=== PATIENT | male | born 1930 | race Caucasian/White ===

== ENCOUNTER 2016-07-21 10:26 | Inpatient (IN) | payer MEDICARE ==
[2016-07-21] VITALS (7 sets, daily range): BP systolic 109–149; BP diastolic 72–82; PULSE 84–88; RESP 16–28; O2SAT 94–98
[~2016-07-21] VITALS: Ht 177.8 cm; Wt 101.4 kg
[2016-07-21] MEDS ORDERED: METO-272 PO (13:00)
[2016-07-21] MEDS ORDERED: VENL75TA87 PO (13:00)
[2016-07-21] MEDS ORDERED: AMLO5TAB2 PO (13:00)
[2016-07-21] MEDS ORDERED: SOLI5TAB2 PO (13:01)
[2016-07-21] MEDS ORDERED: ALLO300T2 PO (13:02)
[2016-07-21] MEDS ORDERED: ENAL20TA PO (13:03)
[2016-07-21] MEDS ORDERED: Senna-Docusate 8.6-50 mg Tablet PO PRN (13:05)
[2016-07-21] MEDS ORDERED: Ondansetron 2 mg/mL 2 mL Inj IVPUSH PRN (13:05)
[2016-07-21] MEDS ORDERED: Alum-Mag Hydrox-Simeth 30 mL Suspension PO PRN (13:05)
[2016-07-21] MEDS ORDERED: Polyethylene Glycol (PEG) 17 Gm Powder PO PRN (13:05)
[2016-07-21] MEDS ORDERED: CALC0.257 PO (13:06)
[2016-07-21] MEDS ORDERED: PRAV40TA PO (13:06)
[2016-07-21] MEDS ORDERED: WARF5TAB7 PO (13:06)
[2016-07-21] MEDS ORDERED: WARF2.5T82 PO (13:06)
[2016-07-21] MEDS ORDERED: LATA2.5D6 BOTH_EYES (13:09)
[2016-07-21] MEDS ORDERED: TIMO5DRO26 BOTH_EYES (13:09)
[2016-07-21] MEDS ORDERED: OXYC-466 PO (13:09)
[2016-07-21] MEDS ORDERED: FURO80TA83 PO (13:10)
[2016-07-21] MEDS ORDERED: GABA-500 PO (13:10)
[2016-07-21] MEDS ORDERED: MULT-1083 PO (13:14)
[2016-07-21] MEDS ORDERED: CLOT15CR5 TOPICAL (13:14)
[2016-07-21] MEDS ORDERED: FERR325T39 PO (13:14)
[2016-07-21] MEDS ORDERED: UBID100C PO (13:14)
[2016-07-21] MEDS ORDERED: CHOL10008 PO (13:15)
--- NOTE | 2016-07-21 13:42 | NUR ---
Admit nurse: Direct admit from [facility], blood infusing on arrival. Med rec done with pt/spouse list and interview. Admit completed with info from spouse, pt on Bipap. Off Bipap, O2 sats dropped to 70s.
--- NOTE | 2016-07-21 15:16 | PCM.HPMED ---
Subjective Date of Service Jul 21, 2016 Primary Provider: Admitting Physician: Dayday Leyva MD Primary Care Physician: David Nascimento MD Attending Physician: Dayday Leyva MD Admit Status: Direct Admit, Critical Care Chief Complaint: Shortness of breath/difficulty breathing History of Present Illness: Mr. Sanchez is an 86-year-old gentleman with past medical history of hypertension, congestive heart failure, nephrolithiasis and atrial fibrillation (on anticoagulation) who presented to [facility] via EMS secondary to worsening of dyspnea 2-3 days. At time of interview patient on BiPAP and unable to answer in short 1-2 word answers history of present illness obtained though patient as well as his , daughter and son-in-law all present in the room. Approximately 3 weeks prior to today's admission patient had a ground-level fall (trip and fall) in his home landing on the right side of his body did not strike his head did not lose consciousness, reports no significant injuries resulting from this fall at the time. The following morning patient was unable to get out of bed secondary to extreme neck, back and right sided abdominal/flank pain presumably from this fall. This gradually improved over the next few weeks though never completely dissipated. During this time patient became noncompliant with some of his medications most notably his Lasix (160 mg daily) as it would "make him P2 much " so he stopped taking these. He became progressively short of breath to the point where he was unable to walk more than 10 feet. Upon discovering this his restarted him on this medication approximately one week ago. Over the last 2-3 days he has become progressively short of breath on exertion as well as while at rest to the point where called EMS. He does not endorse a cough with the exception of a chronic cough after drinking liquids which has been present for some time now. He denies any fevers or sick contacts. Denies any headache, altered mental status denies, visual changes though endorses a left eye blurriness which has been present for some time. He does endorse shortness of breath upon exertion, right lower quadrant abdominal/flank pain right lower extremity pain and a right lower and upper extremity weakness. Family history: Mother passed secondary to call patient's from diabetes requiring multiple amputations as well as eventual intubation and ventilatory support prior to her . Father passed from myocardial infarction age 74. Sister passed from stroke 2 years ago. Social history: Prior smoker quit 50 years ago prior to that in approximately one pack per day. Drinks 1-2 drinks of alcohol whiskey/beer per day. Denies drug use. Exposures/travel/work history: Patient joined the [employer] at a young age working on a [employer] in [place] and the [employer], [place]. He has worked in [employer] trees in the [facility]. He endorses a tuberculosis exposure from his mother at age 11, requiring quarantine unsure if medications were administered. 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 Only pets have been cats and dogs though has lived around cows and horses. Last travel was 3 years ago to [place] with . Prior to that he does endorse traveling to the [facility] region of the country. Never has traveled outside of the country. He has gotten his flu shot this year and reports she thinks she is up-to-date with his pneumonia shots. In the [facility] emergency department patient received an ECG which showed no acute ischemia chest x-ray showed an enlarged heart. INR was found to be 8.5, d-dimer 0.51, glucose 183, creatinine 4.1, troponin 0.45, WBC 12, hemoglobin 6.3 hematocrit 21.8 and pro calcitonin 0.8. Prior to transfer to [facility] patient received DuoNeb's, vancomycin and gentamicin, and 1 unit of PRBCs with additional unit transfusing at time of admission. A comprehensive review of systems was conducted with the patient and found to be negative except as above in the history of present illness. Allergies Coded Allergies: No Known Allergies (Unverified , 07/21/16) Home Medications Per medication list provided by patient's spouse: Amlodipine 5 mg, 1 tablet 2 times per day Metoprolol ER 50 mg, 4 tablets - 2 tablets AM and 2 tablets PM daily Venlafaxine ER 75 mg, 1 tablet daily Vesicare 5 mg, 1 tablet daily Allopurinol 300 mg, 1 tablet daily Enalapril 20 mg, 2 tablets -1 tablet a.m., 1 tablet p.m. Warfarin 5 mg Sunday Warfarin 2.5 mg Sunday Calcitriol 0.25 one capsule daily Pravastatin 40 mg 1 tablet daily Oxycodone 10/325, 1 tablet 2 times daily as needed [place] minnie 0.005, 1 drop daily Atenolol 0.5, 1 drop daily Furosemide 40 mg 4 tablets daily- 2 tablets a.m. and 2 tablets p.m. Gabapentin 100 mg, 3 capsules per day Omeprazole and betamethasone 45 g, use 2 times per day as needed Iron tablets 65 mg, 2 tablets a.m. and 2 tablets p.m. Coenzyme Q 10-300 milligrams 1 capsule daily Vitamin D3 one capsule daily Multivitamin 1 tablet daily PMH Atrial fibrillation Congestive heart failure Hypertension Nephrolithiasis Pneumonia Possible COPD Surgical History Back surgery Shoulder surgery Family History See history of present illness Social History Occupation: see history of present illness Hx Alcohol Use: Yes Alcoholic Drinks Per Day: 1-2 drinks Hx Substance Use: No Hx Tobacco Use: Yes (see history of present illness) Living Arrangement: with Family Exam Vital Signs Vital Sign - Last Date Time Temp Pulse Resp B/P Pulse Ox O2 Delivery O2 Flow Rate FiO2 07/21/16 12:05 71 19 116/74 94 75 Exam General: Obese male sitting up in hospital bed awake and alert and appropriately interactive in no acute distress BiPAP in place. HEENT: Normocephalic, atraumatic. External ears without defect. Pupils equal, round, and reactive to light and accommodation. Pale sclerae, moist conjunctivae, and no lid lag. Oropharynx free of erythema and cobble stoning with dry mucosa. Neck: Supple with full range of motion. No jugular venous distension. No bruits. No lymphadenopathy or thyromegaly. Cardiovascular: Irregularly irregular rhythm with a regular rate, no murmurs rubs or gallops appreciated. Pulmonary: Clear to auscultation bilaterally upper anterior lobes though difficult to appreciate secondary to BiPAP. No wheezes crackles or rhonchi appreciated. Normal respiratory effort with no use of accessory muscles Abdomen: Hyperactive Bowel tones present. Distended abdomen (patient reports this is his baseline). Right lower quadrant shows some rigidity and tenderness on deep palpation. Extremities: No significant edema appreciated in lower extremities, SCDs in place. No cyanosis appreciated extremities warm to palpation. Skin: Normal temperature, turgor, and texture; no rash, ulcers, or subcutaneous nodules appreciated. Neurological: Cranial nerves grossly intact. Patient has known gait impairment , requiring the use of cane while walking. Psychiatric: Normal mood and affect. Alert and oriented to person, place, and time. Lab and Diagnostics X-Rays, CTs and MRIs . X-RAY CHEST ONE VIEW, PORTABLE IMPRESSION: 1. Continued extensive bilateral airspace disease (right significantly greater than left), suspicious for multifocal pneumonia. The need for better characterization of this airspace disease utilizing CT of the chest may be determined clinically. 2. Cardiomegaly with mild vascular congestion. Dictated by: Leoncio Langston M.D. on 07/21/2016 at 14:52 Assessment & Plan 86-year-old gentleman with past medical history of A. fib (on warfarin), CHF, hypertension, chronic kidney disease, pneumonia and probable COPD direct admit to CCU from [facility] emergency Department secondary to shortness of breath and acute blood loss anemia. Hospital day 1. 1. CHF exacerbation. Present on admission. Ongoing. Unknown if CHF is systolic or diastolic in nature - Most likely secondary to noncompliance with home medications - Hold home metoprolol, enalapril, amlodipine secondary to hemodynamic state ( patient currently undergoing blood transfusion) - Will start Lasix 40 mg daily after echo results (home dose 2 times greater, we will consider increasing based on response) - CXR showed cardiomegaly - Echocardiogram pending - Request prior records 2. Acute hypoxic respiratory failure. Present on admission. Ongoing - Etiologies include pneumonia, obesity hypoventilation syndrome, undiagnosed COPD exacerbation - O2 saturations reportedly in the 70s at [facility] ED. - Patient currently requiring BiPAP with FiO2 of 75 to maintain saturation levels in the high 80s to low 90s. - CXR showed possible bilateral multifocal pneumonia - ABGs pending - DuoNeb's every 4 - Prednisone 40 mg daily 3. Suspicion for pneumonia. Present on admission. Ongoing - Etiologies include community acquired pneumonia as well as aspiration pneumonia - Appropriate cultures and serologies pending - WBC 11 - Pro calcitonin [facility] 0.8, repeat lab pending - Patient received vancomycin and gentamicin in [facility] ED - MRSA screen pending continue vancomycin until negative result - Start meropenem, 2/2 good coverage for both CPAP and aspiration pneumonia 4. Acute blood loss anemia. Present on admission. Improving - Source most likely GI, possible right flank intra-abdominal secondary to GI left 3 weeks prior - INR at [facility] 8.5, repeat labs pending - Hemoglobin 6.3 at [facility], 2 units PRBC received - repeat hemoglobin 7.9 - Type and cross - We will give Additional unit - 2 units on standby - Hold warfarin, pharmacy to dose - 10 mg Vitamin K - Ultrasound right flank for possible intra-abdominal bleed - CT held secondary to #5 5. Chronic kidney disease. Present on admission. Ongoing - Per interview patient "on the road to dialysis" - Creatinine at [facility] 2.4, GFR 17 - Repeat labs pending - Nephrology consult, we appreciate their recommendations 6. Morbid obesity. Present on admission. Ongoing - BMI 42.9 - Encourage weight loss 7. Drug dependence. Present on admission. Ongoing - Patient on oxycodone 10/325 twice a day secondary to chronic back pain - Continue to monitor 8. Hyperlipidemia. Present on admission. Ongoing - Lipid panel pending - Continue home pravastatin 9. Depression. Present on admission. Ongoing - Continue home venlafaxine 10. Hyperglycemia. Present on admission. Ongoing - A1c pending - Low-dose correctional scale DVT prophylaxis: SCDs, anticoagulation held secondary to supratherapeutic INR and anemia. Patient Status: Patient was admitted under inpatient status with expected length of stay greater than two midnights due to severity of presenting symptoms , risk of adverse event, and complexity of treatment plan. CODE STATUS as of now. Patient would like everything except intubation. Pain Evaluation: Adequate Pain Control GI Prophylaxis: H2 kacey VTE Prophylaxis: Theraputic Anticoag with Warfarin, SCDs Resuscitation Status: Limited Interventions Limited Interventions: Compressions, Cardioversion/Defibrillation, BiPAP, Medications and IV Fluid Attending Statement The patient was seen and examined together with Dr. Hahn on 07/21/2016 and I agree with the history, exam and plan as outlined in the note above. . MATTHEW HAHN DO Jul 21, 2016 13:01 Dayday Leyva MD Jul 21, 2016 17:56
--- NOTE | 2016-07-21 15:56 | DRSVH ---
PROCEDURE: X-RAY CHEST ONE VIEW, PORTABLE ([id number]) INDICATIONS: SHORTNESS OF BREATH TECHNIQUE: One view of the chest was acquired. COMPARISON: Outside Film, CR, XR CHEST 1VW (PORTABLE), 07/21/2016, 7:41. FINDINGS: Surgical changes and devices: None. Lungs and pleura: The aeration of the lungs are similar to the previous exam with patchy diffuse airs pace disease throughout the right lung and airspace disease within the left perihilar and infrahilar region. No large effusion or pneumothorax is evident. Mediastinum: The heart is enlarged. The pulmonary vasculature slightly prominent. There is aortic a therosclerosis. Bones and chest wall: No suspicious bony lesions. Degenerative changes of the shoulders and spine a re present. Overlying soft tissues appear unremarkable. IMPRESSION: 1. Continued extensive bilateral airspace disease (right significantly greater than left), suspiciou s for multifocal pneumonia. The need for better characterization of this airspace disease utilizing CT of the chest may be determined clinically. 2. Cardiomegaly with mild vascular congestion. Dictated by: Leoncio Langston M.D. on 07/21/2016 at 14:52 Approved by: Leoncio Langston M.D. on 07/21/2016 at 14:55
[2016-07-21 16:01] LABS: BASOPHILS % (AUTO) 0.1 % (0-3); EOSINOPHILS % (AUTO) 0 % (0-5); MONOCYTES % (AUTO) 7.5 % (4-12); Mean Corpuscular Hemoglobin 28.3 pg (27.0-35.0); Mean Corpuscular Volume 89.6 fL (81-100); NEUTROPHILS % (AUTO) 86.9 % (40-74); Platelet Count 262 bil/L (150-400)
[2016-07-21 16:33] LABS: Magnesium 2.6 mg/dL (1.6-2.6)
[2016-07-21 16:34] LABS: INR 8.1 ratio
[2016-07-21] MEDS ORDERED: Phytonadione (Adult) 10 MG in Dextrose 5%-Pha MIX 50 ML IV ONE (16:35)
[2016-07-21] MEDS ORDERED: oxyCODONE-Acetamin 10-325 mg Tablet PO PRN (16:40)
[2016-07-21] MEDS ORDERED: Glucose 40% Oral Gel 15 Gm Tube PO PRN (16:40)
--- NOTE | 2016-07-21 16:47 | NUR ---
Resp/Labs.. Pt received as direct admit from ER at [facility] via ambulance. Arrived with blood transfusing (2nd of 2 ordered). Was on Cpap machine for transport.. Placed on bipap on arrival. Noted to desat to the 80's if off bipap for any time. Unable to cough up any sputum at this time. Has had no uop since arrival. Dr Parikh updated and bladder scan ordered. Labs relayed to Dr Hahn. Family present in room and are updated on status and plan of care.
[2016-07-21] MEDS ORDERED: 0.9% Sodium Chloride 250 ML IV ONE (16:55)
[2016-07-21] MEDS: Insulin LISPRO 300 Unit/3 mL Inj SUBQ SCH ×2 (17:30→22:00)
[2016-07-21] MEDS ORDERED: Furosemide 10 mg/mL 10 mL Inj IVPUSH SCH (17:30)
[2016-07-21] MEDS ORDERED: Vancomycin Inj 1,500 MG in 0.9% Sodium Chloride 500 ML IV ONE (17:30)
[2016-07-21] MEDS ORDERED: Meropenem Inj 1,000 MG in IV Premix 1 EACH IV ONE (17:30)
[2016-07-21] MEDS ORDERED: Meropenem Inj 1,000 MG in 0.9% Sodium Chloride 100 ML IV ONE (17:34)
--- NOTE | 2016-07-21 17:42 | PCM.CONPHA ---
Subjective Date of Service: Jul 21, 2016 Requesting Provider: MATTHEW VALENTIN DO Shortness of breath/difficulty breathing Reason for Pharmacy Consult: Vancomycin Dosing Objective Vital Signs Date Time Temp Pulse Resp B/P Pulse Ox O2 Delivery O2 Flow Rate FiO2 07/21/16 16:00 CPAP/BIPAP 07/21/16 15:56 73 18 117/73 96 75 07/21/16 12:05 71 19 116/74 94 75 Weight (Kilograms): 135.500 Height (Feet): 5 Height (Inches): 10.00 Test 07/21/16 15:50 07/21/16 16:15 White Blood Count 11.0th/mm3 (3.8-10.1) Red Blood Count 2.79mil/mm3 (4.40-5.80) Hemoglobin 7.9g/dL (13.8-17.2) Hematocrit 25.0% (41.0-50.0) Mean Corpuscular Volume 89.6fL (81-100) Mean Corpuscular Hemoglobin 28.3pg (27.0-35.0) Mean Corpuscular Hemoglobin Concent 31.6% (32.0-37.0) Red Cell Distribution Width 18.7% (12.3-15.4) Platelet Count 262bil/L (150-400) Neutrophils (%) (Auto) 86.9% (40-74) Lymphocytes (%) (Auto) 5.3% (14-46) Monocytes (%) (Auto) 7.5% (4-12) Eosinophils (%) (Auto) 0% (0-5) Basophils (%) (Auto) 0.1% (0-3) Prothrombin Time 90.4sec (8.1-12.5) Prothromb Time International Ratio 8.10ratio Sodium Level 141mEq/L (134-144) Potassium Level 4.5mEq/L (3.5-5.2) Chloride Level 102mEq/L (97-108) Carbon Dioxide Level 20mmol/L (18-29) Blood Urea Nitrogen 60mg/dL (8-27) Creatinine 4.05mg/dL (0.76-1.27) Estimat Glomerular Filtration Rate 15mL/min (>59) Glucose Level 158mg/dL (60-99) Lactic Acid Level 1.9mmol/L (0.4-2.0) Calcium Level 9.0mg/dL (8.5-10.1) Magnesium Level 2.6mg/dL (1.6-2.6) Total Bilirubin 1.2mg/dL (0.0-1.2) Aspartate Amino Transf (AST/SGOT) 141U/L (0-50) Alanine Aminotransferase (ALT/SGPT) 102U/L (0-44) Alkaline Phosphatase 67U/L (25-160) Total Protein 6.2g/dL (6.4-8.4) Albumin 3.0g/dL (3.4-5.0) Triglycerides Level 77mg/dL (0-149) Cholesterol Level 94mg/dL (100-199) LDL Cholesterol, Calculated 41.600mg/dL (0-99) VLDL Cholesterol 15.400mg/dL HDL Cholesterol 37mg/dL (>39) Cholesterol/HDL Ratio 2.54 (0.0-4.4) Lipase 121U/L (13-60) Procalcitonin 1.16ng/mL (0.00-0.08) Thyroid Stimulating Hormone (TSH) 1.370uIU/mL (0.450-4.500) Assessment/Plan Assessment/Plan Vanco per Rx Indications: Empiric for MRSA? /PNA? CKD Stage 5; WBC 11.0; BMI 43 One time dose of 1500mg; trough in 24 hrs to assess further dosing Abebe Lee PharmD Jul 21, 2016 17:42
--- NOTE | 2016-07-21 17:50 | PCM.CONPHA ---
Subjective Date of Service: Jul 21, 2016 Requesting Provider: MATTHEW VALENTIN DO Shortness of breath/difficulty breathing Reason for Pharmacy Consult: Anticoagulation Management Objective Vital Signs Date Time Temp Pulse Resp B/P Pulse Ox O2 Delivery O2 Flow Rate FiO2 07/21/16 16:00 CPAP/BIPAP 07/21/16 15:56 73 18 117/73 96 75 07/21/16 12:05 71 19 116/74 94 75 Weight (Kilograms): 135.500 Height (Feet): 5 Height (Inches): 10.00 Test 07/21/16 15:50 07/21/16 16:15 07/21/16 17:41 White Blood Count 11.0th/mm3 (3.8-10.1) Red Blood Count 2.79mil/mm3 (4.40-5.80) Hemoglobin 7.9g/dL (13.8-17.2) Hematocrit 25.0% (41.0-50.0) Mean Corpuscular Volume 89.6fL (81-100) Mean Corpuscular Hemoglobin 28.3pg (27.0-35.0) Mean Corpuscular Hemoglobin Concent 31.6% (32.0-37.0) Red Cell Distribution Width 18.7% (12.3-15.4) Platelet Count 262bil/L (150-400) Neutrophils (%) (Auto) 86.9% (40-74) Lymphocytes (%) (Auto) 5.3% (14-46) Monocytes (%) (Auto) 7.5% (4-12) Eosinophils (%) (Auto) 0% (0-5) Basophils (%) (Auto) 0.1% (0-3) Prothrombin Time 90.4sec (8.1-12.5) Prothromb Time International Ratio 8.10ratio Sodium Level 141mEq/L (134-144) Potassium Level 4.5mEq/L (3.5-5.2) Chloride Level 102mEq/L (97-108) Carbon Dioxide Level 20mmol/L (18-29) Blood Urea Nitrogen 60mg/dL (8-27) Creatinine 4.05mg/dL (0.76-1.27) Estimat Glomerular Filtration Rate 15mL/min (>59) Glucose Level 158mg/dL (60-99) Lactic Acid Level 1.9mmol/L (0.4-2.0) Calcium Level 9.0mg/dL (8.5-10.1) Magnesium Level 2.6mg/dL (1.6-2.6) Total Bilirubin 1.2mg/dL (0.0-1.2) Aspartate Amino Transf (AST/SGOT) 141U/L (0-50) Alanine Aminotransferase (ALT/SGPT) 102U/L (0-44) Alkaline Phosphatase 67U/L (25-160) Total Protein 6.2g/dL (6.4-8.4) Albumin 3.0g/dL (3.4-5.0) Triglycerides Level 77mg/dL (0-149) Cholesterol Level 94mg/dL (100-199) LDL Cholesterol, Calculated 41.600mg/dL (0-99) VLDL Cholesterol 15.400mg/dL HDL Cholesterol 37mg/dL (>39) Cholesterol/HDL Ratio 2.54 (0.0-4.4) Lipase 121U/L (13-60) Procalcitonin 1.16ng/mL (0.00-0.08) Thyroid Stimulating Hormone (TSH) 1.370uIU/mL (0.450-4.500) Assessment/Plan Assessment/Plan Warfarin per Rx Indication: A-Fib Home Dose 5mg ///, 2.5mg Arce//Sa INR 8.1, symptomatic -> Vit K 10mg IV ordered Hold warfarin tonight; Daily INR ordered Abbee Lee PharmD Jul 21, 2016 17:50
[2016-07-21] MEDS: Vancomycin Dose per Pharmacist XX SCH (18:00)
[2016-07-21 18:23] LABS: APPEARANCE,URINE CLEAR (CLEAR,HAZY); COLOR,URINE DARK YELLOW (YELLOW); PH,URINE 5.5 (5.0-8.0)
[2016-07-21 18:24] LABS: OCCULT BLOOD,URINE TRACE (NEGATIVE); UROBILINOGEN,URINE NORMAL (NORMAL)
--- NOTE | 2016-07-21 19:48 | DRSVH ---
PROCEDURE: US RENAL SONOGRAM INDICATIONS: Righ flank pain, poss bleed TECHNIQUE: Real-time scanning was performed of the kidneys and bladder, with image documentation. COMPARISON: None. FINDINGS: Kidneys: Kidneys are normal in size. Right kidney measures 9.4 cm long; left kidney measures 9.8 cm long. Right renal cortical thickness is 0.9 cm; left renal cortical thickness is 0.9 cm. . No hyd ronephrosis or nephrolithiasis. No suspicious solid mass lesions. There are multiple cysts includin g one 0.3 cm cyst inferior pole right kidney. 1.9 cm cyst seen in the upper pole of the left kidney. 1.2 cm simple appearing cyst in the upper pole of the left kidney. Nonspecific heterogeneous appearan ce of the renal pelves bilaterally Bladder: Pre-void bladder volume is 96 mL. Post-void residual is 38 mL. Pre-void images demonstrat e no intraluminal masses or stones. On pre-void images, neither of the ureteral jets are noted with color Doppler interrogation. (Of note, ureteral jets may not be detectable in up to 25% of cases due to insufficient differences in specific gravity between ureteral and bladder urine). Miscellaneous: No free pelvic fluid. There is thickening of the gallbladder wall measuring 4-5 mm. There is pericholecystic fluid. Common hepatic duct appears within normal limits, nondilated. IMPRESSION: Findings suggesting acute cholecystitis as above. Please correlate clinically and with LFTs. Findings were provided to the patient's clinical team (Nathalie Linares RN), by the global regulatory lead, at the time of the examination 1855 hours on 07/21/16. 38 cc postvoid residual. Bilateral renal cortical thinning/atrophy and multiple bilateral renal cysts. No hydronephrosis. Dictated by: Horace Pantoja M.D. on 07/21/2016 at 19:38 Approved by: Horace Pantoja M.D. on 07/21/2016 at 19:46
--- NOTE | 2016-07-21 20:07 | CONS ---
[address] [address] CONSULTATION REPORT PATIENT: ROLA GILLESPIE : 1930 MR#: [id number] ADMIT: 07/21/2016 JOB ID: [id number] CORRECTED REPORT: DATE OF SERVICE: 07/21/2016 HISTORY: Mr. Gillespie is a very pleasant, 86-year-old, white male who was transferred to [facility] from an outside emergency department for decompensated congestive heart failure and acute anemia. He has a history of chronic stage 5 kidney disease and is followed by a rn pediatric icu at [facility]. Renal consultation is being sought for further evaluation and management of his chronic kidney disease and anemia. Most of the history has been obtained from the patient's as the patient is on CPAP and quite lethargic. He apparently has a longstanding history of chronic kidney disease. However, the is unable to state an exact cause for this. He does have a history of renal lithiasis and a longstanding history of hypertension with hypertensive heart disease and hypertensive nephrosclerosis, which may be the etiology of his renal failure. He also has a history of congestive heart failure and atrial fibrillation for which he is taking warfarin. He had a near syncopal episode. However, he did not strike his head. He has been quite lethargic with progressive lower extremity edema and increasing abdominal girth over the last week or so prior to admission. He has had progressive orthopnea, dyspnea with minimal exertion, and now dyspnea at rest. He has not had a cough per se, but does have some questionable aspiration. There is no chest pain during this episode. At [facility], his INR was found to be 8.5. His creatinine was 4.1, and his hemoglobin was 6.3. He was given several doses of antibiotics and 1 unit of packed red cells prior to transfer. Since arrival at the hospital,, his breathing status has improved somewhat. However, he remains quite lethargic and minimally responsive. PAST MEDICAL HISTORY: Significant for hypertension with hypertensive heart disease and hypertensive nephrosclerosis, congestive heart failure, but I am unsure as to what his ejection fraction is as he is not seen by one of our cardiologists, atrial fibrillation, renal lithiasis, history of pneumonia and COPD. There is also a history of peripheral neuropathy, and hyperlipidemia, and what appears to be possible prostatic hypertrophy. PAST SURGICAL HISTORY: Significant for back surgery and shoulder surgery. He is not allergic to any food or any medication. SOCIAL HISTORY: There is an extensive history of cigarette use and I am unsure as to whether he is continuing to smoke or not. He continues to drink 1-2 drinks per day. REVIEW OF SYSTEMS: Is detailed above. Otherwise is unobtainable. FAMILY HISTORY: Unobtainable. PHYSICAL EXAMINATION: Reveals an obese, 86-year-old, white male who was quite somnolent and on CPAP at time of my evaluation. His blood pressure is 117/73, with a heart rate of 73 and irregular. HEENT examination is remarkable for pale sclerae. Neck is supple without adenopathy, thyromegaly, or jugular venous distention. Heart was irregularly irregular. Abdomen is soft but quite distended with evidence of a free fluid wave. He had evidence of hepatomegaly and a pulsatile liver with hepatojugular reflux. Otherwise, there was no tenderness, rebound, guarding or masses noted. Extremities had SCDs in place and there was very mild pitting edema limited to the bilateral distal lower extremities and a small part of the proximal lower extremity. Skin turgor was good and there was no evidence of any rashes. He did have evidence of [id number] nails. LABORATORY EXAMINATION: His most recent lab obtained at admission showed a hemoglobin 7.9, hematocrit 25.0. Red cell indices, platelet count and differential were normal. His sodium is 141, potassium 4.5, chloride 102, bicarbonate 20. BUN and creatinine were 60 and 4.05. Glucose is 156. Liver function studies showed an elevated AST at 141 and an ALT at 102. His albumin is 3. IMPRESSION: 1. Stage 5 kidney disease. 2. Anemia which is multifactorial, including blood loss and chronic kidney disease. 3. Hypertension with hypertensive heart disease and hypertensive nephrosclerosis with congestive heart failure, including biventricular congestive heart failure. RECOMMENDATION: I would like to get a limited abdominal ultrasound to evaluate for ascites. I would also like to check an iron, TIBC level, along with uric acid and a serum protein electrophoresis, and a urinalysis. I would also like to augment his diuresis with furosemide 80 mg every 8 hours x3 doses to see if we can try to mobilize the excess fluid. Once again, I would like to thank you for allowing me to participate in the care of this most pleasant but unfortunate patient. I will be following him closely with you. Corrected by JESUS 09/07/16 at 11:47am DOS.
[2016-07-21] MEDS ORDERED: Non-Formulary Medication (Pravastatin 40 MG) PO SCH (21:00)
[2016-07-21] MEDS: Albuterol-Ipratropium 3 mL Inhalation Solution NEB SCH (21:08)
[2016-07-21] MEDS: Furosemide 10 mg/mL 10 mL Inj IVPUSH SCH (21:44)
[2016-07-22] VITALS (14 sets, daily range): BP systolic 112–153; BP diastolic 62–75; PULSE 80–92; RESP 15–29; O2SAT 94–98
[2016-07-22] MEDS: Furosemide 10 mg/mL 10 mL Inj IVPUSH SCH ×3 (02:20→21:18)
[2016-07-22 03:02] LABS: BASOPHILS % (AUTO) 0.1 % (0-3); EOSINOPHILS % (AUTO) 0.5 % (0-5); MONOCYTES % (AUTO) 7.2 % (4-12); Mean Corpuscular Hemoglobin 27.7 pg (27.0-35.0); Mean Corpuscular Volume 85.8 fL (81-100); NEUTROPHILS % (AUTO) 85.4 % (40-74); Platelet Count 244 bil/L (150-400)
[2016-07-22 03:07] LABS: Vitamin D, 25-Hydroxy 69.8 ng/mL (30.0-100.0)
[2016-07-22 03:16] LABS: INR 2.61 ratio
[2016-07-22 03:38] LABS: Magnesium 2.5 mg/dL (1.6-2.6); Unsaturated Iron Binding 129.5 ug/dL
--- NOTE | 2016-07-22 04:49 | ABG ---
DateTimeAnalyzed 04:47:00 -_ pH ____7.404 - 7.350 7.450 pCO2 ___35.4__ -mmHg 35.0 45.0 pO2 101 -mmHg 69.0 116 HCO3- ___21.7__ -mmol/L 22.0 26.0 ABE ___-2.2__ -mmol/L -2.0 2.0 tHb ____8.3__ -g/dL O2Hb ___95.8__ -% COHb ____1.7__ -% MetHb ____1.0__ -% sO2 ___98.5__ -% 25.0 FIO2 ___55.0__ -% CPAP ___14.0__ -cmH2O PEEP ____6.0__ -cmH2O Set_RR ___14.0__ -b/min Drawn By AF - Date/Time Notified____ 04:49:00 -_ Spontaneous_RR ___16.0__ -b/min Oxygen Device 1 ____BIPAP - Notified By AF - Notified Whom __Amye RN - B 750 -mmHg tO2 ___11.3__ -Vol% Scooter test _Positive -
[2016-07-22] MEDS: Albuterol-Ipratropium 3 mL Inhalation Solution NEB SCH ×5 (05:10→21:48)
--- NOTE | 2016-07-22 05:38 | NUR ---
Pt remains on bipap at 65% with sats in the mid 90's. HR remains a-fib with rate in the 80's. 1 unit PRBC given with improvement in H/H to 8.4/26.0. Vital signs stable. INR much improved and is now 2.61. Pt is oriented and able to make needs known. Lasix given. Hickey cath inserted for accurate I/O. Will continue to monitor closely.
[2016-07-22] MEDS: Insulin LISPRO 300 Unit/3 mL Inj SUBQ SCH ×4 (08:00→21:21)
[2016-07-22] MEDS: Venlafaxine XR 75 mg ER24 Capsule PO SCH (08:30)
[2016-07-22] MEDS: Vancomycin Dose per Pharmacist XX SCH (08:30)
[2016-07-22] MEDS: Meropenem Inj 1,000 MG in 0.9% Sodium Chloride 100 ML IV SCH ×2 (09:11→21:18)
[2016-07-22] MEDS: predniSONE 20 mg Tablet PO SCH (09:11)
--- NOTE | 2016-07-22 10:42 | DRSVH ---
[facility] [address] [place] [place] [address] Echocardiogram Report Name: ROLA GILLESPIE te: 07/21/2016 Height: 70 in Hospital Exam Location: [facility] Weight: 299 lb Gender: Male BSA: 2.5 m2 : 1930 Age: 86 yrs BP: 116/74 mmHg Reason For Study: CHF Ordering Physician: Performed By: Cesar Salcido Interpretation Summary 1) Mild concentric left ventricular hypertrophy with normal left ventricular size and mildly to moderately reduced systolic function (EF 45-50%). 2) Severe septal hypokinesis and apical inferior hypokinesis present. 3) Normal right ventricular size with mildly to moderately reduced systolic function. 4) Marked biatrial enlargement. 5) Moderate to severe mitral regurgitation that is directed posteriorly. Mitral leaflet do not coapt well. 6) Moderate to severe tricuspid regurgitation. 7) Pulmonary hypertension present, estimated systolic pulmonary pressure of 50mmHg. 8) Dilated IVC suggested of elevated right sided filling pressures. 9) Mildly to moderately enlarged ascending aorta (diameter 4.2cm) and mildly enlarged aortic arch (diameter 3.3cm). 10) No prior Echo available for comparison. Procedure: A two-dimensional transthoracic echocardiogram with color flow and Doppler was performed. The study quality was technically good. There is no prior echocardiogram noted for this patient. The patient was in normal sinus rhythm during the exam. Left Ventricle: There is mild concentric left ventricular hypertrophy. The left ventricle is normal in size. The ejection fraction is estimated to be 40 -45%. There is septal wall hypokinesis. There is apical inferior wall hypokinesis. Right Ventricle: The right ventricle is normal size. Right ventricular systolic function is mild to moderately reduced. Atria: There is marked biatrial enlargement. The interatrial septum is intact with no evidence for an atrial septal defect. Mitral Valve: The mitral valve leaflets do not coapt well. There is moderate to severe mitral regurgitation. The mitral regurgitant jet is eccentrically directed. Aortic Valve: The aortic valve is trileaflet. The aortic valve opens well. There is mild aortic regurgitation. Tricuspid Valve: The tricuspid valve leaflets are thin and pliable. There is moderate to severe tricuspid regurgitation. The right ventricular systolic pressure is estimated at 50 mmHg assuming a right atrial pressure of 15 mm Hg. Pulmonic Valve: The pulmonic valve is normal in structure and function. There is mild pulmonic regurgitation. Great Vessels: The aortic root is normal size. The ascending aorta is mild- moderately enlarged. The aortic arch is mildly enlarged. The pulmonary artery is normal size. The IVC is dilated (diameter is greater than 2.1 cm) and it collapses less than 50% with a sniff. This suggests a high right atrial pressure of 15 mm Hg. Pericardium/ Pleura There is no pericardial effusion. There is no pleural effusion. MMode/2D Measurements & Calculations LVIDd: 5.7 cm LA dimension: 6.3 cm RA long axis: 7.9 cm Ao root diam LVIDs: 4.2 cm FS: 26.3 % LA A2 area: 58.6 cm RA area: 42.4 cm Aortic Jxn: 3.4 cm EPSS: 0.56 cm LA A4 area: 54.2 cm RA vol: 193.3 ml asc Aorta Diam IVSd: 1.3 cm LA length (vol) RA : 78.0 ml/m2 LVPWd: 1.2 cm Ao Arch Diam (Prox LA vol: 302.1 ml Trans): 3.3 cm LA vol index : 122.0 ml/m2 IVC diam: 2.4 cm EDV(MOD-sp2) LV armstrong. diameter/BSA LV sys. diameter/BSA RVD1 (basal) : 127.4 ml (cm/m^2): 2.3 (cm/m^2): 1.7 : 4.7 cm RVD2 (mid) : 3.9 cm Doppler Measurements & Calculations Ao V2 max MV E max ananth MV E/A: 65.7 TR max ananth : 128.8 cm/sec : 147.5 cm/sec Med Peak E' Ananth : 297.1 cm/sec Ao max PG MV A max ananth TR max PG : 6.7 mmHg : 2.2 cm/sec E/E' med: 25.7 : 35.4 mmHg Ao mean PG PA V2 max : 4.1 mmHg : 48.4 cm/sec PA mean PG : 0.55 mmHg PA Accel Time : 0.09 sec MV V2 mean Ao V2 mean PA V2 mean : 103.7 cm/sec : 97.3 cm/sec : 35.3 cm/sec MV mean PG Ao V2 VTI: 26.2 cm PA pr(Accel) : 36.6 mmHg MV V2 VTI: 19.3 cm MV dec time : 0.12 sec Reading Physician:10:41 AM
--- NOTE | 2016-07-22 11:44 | DRSVH ---
PROCEDURE: X-RAY CHEST ONE VIEW, PORTABLE ([id number]) INDICATIONS: Pneumonia TECHNIQUE: One view of the chest was acquired. COMPARISON: [facility], CR, XR CHEST 1VW (PORTABLE), 07/21/2016, 15:28. FINDINGS: Surgical changes and devices: practice physician leads are seen over the chest. Lungs and pleura: Small pleural effusions cannot be excluded and in fact are suspected. There is incr easing patchy airspace disease centrally in the right lung and inferiorly to midlung field on the lef t. Mediastinum: Mediastinal contours appear normal. Heart size is normal. Bones and chest wall: No suspicious bony lesions. Overlying soft tissues appear unremarkable. IMPRESSION: Worsening areas of pneumonia by laterally in the lungs. Probable small pleural effusions as well. Dictated by: Aaron Rendon M.D. on 07/22/2016 at 11:42 Approved by: Aaron Rendon M.D. on 07/22/2016 at 11:43
--- NOTE | 2016-07-22 11:53 | PCM.PNNEPH ---
Subjective Date of Service Jul 22, 2016 Subjective The patient is considerably better today compared to yesterday. He is still on CPAP he is much more alert and interactive today compared to yesterday. He has had marked increase in his urine output with IV furosemide. His breathing is considerably more comfortable and he denies any cough, wheezing, chest pain nausea or vomiting. He has already had a rollover 2 L of urine out in the l first 8 hours of today. His abdominal ultrasound showed increased echogenicity of his kidneys consistent with chronic kidney disease however no ascites was noted. He did have evidence of thickening of gallbladder and possible acute cholecystitis. This morning his sodium is 142, potassium 3.9, chloride 104, bicarbonate of 20, BUN and creatinine are 60 and 4.06, uric acid is 7.6, and PTH is 167. His transferrin saturation is 35%. Exam Vital Signs Vital Sign - Last Date Time Temp Pulse Resp B/P Pulse Ox O2 Delivery O2 Flow Rate FiO2 07/22/16 09:00 81 19 153/70 96 40 07/22/16 04:30 37.0 BiPAP Intake and Output 07/21/16 07/21/16 07/22/16 Cumulative From/Thru 15:00 23:00 07:00 07/21/16 14:31 - 07/22/16 05:56 Intake Total 267 ml 1563 ml 1830 ml Output Total 96 ml 1050 ml 1146 ml Balance 267 ml -96 ml 513 ml 684 ml Intake IV Total 1263 ml 1263 ml Packed Cells 267 ml 300 ml 567 ml Output Urine Total 96 ml 1050 ml 1146 ml # Bowel Movements 0 0 Exam HEENT examination is remarkable for pale sclera. Neck is supple without adenopathy thyromegaly or jugular venous distention. Lungs are clear to auscultation. Heart is regular and rhythmical with a soft systolic murmur. Abdomen is soft without any tenderness or rebound guarding masses or hepatosplenomegaly. Extremities showed CONSIDERABLY less edema in both lower extremities. Skin turgor is good nutritional evidence of any rashes. Lab and Diagnostics Result Diagram: 07/22/16 0250 07/22/16 0250 X-Rays, CTs and MRIs . X-RAY CHEST ONE VIEW, PORTABLE IMPRESSION: 1. Continued extensive bilateral airspace disease (right significantly greater than left), suspicious for multifocal pneumonia. The need for better characterization of this airspace disease utilizing CT of the chest may be determined clinically. 2. Cardiomegaly with mild vascular congestion. Dictated by: Leoncio Langston M.D. on 07/21/2016 at 14:52 Plan Impression Impression #1 stage V chronic kidney disease #2 hypertension with hypertensive heart disease and hypertensive nephrosclerosis with biventricular congestive heart failure #3 metabolic acidosis secondary to chronic kidney disease number for hyperuricemia #5 anemia which appears to be multifactorial. Recommendations #1 I would like to continue his IV diuretics however I would like to give him 1 additional dose and then change him to every 12 hours. I would also like to give him a dose of Aranesp 60 mg. I would also like to start him on allopurinol 100 mg once a day and sodium bicarbonate tablets 650 mg twice a day. David Parikh DO Jul 22, 2016 11:53
[2016-07-22] MEDS ORDERED: Darbepoetin Alfa 60 mCg/0.3 mL Inj SUBQ ONE (11:55)
--- NOTE | 2016-07-22 13:25 | NUR ---
Evaluation completed. Please go to "Notes" then click on "Assessments and Notes" (bottom left corner of screen). Then select appropriate discipline tab on top of screen.
--- NOTE | 2016-07-22 14:17 | NUR ---
NUTRITION ASSESSMENT: ASSESS:86 YO male admitted to CCU with worsening of dyspnea 2-3 days and acute blood loss anemia. He remains hospitalized with CHF exacerbation due to medication noncompliance, suspicion for pneumonia. GI most likely source of anemia; ultrasound pending. He is requiring BiPAP; Speech Therapy unable to advance diet until pt. off BiPAP. Code status: DNI. PMHx:A-fib, CHF, HTN, nephrolithiasis, pneumonia, possible COPD. DIET:NPO per ST. LABS: BUN 60, Cr 4.03, glu 136, A1c 6.0, UA 7.6, Ca 8.1, AST 89, ALT 93, Alb 2.6. MEDICATIONS: Lasix, prednisone, lopressor, insulin. NUTRITION FOCUSED PHYSICAL ASSESSMENT: GI symptoms / stool: No stool reported.Rojelio: 15 Skin Integrity: No issues reported. ANTHROPOMETRICS: Current Wt: 137.6 kgBMI: 43.5 kg/m2. IBW: 75.45 kg (182% IBW) ESTIMATED NEEDS (CLASS III OBESITY, STAGE 5 RENAL DISEASE): Calories: 1886 - 2264 kcal (25 - 30 kcal / kg IBW) Protein: 75 - 91 g protein 1.0 - 1.2 g / kg IBW) Fluid: Approx. 3440 mL (25 mL / kg BW) NUTRITION DIAGNOSIS: 1)Chewing / swallowing difficulties related to requirement for BiPAP, as evidenced by NPO status per ST order, inadequate oral intake. INTERVENTION: 1) No intervention at this time. 2) In the event diet unable to be advanced over weekend, recommend consideration of nutrition support Monday 07/24. MONITOR/EVALUATE: Diet advance / tolerance, PO intake, labs, GI/nutrition status. Follow up per high nutrition risk guidelines.
--- NOTE | 2016-07-22 15:34 | CONS ---
[address] [address] CONSULTATION REPORT PATIENT: ROLA GILLESPIE : 1930 MR#: [id number] ADMIT: 07/21/2016 JOB ID: [id number] DATE OF SERVICE: 07/22/2016 CHIEF COMPLAINT: Shortness of breath. HISTORY OF PRESENT ILLNESS: The patient is an 86-year-old man who has been on the hospitalist service for acute exacerbation of CHF. His main complaint on admission was dyspnea with exertion and shortness of breath at rest. He was also complaining of some right lower quadrant and right flank pain. He also has had chronic kidney disease, and discussions about dialysis have been had but no direct plans for proceeding with dialysis yet. His initial evaluation included an INR of 8.5, so an ultrasound of the retroperitoneum was obtained to look for evidence of retroperitoneal hemorrhage. The ultrasound was performed yesterday afternoon. This showed thickening of the gallbladder wall to 4-5 mm with pericholecystic fluid. Common bile duct was normal. There was no evidence of gallstones. There is no description of the appearance of the liver. There was no hydronephrosis. Note that today he is not complaining of any abdominal pain whatsoever. He has no nausea. PAST MEDICAL HISTORY: Atrial fibrillation, congestive heart failure, hypertension, nephrolithiasis, pneumonia, COPD. PAST SURGICAL HISTORY: Back surgery, shoulder surgery, no abdominal operations. MEDICATIONS: At home include amlodipine, metoprolol, venlafaxine, VESIcare, allopurinol, enalapril, warfarin, calcitriol, pravastatin, oxycodone, latanoprost, atenolol, furosemide, gabapentin, omeprazole, iron tablets, Coenzyme Q10, vitamin D3, and multivitamin. ALLERGIES: No known drug allergies. SOCIAL HISTORY: He drinks 1-2 alcoholic beverages per day. Quit smoking 50 years ago. No illicit drug use. FAMILY HISTORY: Mother had diabetes and respiratory failure. Father had myocardial infarction. Sister had a stroke. REVIEW OF SYSTEMS: A 10-point review of systems is negative except as described in History of Present Illness. PHYSICAL EXAMINATION: Body mass index of 43.5, temperature 37.0, pulse 86, respirations 29, blood pressure 124/71, saturation 96% on CPAP. General: He is sitting up in bed, short of breath, but otherwise in no distress. HEENT: CPAP is in place. Neck: No lymphadenopathy. Chest: Coarse breath sounds. Heart: Irregularly irregular. No murmurs. Abdomen is obese, but soft. He has no tenderness to deep palpation in the right upper quadrant, no guarding, no rebound tenderness, no palpable masses. Extremities: Peripheral edema. Neuro: No deficits. Psychiatric: Affect is appropriate. LABORATORY DATA: White blood cell count 10.0, hematocrit 26.0, platelets 244. Creatinine 4.03. BUN 68. Glucose 136. Bilirubin 1.0, AST 89, ALT 93, alkaline phosphatase 62. IMAGING: As described in History of Present Illness. ASSESSMENT AND PLAN: An 86-year-old man with acute congestive heart failure and edema of the gallbladder wall, but no evidence of cholecystitis. In a patient with acute congestive heart failure, gallbladder wall edema and pericholecystic fluid is an incidental finding in a patient without abdominal pain and no nausea. I do not think this needs additional evaluation. If he is decompensating considerably, then recommend a HIDA scan to look for obstruction of the cystic duct or nonfilling of the gallbladder. Otherwise General Surgery will sign off.
--- NOTE | 2016-07-22 16:57 | PCM.PNMED ---
Subjective Date of Service Jul 22, 2016 Subjective Mr. Sanchez is an 86-year-old gentleman with past medical history of hypertension, congestive heart failure, nephrolithiasis and atrial fibrillation (on anticoagulation) admitted for CHF exacerbation/shortness of breath Overnight: Sinus rhythm in the 80s throughout the night. No acute events reported. FiO2 decreased to 0.4. Today: Patient awake and alert responding appropriately sitting in bedside reclining chair. No acute distress with no complaints to report. Ultrasound showed gallbladder wall thickening. Surgery consult no surgical intervention warranted at this time. Exam Vital Signs Vital Sign - Last Date Time Temp Pulse Resp B/P Pulse Ox O2 Delivery O2 Flow Rate FiO2 07/22/16 15:40 86 18 119/62 98 40 07/22/16 04:30 37.0 BiPAP Intake and Output 07/21/16 07/21/16 07/22/16 Cumulative From/Thru 15:00 23:00 07:00 07/21/16 14:31 - 07/22/16 05:56 Intake Total 267 ml 1563 ml 1830 ml Output Total 96 ml 1050 ml 1146 ml Balance 267 ml -96 ml 513 ml 684 ml Intake IV Total 1263 ml 1263 ml Packed Cells 267 ml 300 ml 567 ml Output Urine Total 96 ml 1050 ml 1146 ml # Bowel Movements 0 0 Exam General: Obese male sitting up in bedside reclining chair, awake and alert and appropriately interactive, in no acute distress with BiPAP in place HEENT: Normocephalic, atraumatic. External ears without defect. Pupils equal, round, and reactive to light and accommodation. Pale sclerae, moist conjunctivae, and no lid lag. Oropharynx free of erythema and cobble stoning with dry mucosa. Neck: Supple with full range of motion. No jugular venous distension. No bruits. Cardiovascular: Irregularly irregular rhythm with a regular rate, no murmurs rubs or gallops appreciated. Pulmonary: Clear to auscultation bilaterally upper anterior lobes though difficult to appreciate secondary to BiPAP. No wheezes crackles or rhonchi appreciated. Normal respiratory effort with no use of accessory muscles Abdomen: Soft palpation 4 quadrants, patient still reports some tenderness in his right upper quadrant Extremities: No significant edema appreciated in lower extremities, SCDs in place. No cyanosis appreciated extremities warm to palpation. Skin: Normal temperature, turgor, and texture; no rash, ulcers, or subcutaneous nodules appreciated. Neurological: Cranial nerves grossly intact. Patient has known gait impairment , requiring the use of cane while walking. Psychiatric: Normal mood and affect. Alert and oriented to person, place, and time. IVs and Medications Medications Reviewed: Medications were reviewed in detail Lab and Diagnostics Result Diagram: 07/22/1624907/22/16 025 X-Rays, CTs and MRIs . X-RAY CHEST ONE VIEW, PORTABLE IMPRESSION: 1. Continued extensive bilateral airspace disease (right significantly greater than left), suspicious for multifocal pneumonia. The need for better characterization of this airspace disease utilizing CT of the chest may be determined clinically. 2. Cardiomegaly with mild vascular congestion. Dictated by: Leoncio Langston M.D. on 07/21/2016 at 14:52 US RENAL SONOGRAM IMPRESSION: Findings suggesting acute cholecystitis as above. Please correlate clinically and with LFTs. Findings were provided to the patient's clinical team (Nathalie Linares RN), by the purler, at the time of the examination 1855 hours on . 38 cc postvoid residual. Bilateral renal cortical thinning/atrophy and multiple bilateral renal cysts. No hydronephrosis. Dictated by: Horace Pantoja M.D. on 07/21/2016 at 19:38 X-RAY CHEST ONE VIEW, PORTABLE IMPRESSION: Worsening areas of pneumonia by laterally in the lungs. Probable small pleural effusions as well. Dictated by: Aaron Rendon M.D. on 07/22/2016 at 11:42 Cardiac Echo Impressions Echocardiogram Report Interpretation Summary 1) Mild concentric left ventricular hypertrophy with normal left ventricular size and mildly to moderately reduced systolic function (EF 45-50%). 2) Severe septal hypokinesis and apical inferior hypokinesis present. 3) Normal right ventricular size with mildly to moderately reduced systolic function. 4) Marked biatrial enlargement. 5) Moderate to severe mitral regurgitation that is directed posteriorly. Mitral leaflet do not coapt well. 6) Moderate to severe tricuspid regurgitation. 7) Pulmonary hypertension present, estimated systolic pulmonary pressure of 50mmHg. 8) Dilated IVC suggested of elevated right sided filling pressures. 9) Mildly to moderately enlarged ascending aorta (diameter 4.2cm) and mildly enlarged aortic arch (diameter 3.3cm). 10) No prior Echo available for comparison. Additional Diagnostics 07/22/2016 04:45 pH ____7.404 - 7.350 7.450 pCO2 ___35.4__ -mmHg 35.0 45.0 pO2 101 -mmHg 69.0 116 HCO3- ___21.7__ -mmol/L 22.0 26.0 Assessment & Plan 86-year-old gentleman with past medical history of A. fib (on warfarin), CHF, hypertension, chronic kidney disease, pneumonia and probable COPD direct admit to CCU from [facility] emergency Department secondary to shortness of breath and acute blood loss anemia. Hospital day 2. 1. CHF exacerbation with systolic dysfunction. Present on admission. Ongoing. - Most likely secondary to noncompliance with home medications - Hold home metoprolol, enalapril, amlodipine secondary to hemodynamic state - Nephrology following, appreciate their recommendations - Lasix 80 mg IV every 12 - CXR showed cardiomegaly - ECHO showed EF 45-50% with severe septal hypokinesis. Market biatrial enlargement. Moderate to severe MR. Moderate to severe tricuspid regurgitation. Pulmonary hypertension. - Continue to monitor 2. Acute hypoxic respiratory failure. Present on admission. Ongoing - Etiologies include pneumonia, obesity hypoventilation syndrome, undiagnosed COPD exacerbation - O2 saturations reportedly in the 70s at [place] [facility]. - BiPAP with FiO2 decreased to 0.4 from 0.75 with good saturation - CXR showed possible bilateral multifocal pneumonia - ABGs show pH 7.4, PCO2 35, PO2 of 101, HCO3 21.7 - DuoNeb's every 4 - Prednisone 40 mg daily 3. Suspicion for pneumonia. Present on admission. Ongoing - Etiologies include community acquired pneumonia as well as aspiration pneumonia - Appropriate cultures and serologies negative to date - WBC ended down to 10 from 11 - Pro calcitonin trending up 1.47 from 1.16 - Patient received vancomycin and gentamicin in ED - Stop vancomycin secondary to negative MRSA screen - Start meropenem, 2/2 good coverage for both CAP and aspiration pneumonia 4. Acute blood loss anemia. Present on admission. Improving - Source most likely GI, possible right flank intra-abdominal secondary to GI left 3 weeks prior - INR trended down 2.61 from 8.1 - 3 units PRBCs received in total - Hemoglobin 8.4 - Hold warfarin, pharmacy to dose - 10 mg Vitamin K given with the fact - Ultrasound right flank no free fluid - CT held secondary to #5 - Stool guaiacs pending 5. Chronic kidney disease. Present on admission. Ongoing - Per interview patient "on the road to dialysis" - Creatinine 4.03 GFR 15 - Nephrology consult, we appreciate their recommendations - Lasix as in #1 - Bicarbonate tablets per nephrology 6. Morbid obesity. Present on admission. Ongoing - BMI 42.9 - Encourage weight loss 7. Drug dependence. Present on admission. Ongoing - Patient on oxycodone 10/325 twice a day secondary to chronic back pain - Continue to monitor 8. Hyperlipidemia. Present on admission. Ongoing - Lipid panel within normal limits - Continue home pravastatin 9. Depression. Present on admission. Ongoing - Continue home venlafaxine - 1 dose Aricept given her nephrology 10. Hyperglycemia. Present on admission. Ongoing - A1c 6.0 - Low-dose correctional scale 11. A. fib. Present on admission. Ongoing - Pharmacy to dose warfarin DVT prophylaxis: SCDs, anticoagulation held secondary to supratherapeutic INR and anemia. Disposition: Patient will remain inpatient until at least early next week as we achieve a euvolemic state with diuresis. Patient Status: Patient was admitted under inpatient status with expected length of stay greater than two midnights due to severity of presenting symptoms , risk of adverse event, and complexity of treatment plan. CODE STATUS as of now. Patient would like everything except intubation. Pain Evaluation: Adequate Pain Control GI Prophylaxis: H2 kacey VTE Prophylaxis: Theraputic Anticoag with Warfarin, SCDs VTE Mechanical Devices: Intermittant Pneumatic CD Resuscitation Status: Limited Interventions Limited Interventions: Compressions, Cardioversion/Defibrillation, BiPAP, Medications and IV Fluid Attending Statement The patient was seen and examined together with Dr. Hahn on 07/22/2016 and I agree with the history, exam and plan as outlined in the note above. . MATTHEW HAHN DO Jul 22, 2016 16:57 Dayday Leyva MD Jul 22, 2016 18:43
[2016-07-22 18:54] LABS: Magnesium 2.4 mg/dL (1.6-2.6)
[2016-07-22] MEDS ORDERED: Vancomycin Serum Trough XX ONE (20:30)
[2016-07-23] VITALS (16 sets, daily range): BP systolic 104–135; BP diastolic 56–76; PULSE 80–99; RESP 14–26; O2SAT 93–100
[2016-07-23 04:08] LABS: BASOPHILS % (AUTO) 0 % (0-3); EOSINOPHILS % (AUTO) 0.5 % (0-5); MONOCYTES % (AUTO) 5.4 % (4-12); Mean Corpuscular Hemoglobin 27.5 pg (27.0-35.0); Mean Corpuscular Volume 87.4 fL (81-100); NEUTROPHILS % (AUTO) 90.1 % (40-74); Platelet Count 258 bil/L (150-400)
[2016-07-23 04:20] LABS: INR 1.36 ratio
[2016-07-23 04:41] LABS: Magnesium 2.5 mg/dL (1.6-2.6); Phosphorus 5.5 mg/dL (2.5-4.9)
--- NOTE | 2016-07-23 05:51 | NUR ---
Respiratory Pt sleepy but easily arousable. Oriented x3 but forgetful at times. He is able to answer questions appropriately. Telemetry AFib with hr in 80s with occasional pvcs. No c/o pain. 02sat in high 90s with Bipap at 40% Fio2. Pt tolerated meds with applesauce. Hickey patent with noted 450 cc this evening.
--- NOTE | 2016-07-23 07:19 | DRSVH ---
PROCEDURE: X-RAY CHEST ONE VIEW, PORTABLE ([id number]) INDICATIONS: Pneumonia TECHNIQUE: One view of the chest was acquired. COMPARISON: [facility], CR, XR CHEST 1VW (PORTABLE), 07/22/2016, 3:46. FINDINGS: Surgical changes and devices: None. Lungs and pleura: No pleural effusions or pneumothorax. Markedly improved aeration of the right lung diffusely since yesterday. No definite new focal consolidation. Mediastinum: Mediastinal contours appear normal. Heart size is stable. Bones and chest wall: No suspicious bony lesions. Overlying soft tissues appear unremarkable. IMPRESSION: Improved aeration of the right lung since yesterday suggesting resolving multifocal aspiration, altho ugh superimposed pneumonia cannot be excluded. Recommend clinical correlation Dictated by: Horace Pantoja M.D. on 07/23/2016 at 7:16 Approved by: Horace Pantoja M.D. on 07/23/2016 at 7:17
[2016-07-23] MEDS ORDERED: 0.9% Sodium Chloride 250 ML ONE ×2 (07:29→20:54)
[2016-07-23] MEDS: Insulin LISPRO 300 Unit/3 mL Inj SUBQ SCH ×4 (08:00→20:36)
[2016-07-23] MEDS: Albuterol-Ipratropium 3 mL Inhalation Solution NEB SCH ×3 (08:18→16:43)
--- NOTE | 2016-07-23 10:40 | NUR ---
Evaluation completed. Please go to "Notes" then click on "Assessments and Notes" (bottom left corner of screen). Then select appropriate discipline tab on top of screen.
--- NOTE | 2016-07-23 11:49 | PCM.PNNEPH ---
Subjective Date of Service Jul 23, 2016 Subjective The patient continues to have some improvement in his respiratory and mental status. He remains on BiPAP and offers no new complaints. Her pressure is good and his intake and output last 24 hours was 1808 in and 2200 in urine output. This morning his sodium is 140, potassium 3.7, chloride of 103, bicarbonate 19, BUN and creatinine were 67 and 3.99 respectively. His phosphorus as morning is 5.5. Exam Vital Signs Vital Sign - Last Date Time Temp Pulse Resp B/P Pulse Ox O2 Delivery O2 Flow Rate FiO2 07/23/16 04:26 82 22 123/65 100 40 07/23/16 04:00 CPAP/BIPAP 07/23/16 04:00 36.7 Intake and Output 07/22/16 07/22/16 07/23/16 Cumulative From/Thru 15:00 23:00 07:00 07/21/16 14:31 - 07/23/16 06:00 Intake Total 245 ml 70 ml 2145 ml Output Total 800 ml 350 ml 450 ml 2746 ml Balance -800 ml -105 ml -380 ml -601 ml Intake Oral 60 ml 60 ml IV Total 185 ml 70 ml 1518 ml Packed Cells 567 ml Output Urine Total 800 ml 350 ml 450 ml 2746 ml # Bowel Movements 0 0 0 Exam HEENT examination is remarkable for pale sclera. Neck is supple without adenopathy thyromegaly or venous distention. Lungs showed a few bibasilar rales. Otherwise clear. Heart sounds were present and regular though distant. Abdomen was distended and there was no tenderness rebound guarding masses or hepatosplenomegaly. Extremities showed much less edema. Lab and Diagnostics Result Diagram: 07/23/16 0330 07/23/16 0330 X-Rays, CTs and MRIs . X-RAY CHEST ONE VIEW, PORTABLE IMPRESSION: 1. Continued extensive bilateral airspace disease (right significantly greater than left), suspicious for multifocal pneumonia. The need for better characterization of this airspace disease utilizing CT of the chest may be determined clinically. 2. Cardiomegaly with mild vascular congestion. Dictated by: Leoncio Langston M.D. on 07/21/2016 at 14:52 US RENAL SONOGRAM IMPRESSION: Findings suggesting acute cholecystitis as above. Please correlate clinically and with LFTs. Findings were provided to the patient's clinical team (Nathalie Linares RN), by the lap polisher, at the time of the examination 1855 hours on . 38 cc postvoid residual. Bilateral renal cortical thinning/atrophy and multiple bilateral renal cysts. No hydronephrosis. Dictated by: Horace Pantoja M.D. on 07/21/2016 at 19:38 X-RAY CHEST ONE VIEW, PORTABLE IMPRESSION: Worsening areas of pneumonia by laterally in the lungs. Probable small pleural effusions as well. Dictated by: Aaron Rendon M.D. on 07/22/2016 at 11:42 Cardiac Echo Impressions Echocardiogram Report Interpretation Summary 1) Mild concentric left ventricular hypertrophy with normal left ventricular size and mildly to moderately reduced systolic function (EF 45-50%). 2) Severe septal hypokinesis and apical inferior hypokinesis present. 3) Normal right ventricular size with mildly to moderately reduced systolic function. 4) Marked biatrial enlargement. 5) Moderate to severe mitral regurgitation that is directed posteriorly. Mitral leaflet do not coapt well. 6) Moderate to severe tricuspid regurgitation. 7) Pulmonary hypertension present, estimated systolic pulmonary pressure of 50mmHg. 8) Dilated IVC suggested of elevated right sided filling pressures. 9) Mildly to moderately enlarged ascending aorta (diameter 4.2cm) and mildly enlarged aortic arch (diameter 3.3cm). 10) No prior Echo available for comparison. 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 Davdi Parikh DO Jul 23, 2016 11:49
[2016-07-23] MEDS: predniSONE 20 mg Tablet PO SCH (12:03)
[2016-07-23] MEDS: Furosemide 10 mg/mL 10 mL Inj IVPUSH SCH ×2 (12:04→21:02)
[2016-07-23] MEDS: Venlafaxine XR 75 mg ER24 Capsule PO SCH (12:04)
[2016-07-23] MEDS: Meropenem Inj 1,000 MG in 0.9% Sodium Chloride 100 ML IV SCH ×2 (12:04→23:36)
--- NOTE | 2016-07-23 14:25 | CONS ---
[address] [address] CONSULTATION REPORT PATIENT: ROLA GILLESPIE : 1930 MR#: [id number] ADMIT: 07/21/2016 JOB ID: [id number] DATE OF SERVICE: 07/23/2016 VENTILATOR MANAGEMENT NOTE: REQUESTING PHYSICIAN: Dayday Leyva MD. REASON FOR CONSULTATION: Noninvasive positive pressure ventilator management. HISTORY OF PRESENT ILLNESS: The patient is an 86-year-old, male with history of hypertension, CHF, nephrolithiasis, atrial fibrillation, who presented to emergency department at [facility] due to three or four days of worsening dyspnea. He had had some difficulty with his medications and they were discontinued unilaterally. The medications were restarted when he had increasing shortness of breath and his discovered he had stopped taking his medications one week previously. There was no cough other than his usual chronic cough associated with drinking liquids. EXPOSURE HISTORY: The patient was in the [place]. 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 Pets: Cats and dogs. Travel: [place] three years ago. Has been in the [facility] region of the country. ALLERGIES: None known. MEDICATIONS: On admission, include amlodipine, metoprolol, venlafaxine, VESIcare, enalapril, allopurinol, warfarin, calcitriol, pravastatin, oxycodone, atenolol eyedrops, furosemide, gabapentin, omeprazole, iron, Coenzyme Q, vitamin D3, and multivitamins. PAST MEDICAL HISTORY: 1. Atrial fibrillation. 2. Congestive heart failure. 3. Hypertension. 4. Nephrolithiasis. 5. Pneumonia. 6. Possible COPD. SMOKING HISTORY: One pack a day, quitting 50 years ago. OBJECTIVE: Temperature 36.7. Pulse mid 80s. Respiratory rate 16-22, blood pressure 131/76, O2 sat on FiO2 40%, noninvasive positive pressure ventilator set at 12/8 with a rate of 16 shows an O2 saturation in the high to mid 90s. General appearance: A well-developed, well-nourished, male, sitting in a bedside chair with the chair in a reclining position though head of the chair was elevated to about 45 degrees. BiPAP mask present. States it is somewhat uncomfortable. Eyes: Conjunctivae are pink and moist. Nose and throat could not be examined. Chest shows fair breath sounds bilaterally. There are crackles throughout the right lung. Maybe a few on the left. No use of accessory muscles. With BiPAP at 12/8, FiO2 40%, O2 sat running mid to high 90s. Tidal volume is about 600. Peak pressures are in 20s. is mid 30s to about 60. Heart irregular rhythm. Heart tones seem normal. Abdomen soft. Bowel tones present. Extremities: Warm. SCD on the lower extremities. Possibly some pretibial swelling bilaterally. Chest x-ray shows a mild infiltrate scattered throughout the left lung. There is moderate opacification, right lung, though markedly improved over the past 24 hours. LABORATORY DATA: Shows a white count of 11,700 with 90 polymorphonuclears, 3 lymphs, 5 monos. Hemoglobin 8.3, relatively stable. Platelet count 258,000. Sodium 140, potassium 3.7, chloride 103, CO2 is 19. BUN 67, slowly increasing. Creatinine 3.99 and stable. Calcium 8.2 with an albumin of 2.5. Phosphorus mildly elevated at 5.5, magnesium normal at 2.5. Total bilirubin normal at 0.5. AST normal at 43. ALT mildly elevated at 74. Alkaline phos normal at 65. INR has dropped from a peak of 8.1 on admission two days ago to 1.36. Legionella pneumophila antigen is negative. ASSESSMENT: Bi-level positive airway pressure noninvasive positive pressure ventilation. Doing reasonably well. Tidal volume is fine and probably can be decreased slightly. Can drop the IPAP from 12 to 10 and therefore we can drop the EPAP from 8 to 6 as his oxygenation seems to be acceptable. Will see how we does. Given the rate of his improvement we may even be able to get him off the BiPAP. Currently, he is oxygenating well. Ventilation is good. Blood gases do not show hypercapnia with his major problem being hypoxemia. Whether this had to do with the high INR and alveolar bleeding ,fluid overload with his renal medications and his unilateral discontinuation of the medications or an element of pulmonary infection is unclear. The rapid improvement in x-ray argues for at least a moderate degree of fluid overload. PLAN: 1. Decrease current settings to 10/6. 2. Later this afternoon might try OxyMask with goal being O2 sats in the mid 90s. Thank you so much, Dr. Leyva, for asking me to see this most pleasant individual. Will follow his respiratory status closely along with you.
--- NOTE | 2016-07-23 14:39 | NUR ---
Social Work Note: Initial Assessment Data& Assessment: EMR reviewed. SW met with pt and pt at bedside to discuss discharge planning, SW role explained. Phan Sanchez is 86 year old male admitted on 07/21/2016 for respiratory failure, CRD, severe anemia. Pt has [employer] insurance coverage and sees David Nascimento MD for primary care. Pt lives in [place] with his spouse and is independent with all ADL's. Pt does not drive due to dementia dx. Pt uses a cane at baseline for ambulation. Pt does have a 4WW that he has available if he feels like he needs to use it. Pt has had CPAP machine in the past, but was noncompliant and threw the machine away years ago. Pt currently requiring BIBPAP. Pt has had [facility] RN and PT hx. Pt does not have SNF hx. PT is recommending SNF at this time. Pt family provided with SNF list for preferences. Pt family is hoping pt will be able to go home with [facility] again, but we will see how pt progresses medically and physically with PT in the next few days. Pt does not have LTC insurance or VA benefits. Pt has DPOA paperwork completed, pt family will bring in a copy for pt chart. SW phone number provided on pt whiteboard. SW to continue to follow for PT, respiratory and discharge planning needs. Pt and pt family denies any other needs at this time. Plan: Anticipated discharge to SNF vs. Home with [facility] when medically ready. SNF list provided for preferences. SW to continue to follow for PT, respiratory and discharge planning needs. Pt and pt family denies any other needs at this time. RANDI Monaco Addendum: 07/23/16 at 1449 by ALEXEY BRADSHAW Amended: Links added.
--- NOTE | 2016-07-23 14:49 | NUR ---
PRETTY Signed RANDI Monaco
[2016-07-23 18:19] LABS: Magnesium 2.6 mg/dL (1.6-2.6)
[2016-07-23] MEDS: LATANOPROST 0.005% BOTH_EYES SCH (20:35)
[2016-07-23] MEDS ORDERED: [UNRECOGNIZED DRUG - OTHER] BOTH_EYES SCH (21:00)
--- NOTE | 2016-07-23 21:06 | PCM.PNMED ---
Subjective Date of Service Jul 23, 2016 Subjective Patient is an 86-year-old gentleman with hypertension, congestive heart failure , nephrolithiasis and atrial fibrillation (on anticoagulation) admitted for CHF exacerbation and shortness of breath No overnight events. The patient was on BiPAP overnight and tolerating. Patient reports his breathing is improving. He denies chest pain, nausea, emesis, lightheadedness, dizziness. No bowel movement yet. Exam Vital Signs Vital Sign - Last Date Time Temp Pulse Resp B/P Pulse Ox O2 Delivery O2 Flow Rate FiO2 07/23/16 20:26 88 18 118/62 98 BiPAP 35 07/23/16 18:00 36.8 07/23/16 12:30 3.00 Intake and Output 07/22/16 07/22/16 07/23/16 Cumulative From/Thru 15:00 23:00 07:00 07/21/16 14:31 - 07/23/16 06:00 Intake Total 245 ml 70 ml 2145 ml Output Total 800 ml 350 ml 450 ml 2746 ml Balance -800 ml -105 ml -380 ml -601 ml Intake Oral 60 ml 60 ml IV Total 185 ml 70 ml 1518 ml Packed Cells 567 ml Output Urine Total 800 ml 350 ml 450 ml 2746 ml # Bowel Movements 0 0 0 Exam General: Obese male supine in bed, awake and alert and appropriately interactive , in no acute distress with BiPAP in place HEENT: Normocephalic, atraumatic. Pale sclerae, moist conjunctivae, and no lid lag. Cardiovascular: Irregularly irregular rhythm, no murmurs rubs or gallops appreciated. Pulmonary: Clear to auscultation bilaterally upper anterior lobes though difficult to appreciate secondary to BiPAP. No wheezes crackles or rhonchi appreciated. Normal respiratory effort with no use of accessory muscles Abdomen: Soft. No tenderness on palpation Extremities: No significant edema appreciated in lower extremities, SCDs in place. No cyanosis appreciated extremities warm to palpation. Skin: Normal temperature, turgor, and texture; no rash, ulcers, or subcutaneous nodules appreciated. Neurological: Cranial nerves grossly intact. Patient has known gait impairment, requiring the use of cane while walking. Psychiatric: Normal mood and affect. Alert and oriented to person, place, and time. IVs and Medications Medications Reviewed: Medications were reviewed in detail Lab and Diagnostics Result Diagram: 4/9/17 1728 4/9/17 1728 X-Rays, CTs and MRIs . X-RAY CHEST ONE VIEW, PORTABLE IMPRESSION: 1. Continued extensive bilateral airspace disease (right significantly greater than left), suspicious for multifocal pneumonia. The need for better characterization of this airspace disease utilizing CT of the chest may be determined clinically. 2. Cardiomegaly with mild vascular congestion. Dictated by: Leoncio Langston M.D. on 07/21/2016 at 14:52 US RENAL SONOGRAM IMPRESSION: Findings suggesting acute cholecystitis as above. Please correlate clinically and with LFTs. Findings were provided to the patient's clinical team (Nathalie Linares RN), by the electrical contractor, at the time of the examination 1855 hours on . 38 cc postvoid residual. Bilateral renal cortical thinning/atrophy and multiple bilateral renal cysts. No hydronephrosis. Dictated by: Horace Pantoja M.D. on 07/21/2016 at 19:38 X-RAY CHEST ONE VIEW, PORTABLE IMPRESSION: Worsening areas of pneumonia by laterally in the lungs. Probable small pleural effusions as well. Dictated by: Aaron Rendon M.D. on 07/22/2016 at 11:42 Cardiac Echo Impressions Echocardiogram Report Interpretation Summary 1) Mild concentric left ventricular hypertrophy with normal left ventricular size and mildly to moderately reduced systolic function (EF 45-50%). 2) Severe septal hypokinesis and apical inferior hypokinesis present. 3) Normal right ventricular size with mildly to moderately reduced systolic function. 4) Marked biatrial enlargement. 5) Moderate to severe mitral regurgitation that is directed posteriorly. Mitral leaflet do not coapt well. 6) Moderate to severe tricuspid regurgitation. 7) Pulmonary hypertension present, estimated systolic pulmonary pressure of 50mmHg. 8) Dilated IVC suggested of elevated right sided filling pressures. 9) Mildly to moderately enlarged ascending aorta (diameter 4.2cm) and mildly enlarged aortic arch (diameter 3.3cm). 10) No prior Echo available for comparison. Additional Diagnostics 07/22/2016 04:45 pH ____7.404 - 7.350 7.450 pCO2 ___35.4__ -mmHg 35.0 45.0 pO2 101 -mmHg 69.0 116 HCO3- ___21.7__ -mmol/L 22.0 26.0 Assessment & Plan 86-year-old gentleman with past medical history of A. fib (on warfarin), CHF, hypertension, chronic kidney disease, pneumonia and probable COPD direct admit to CCU from [facility] emergency Department secondary to shortness of breath and acute blood loss anemia. Hospital day 3. 1. CHF exacerbation with systolic dysfunction. Present on admission. Ongoing. - Most likely secondary to noncompliance with home medications - Hold home metoprolol, enalapril, amlodipine secondary to hemodynamic state - Nephrology following, appreciate their recommendations - Lasix 80 mg IV every 12 - CXR showed cardiomegaly - ECHO showed EF 45-50% with severe septal hypokinesis. Marked biatrial enlargement. Moderate to severe MR. Moderate to severe tricuspid regurgitation. Pulmonary hypertension. - Continue to monitor 2. Acute hypoxic respiratory failure. Present on admission. Ongoing - Etiologies include pneumonia, obesity hypoventilation syndrome, undiagnosed COPD exacerbation - O2 saturations reportedly in the 70s at [facility]. - Continue BiPAP - CXR showed possible bilateral multifocal pneumonia - ABGs show pH 7.4, PCO2 35, PO2 of 101, HCO3 21.7 - DuoNeb's every 4H - Prednisone 40 mg daily 3. Suspicion for pneumonia. Present on admission. Ongoing - Etiologies include community acquired pneumonia as well as aspiration pneumonia - Appropriate cultures and serologies negative to date - Procalcitonin continuing to trend up - Stop vancomycin secondary to negative MRSA screen - Continue meropenem, 2/2 good coverage for both CAP and aspiration pneumonia 4. Acute blood loss anemia. Present on admission. Improving - Source most likely GI, possible right flank intra-abdominal secondary to GLF 3 weeks prior - s/p 10mg Vitamin K on admit - INR normalized - 3 units PRBCs received in total - Warfarin pharmacy to dose - Ultrasound right flank no free fluid - CT held secondary to #5 - Stool guaiacs pending 5. Chronic kidney disease. Present on admission. Ongoing - Per interview patient "on the road to dialysis" - Nephrology following, we appreciate their recommendations - Lasix as in #1 - Renvela per nephrology - Bicarbonate tablets per nephrology 6. Morbid obesity. Present on admission. Ongoing - BMI 42.9 - Encourage weight loss 7. Drug dependence. Present on admission. Ongoing - Patient on oxycodone 10/325 twice a day secondary to chronic back pain - Continue to monitor 8. Hyperlipidemia, chronic. Present on admission. Ongoing - Lipid panel within normal limits - Continue home pravastatin 9. Depression, chronic. Present on admission. Ongoing - Continue home venlafaxine - 1 dose Aricept given her nephrology 10. Hyperglycemia. Present on admission. Ongoing - A1c 6.0 - Low-dose correctional scale 11. Atrial fibrillation, chronic. Present on admission. Ongoing - Pharmacy to dose warfarin DVT prophylaxis: SCDs, anticoagulation held secondary to supratherapeutic INR and anemia. Disposition: Patient will remain inpatient until at least early next week as we achieve a euvolemic state with diuresis. Pain Evaluation: Adequate Pain Control GI Prophylaxis: H2 kacey VTE Prophylaxis: Theraputic Anticoag with Warfarin, SCDs VTE Mechanical Devices: Intermittant Pneumatic CD Resuscitation Status: Limited Interventions Limited Interventions: Compressions, Cardioversion/Defibrillation, BiPAP, Medications and IV Fluid Attending Statement The patient was seen and examined together with Dr. Hidalgo on 07/23/2016 and I agree with the history, exam and plan as outlined in the note above. . Nolberto Hidalgo DO Jul 23, 2016 21:06 Dayday Leyva MD Jul 24, 2016 10:48
[2016-07-24] VITALS (13 sets, daily range): BP systolic 107–143; BP diastolic 56–81; PULSE 80–90; RESP 14–23; O2SAT 93–100
[2016-07-24 04:24] LABS: BASOPHILS % (AUTO) 0.1 % (0-3); EOSINOPHILS % (AUTO) 0.8 % (0-5); MONOCYTES % (AUTO) 5.6 % (4-12); Mean Corpuscular Hemoglobin 27.7 pg (27.0-35.0); Mean Corpuscular Volume 87.2 fL (81-100); NEUTROPHILS % (AUTO) 88.7 % (40-74); Platelet Count 270 bil/L (150-400)
[2016-07-24 04:32] LABS: INR 1.56 ratio
--- NOTE | 2016-07-24 06:50 | NUR ---
oxygenation Pt tolerated 5-8 mins off bipap on RA to brush teeth, wash face and take meds. Pt tolerated this well. Sats remained in low 90's. While asleep on bipap pt sating 99-100%. FiO2 decreased to 25%, sats remain in high 90's.
--- NOTE | 2016-07-24 08:21 | NUR ---
NUTRITION FOLLOW UP: ASSESS: 86 YO male admitted for CHF exacerbation, acute respiratory failure requiring BiPAP and possible pneumonia. Diet advanced to dysphagia mechanical. PMHx: A-fib, CHF, HTN, nephrolithiasis, pneumonia, possible COPD. DIET: Dysphagia mechanical. PO intake 100% X 1 meal. LABS: BUN 69, Cr 4.15, Ca 8.1, ALT 58, Alb 2.5 MEDICATIONS: Lasix, Prednisone, Coumadin, Insulin. Perla: 1 BM 07/23. SKIN: No issues reported. ANTHROPOMETRICS: Current Wt: 137.5 kg, BMI: 43.5 kg/m2, IBW: 75.45 kg (182% IBW) ESTIMATED NEEDS (CLASS III OBESITY, STAGE 5 RENAL DISEASE): Calories: 3762-0948 kcal (25-30 kcal/kg IBW) Protein: 75-91 g protein (1.0-1.2 g/kg IBW) Fluid: Approx. 3440 mL (25 mL/kg BW) NUTRITION DIAGNOSIS: 1) Chewing/swallowing difficulties related to requirement for BiPAP, as evidenced by NPO status per ST order, inadequate oral intake.-IMPROVING. INTERVENTION: 1) Diet advance per speech therapy. MONITOR/EVALUATE: Diet advance/tolerance, PO intake, labs, GI/nutrition status. Follow per moderate nutrition risk guidelines.
[2016-07-24] MEDS: Albuterol-Ipratropium 3 mL Inhalation Solution NEB SCH ×4 (08:52→20:02)
[2016-07-24] MEDS: Furosemide 10 mg/mL 10 mL Inj IVPUSH SCH (09:26)
[2016-07-24] MEDS: Venlafaxine XR 75 mg ER24 Capsule PO SCH (09:26)
[2016-07-24] MEDS: predniSONE 20 mg Tablet PO SCH (09:26)
[2016-07-24] MEDS: Insulin LISPRO 300 Unit/3 mL Inj SUBQ SCH ×4 (09:36→22:18)
--- NOTE | 2016-07-24 12:02 | PCM.PHAPRO ---
Progress Date of Service: Jul 24, 2016 Warfarin per Rx Indication: A-Fib Home Dose 5mg ///Fr, 2.5mg Arce/We/Sa Date -Jul 22-Jul 23-Jul 24-Jul INR 8.1 2.6 1.36 1.56 INR change ~ -5.5 -1.24 0.2 Warf Dose Hold HELD 2.5 2.5 Inr continuing to appropriately trend up after being held and home dose restarting yesterday. Will give another OT dose tonight of 2.5 mg instead of 5 mg which is what patient usually takes but may have contributed to his supratherapeutic INR he came in with Pharmacy to continue to monitor and dose warfarin daily. Thank you, Lily Ley PharmD Jul 24, 2016 12:02
--- NOTE | 2016-07-24 12:30 | PCM.CONPHA ---
Assessment/Plan Assessment/Plan ANTICOAGULATION MANAGEMENT BY PHARMACY -INDICATION: AFIB -HOME DOSE: ? -CONCURRENT ANTICOAGULATION: ENOXAPARIN 40 MG DAILY -CRCL: 134.7 ML/MIN -COAG TRENDS: Date -Jul INR 1.0 INR change ~ Warf Dose 5 MG -[id number] SCORE: 2 PLAN: Patient was never restarted on home dose of Warfarin since admission on 07/19/16. Possibly now taking po meds so will restart tonight. Unknown what home dose is due to fact patient is severely demented, no med list was received by the longterm, and external med history has him picking up 3 mg, 2.5 mg and 4 mg prescriptions all in the same week. Will give a OT dose tonight of 5MG to at least get back to therapeutic and continue to dose based on daily INRs. INR s ordered X5 Pharmacy appreciates consult and will continue to monitor. THANKS! Lily Ley PharmD Jul 24, 2016 12:30
[2016-07-24] MEDS: Meropenem Inj 1,000 MG in 0.9% Sodium Chloride 100 ML IV SCH (12:34)
[2016-07-24] MEDS: [UNRECOGNIZED DRUG - OTHER] BOTH_EYES SCH (12:35)
--- NOTE | 2016-07-24 13:19 | PCM.PNMED ---
Subjective Date of Service Jul 24, 2016 Subjective Patient is an 86-year-old gentleman with hypertension, congestive heart failure , nephrolithiasis and atrial fibrillation (on anticoagulation) admitted for CHF exacerbation and shortness of breath Overnight: Pt was taken off of BiPAP for 5-10 min and maintained adequate O2 saturations. His FiO2 was titrated down and he maintained saturations in the high 90's. He did have a BM overnight. Today: Pt saturating in mid/high 90's on nasal cannula. States that he feels very well overall. Denies SOB, CP headache, fever/chills. States that he no longer has any right flank pain. Exam Vital Signs Vital Sign - Last Date Time Temp Pulse Resp B/P Pulse Ox O2 Delivery O2 Flow Rate FiO2 07/24/16 10:09 83 07/24/16 09:08 36.4 21 134/64 93 Nasal Cannula 5.00 07/24/16 08:53 25 Intake and Output 07/23/16 07/23/16 07/24/16 Cumulative From/Thru 14:59 22:59 06:59 07/21/16 14:31 - 07/24/16 06:08 Intake Total 547 ml 143 ml 2835 ml Output Total 650 ml 700 ml 4096 ml Balance -103 ml -557 ml -1261 ml Intake Oral 380 ml 440 ml IV Total 167 ml 143 ml 1828 ml Packed Cells 567 ml Output Urine Total 650 ml 700 ml 4096 ml # Bowel Movements 1 1 Exam General: Obese male supine in bed, awake and alert and appropriately interactive with nasal cannula in place. HEENT: Normocephalic, atraumatic. Anicteric sclerae, moist conjunctivae, and no lid lag. Cardiovascular: Irregularly irregular rhythm, no murmurs rubs or gallops appreciated. Pulmonary: Clear to auscultation bilaterally upper anterior lobes. No wheezes crackles or rhonchi appreciated. Normal respiratory effort with no use of accessory muscles Abdomen: Soft. No tenderness on palpation x 4 quadrants. Extremities: Bilateral lower extremity edema. SCD's in place. No cyanosis appreciated extremities warm to palpation, left ankle tender to palpation Skin: Normal temperature, turgor, and texture; no rash, ulcers, or subcutaneous nodules appreciated. Neurological: Cranial nerves grossly intact. Patient has known gait impairment, requiring the use of cane while walking. Psychiatric: Normal mood and affect. Alert and oriented to person, place, and time. IVs and Medications Medications Reviewed: Medications were reviewed in detail Lab and Diagnostics Result Diagram: 07/24/1633907/24/16 034 X-Rays, CTs and MRIs . X-RAY CHEST ONE VIEW, PORTABLE IMPRESSION: 1. Continued extensive bilateral airspace disease (right significantly greater than left), suspicious for multifocal pneumonia. The need for better characterization of this airspace disease utilizing CT of the chest may be determined clinically. 2. Cardiomegaly with mild vascular congestion. Dictated by: Leoncio Langston M.D. on 07/21/2016 at 14:52 US RENAL SONOGRAM IMPRESSION: Findings suggesting acute cholecystitis as above. Please correlate clinically and with LFTs. Findings were provided to the patient's clinical team (Nathalie Linares RN), by the continuous yarn dyeing machine operator, at the time of the examination 1855 hours on . 38 cc postvoid residual. Bilateral renal cortical thinning/atrophy and multiple bilateral renal cysts. No hydronephrosis. Dictated by: Horace Pantoja M.D. on 07/21/2016 at 19:38 X-RAY CHEST ONE VIEW, PORTABLE IMPRESSION: Worsening areas of pneumonia by laterally in the lungs. Probable small pleural effusions as well. Dictated by: Aaron Rendon M.D. on 07/22/2016 at 11:42 X-RAY CHEST ONE VIEW, PORTABLE IMPRESSION: Improved aeration of the right lung since yesterday suggesting resolving multifocal aspiration, although superimposed pneumonia cannot be excluded. Recommend clinical correlation Dictated by: Horace Pantoja M.D. on 07/23/2016 at 7:16 Cardiac Echo Impressions Echocardiogram Report Interpretation Summary 1) Mild concentric left ventricular hypertrophy with normal left ventricular size and mildly to moderately reduced systolic function (EF 45-50%). 2) Severe septal hypokinesis and apical inferior hypokinesis present. 3) Normal right ventricular size with mildly to moderately reduced systolic function. 4) Marked biatrial enlargement. 5) Moderate to severe mitral regurgitation that is directed posteriorly. Mitral leaflet do not coapt well. 6) Moderate to severe tricuspid regurgitation. 7) Pulmonary hypertension present, estimated systolic pulmonary pressure of 50mmHg. 8) Dilated IVC suggested of elevated right sided filling pressures. 9) Mildly to moderately enlarged ascending aorta (diameter 4.2cm) and mildly enlarged aortic arch (diameter 3.3cm). 10) No prior Echo available for comparison. Additional Diagnostics 07/22/2016 04:45 pH ____7.404 - 7.350 7.450 pCO2 ___35.4__ -mmHg 35.0 45.0 pO2 101 -mmHg 69.0 116 HCO3- ___21.7__ -mmol/L 22.0 26.0 Assessment & Plan 86-year-old gentleman with past medical history of A. fib (on warfarin), CHF, hypertension, chronic kidney disease, pneumonia and probable COPD direct admit to CCU from [facility] emergency Department secondary to shortness of breath and acute blood loss anemia. Hospital day 4. 1. CHF exacerbation with systolic dysfunction. Present on admission. Ongoing. - Most likely secondary to noncompliance with home medications - Continue home metoprolol - Hold home Enalapril, amlodipine secondary to hemodynamic state - Nephrology following, appreciate their recommendations - Per nephrology start Torsemide 40mg am, 20mg pm - CXR showed cardiomegaly - ECHO showed EF 45-50% with severe septal hypokinesis. Marked biatrial enlargement. Moderate to severe MR. Moderate to severe tricuspid regurgitation. Pulmonary hypertension. - Continue to monitor 2. Acute hypoxic respiratory failure. Present on admission. Ongoing - Etiologies include pneumonia, obesity hypoventilation syndrome, undiagnosed COPD exacerbation ,CHF - weaned off BiPAP, tolerating NC with good O2 saturation - CXR showed possible bilateral multifocal pneumonia - DuoNeb's every 4H - Prednisone 40 mg daily 3. Suspicion for pneumonia. Present on admission. Ongoing - Etiologies include community acquired pneumonia as well as aspiration pneumonia - Appropriate cultures and serologies negative to date - Procalcitonin continuing to trend up - Stop vancomycin secondary to negative MRSA screen - Continue meropenem, 2/2 good coverage for both CAP and aspiration pneumonia 4. Acute blood loss anemia. Present on admission. Improving - Source most likely GI - INR supratherapudic on admit - s/p 10mg Vitamin K - INR normalized - 3 units PRBCs received in total - Warfarin, pharmacy to dose - Ultrasound - no free fluid - CT held secondary to #5 - Stool guaiacs positive 5. Chronic kidney disease. Present on admission. Ongoing - Per interview patient "on the road to dialysis" - Nephrology following, we appreciate their recommendations - Diuretics as in # 1 - Renvela per nephrology - Bicarbonate 1,300 BID per nephrology 6. Morbid obesity. Present on admission. Ongoing - BMI 42.9 - Encourage weight loss 7. Drug dependence. Present on admission. Ongoing - Patient on oxycodone 10/325 twice a day secondary to chronic back pain - Continue to monitor 8. Hyperlipidemia, chronic. Present on admission. Ongoing - Lipid panel within normal limits - Continue home pravastatin 9. Depression, chronic. Present on admission. Ongoing - Continue home venlafaxine 10. Hyperglycemia. Present on admission. Ongoing - A1c 6.0 - Low-dose correctional scale 11. Atrial fibrillation, chronic. Present on admission. Ongoing - Pharmacy to dose warfarin DVT prophylaxis: SCDs, anticoagulation held secondary to supratherapeutic INR and anemia. Disposition: Pt has improved clinically within the last 2 days. Anticipate discharge in the next few days, possibly tomorrow depending on volume status and oxygenation requirements. GI Prophylaxis: H2 kacey VTE Prophylaxis: Theraputic Anticoag with Warfarin, SCDs VTE Mechanical Devices: Intermittant Pneumatic CD Resuscitation Status: Limited Interventions Limited Interventions: Compressions, Cardioversion/Defibrillation, BiPAP, Medications and IV Fluid Attending Statement The patient was seen and examined together with Dr. Hahn on 07/24/2016 and I agree with the history, exam and plan as outlined in the note above. MATTHEW HAHN DO Jul 24, 2016 11:30 Santiago Hoyos MD Jul 24, 2016 20:55
--- NOTE | 2016-07-24 14:19 | PROG NOTE ---
[address] [address] PROGRESS NOTE PATIENT: ROLA GILLESPIE : 1930 MR#: [id number] ADMIT: 07/21/2016 JOB ID: [id number] DATE: 07/24/2016 PROBLEMS: 1. Acute hypoxic ventilatory failure. 2. Atrial fibrillation. 3. Probable pneumonia. 4. Hypertension. 5. Congestive heart failure. 6. Possible COPD. SUBJECTIVE: Breathing much more comfortably today. Wore the BiPAP mask last night. Although he states he tolerated it fairly well, he is very anxious to get the mask removed this morning as he finds it somewhat claustrophobic and too tight. OBJECTIVE: Temperature 36.4, pulse mid 80s, respiratory rate 16-23, blood pressure 115/71, O2 sat on BiPAP is 93% to 96%. General appearance: Lying in bed in no acute distress. Wearing BiPAP. Awake, alert, appropriate. Speaking easily. Chest is relatively clear. Fairly good breath sounds. BiPAP settings are 10/6 with a respiratory rate of 16, with the patient breathing about 22. Tidal volume running 5-600. Leak less than 30. FiO2 is 0.25. Heart: Irregular rhythm. Heart tones seem normal. Abdomen soft. Bowel tones present. Extremities: Maybe 1+ pretibial edema. LABORATORY: Shows a white count of 11,300, with 88 polymorphonuclears, no bands, 4 lymphocytes. Hemoglobin stable at 9.1. Platelet count stable at 270,000. Lytes are normal. BUN stable at 69. Creatinine relatively stable at 4.15. Calcium 8.1, albumin 2.5. Total bilirubin 0.4. AST 36, ALT mildly elevated at 58. Alkaline phos normal at 63. Procalcitonin 1.15 and falling. ASSESSMENT: Hypoxemic respiratory failure. Doing well. Oxygenating reasonably well. I think we can try discontinuing the BiPAP mask and substituting an OxyMask for that, titrating his O2 sats to about 94%. He may need to wear the BiPAP at night but we can see how he does during the day and give oxygen via mask or via BiPAP accordingly. PLAN: 1. Discontinue BiPAP. 2. Start O2 by OxyMask, titrating FiO2 to achieve an O2 sat of about 94%.
--- NOTE | 2016-07-24 14:47 | PCM.PNNEPH ---
Subjective Date of Service Jul 24, 2016 Subjective The patient continues to improve. He is off the CPAP today and states that he is feeling considerably better. He has no conversational dyspnea and states that he is eating well. He denies any chest pain, shortness of breath, cough or wheezing. His blood pressures have averaged 100 and 130s systolic. The last 24 hours his intake was 617 with 1100 out and an additional 700 out in the first 8 hours. Slowly his hemoglobin is 9.1, sodium 1: 142, potassium 3.8, chloride of 104, bicarbonate 22, BUN and creatinine were 69 of 4.15 respectively. Exam Vital Signs Vital Sign - Last Date Time Temp Pulse Resp B/P Pulse Ox O2 Delivery O2 Flow Rate FiO2 07/24/16 12:30 85 16 115/71 99 07/24/16 09:08 36.4 Nasal Cannula 5.00 07/24/16 08:53 25 Intake and Output 07/23/16 07/23/16 07/24/16 Cumulative From/Thru 15:00 23:00 07:00 07/21/16 14:31 - 07/24/16 06:08 Intake Total 547 ml 143 ml 2835 ml Output Total 650 ml 700 ml 4096 ml Balance -103 ml -557 ml -1261 ml Intake Oral 380 ml 440 ml IV Total 167 ml 143 ml 1828 ml Packed Cells 567 ml Output Urine Total 650 ml 700 ml 4096 ml # Bowel Movements 1 1 Exam Neck is supple without adenopathy. Lungs showed some scattered rhonchi but otherwise are considerably clear. Heart sounds are distant but regular. Abdomen soft without any tenderness rebound guarding masses or hepatosplenomegaly. Extremities do not show any evidence of any clubbing, cyanosis, or edema. Skin turgor is good and is no evidence of any rashes. Lab and Diagnostics Result Diagram: 07/24/16 0340 07/24/16 0340 X-Rays, CTs and MRIs . X-RAY CHEST ONE VIEW, PORTABLE IMPRESSION: 1. Continued extensive bilateral airspace disease (right significantly greater than left), suspicious for multifocal pneumonia. The need for better characterization of this airspace disease utilizing CT of the chest may be determined clinically. 2. Cardiomegaly with mild vascular congestion. Dictated by: Leoncio Langston M.D. on 07/21/2016 at 14:52 US RENAL SONOGRAM IMPRESSION: Findings suggesting acute cholecystitis as above. Please correlate clinically and with LFTs. Findings were provided to the patient's clinical team (Nathalie Linares RN), by the project control manager, at the time of the examination 1855 hours on . 38 cc postvoid residual. Bilateral renal cortical thinning/atrophy and multiple bilateral renal cysts. No hydronephrosis. Dictated by: Horace Pantoja M.D. on 07/21/2016 at 19:38 X-RAY CHEST ONE VIEW, PORTABLE IMPRESSION: Worsening areas of pneumonia by laterally in the lungs. Probable small pleural effusions as well. Dictated by: Aaron Rendon M.D. on 07/22/2016 at 11:42 X-RAY CHEST ONE VIEW, PORTABLE IMPRESSION: Improved aeration of the right lung since yesterday suggesting resolving multifocal aspiration, although superimposed pneumonia cannot be excluded. Recommend clinical correlation Dictated by: Horace Pantoja M.D. on 07/23/2016 at 7:16 Cardiac Echo Impressions Echocardiogram Report Interpretation Summary 1) Mild concentric left ventricular hypertrophy with normal left ventricular size and mildly to moderately reduced systolic function (EF 45-50%). 2) Severe septal hypokinesis and apical inferior hypokinesis present. 3) Normal right ventricular size with mildly to moderately reduced systolic function. 4) Marked biatrial enlargement. 5) Moderate to severe mitral regurgitation that is directed posteriorly. Mitral leaflet do not coapt well. 6) Moderate to severe tricuspid regurgitation. 7) Pulmonary hypertension present, estimated systolic pulmonary pressure of 50mmHg. 8) Dilated IVC suggested of elevated right sided filling pressures. 9) Mildly to moderately enlarged ascending aorta (diameter 4.2cm) and mildly enlarged aortic arch (diameter 3.3cm). 10) No prior Echo available for comparison. 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 David Parikh DO Jul 24, 2016 14:47
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
[2016-07-24] MEDS: LATANOPROST 0.005% BOTH_EYES SCH (21:15)
[2016-07-25] VITALS (14 sets, daily range): BP systolic 123–157; BP diastolic 62–88; PULSE 82–91; RESP 13–18; O2SAT 93–100
[2016-07-25] MEDS: Meropenem Inj 1,000 MG in 0.9% Sodium Chloride 100 ML IV SCH ×3 (00:29→23:08)
--- NOTE | 2016-07-25 03:30 | NUR ---
IV/O2/One-touch IV saline locked, x 2 left lower and AC,4 L O2 per NC, decline Bipap to sleep. A&O x3 . call light appropriately, Bedside blood sugar [id number], one unit sliding scale. Tele- -Fib PVC's
[2016-07-25 04:18] LABS: BASOPHILS % (AUTO) 0 % (0-3); EOSINOPHILS % (AUTO) 0.7 % (0-5); MONOCYTES % (AUTO) 9.1 % (4-12); Mean Corpuscular Hemoglobin 27.5 pg (27.0-35.0); Mean Corpuscular Volume 88.5 fL (81-100); NEUTROPHILS % (AUTO) 83.7 % (40-74); Platelet Count 262 bil/L (150-400)
[2016-07-25 04:37] LABS: INR 2.18 ratio
[2016-07-25 04:53] LABS: Magnesium 2.6 mg/dL (1.6-2.6)
[2016-07-25] MEDS: Venlafaxine XR 75 mg ER24 Capsule PO SCH (07:49)
[2016-07-25] MEDS: predniSONE 20 mg Tablet PO SCH (07:49)
[2016-07-25] MEDS: Insulin LISPRO 300 Unit/3 mL Inj SUBQ SCH ×4 (07:49→21:22)
[2016-07-25] MEDS: [UNRECOGNIZED DRUG - OTHER] BOTH_EYES SCH (07:51)
[2016-07-25] MEDS: Albuterol-Ipratropium 3 mL Inhalation Solution NEB SCH ×4 (07:56→20:10)
[2016-07-25] MEDS ORDERED: Lactulose 20 Gm/30 mL 30 mL Syrup PO ONE (10:50)
--- NOTE | 2016-07-25 12:03 | PCM.PNNEPH ---
Subjective Date of Service Jul 25, 2016 Subjective Patient continues to do well and has had a good transition over to oral diuretics. He remains off CPAP support and is tolerating his diet rather well. His only complaint is that he does have some constipation. His intake and output for last 24 hour showed 1023 in 1225 out. His sodium is 144 potassium of 4.1 chloride 105 bicarbonate 23 BUN and creatinine were 76 and 4.1 respectively. His hemoglobin continues to improve at 9.6. Exam Vital Signs Vital Sign - Last Date Time Temp Pulse Resp B/P Pulse Ox O2 Delivery O2 Flow Rate FiO2 07/25/16 11:52 36.9 89 14 132/62 95 Room Air 07/25/16 07:56 3.00 07/24/16 08:53 25 Intake and Output 07/24/16 07/24/16 07/25/16 Cumulative From/Thru 15:00 23:00 07:00 07/21/16 14:31 - 07/25/16 04:51 Intake Total 880 ml 150 ml 3865 ml Output Total 525 ml 350 ml 4971 ml Balance 355 ml -200 ml -1106 ml Intake Oral 700 ml 0 ml 1140 ml IV Total 180 ml 150 ml 2158 ml Packed Cells 567 ml Output Urine Total 525 ml 350 ml 4971 ml # Bowel Movements 0 1 Exam Neck is supple without adenopathy thyromegaly or jugular venous distention. Lungs are clear to auscultation. Heart is regular and rhythmical with a soft systolic murmur. Abdomen soft without any tenderness rebound guarding masses or hepatosplenomegaly. Extremities do not show any evidence of any clubbing cyanosis or edema. Lab and Diagnostics Result Diagram: 07/25/1640607/25/16406 X-Rays, CTs and MRIs . X-RAY CHEST ONE VIEW, PORTABLE IMPRESSION: 1. Continued extensive bilateral airspace disease (right significantly greater than left), suspicious for multifocal pneumonia. The need for better characterization of this airspace disease utilizing CT of the chest may be determined clinically. 2. Cardiomegaly with mild vascular congestion. Dictated by: Leoncio Langston M.D. on 07/21/2016 at 14:52 US RENAL SONOGRAM IMPRESSION: Findings suggesting acute cholecystitis as above. Please correlate clinically and with LFTs. Findings were provided to the patient's clinical team (Nathalie Linares RN), by the chainstitch sewing machine operator, at the time of the examination 1855 hours on . 38 cc postvoid residual. Bilateral renal cortical thinning/atrophy and multiple bilateral renal cysts. No hydronephrosis. Dictated by: Horace Pantoja M.D. on 07/21/2016 at 19:38 X-RAY CHEST ONE VIEW, PORTABLE IMPRESSION: Worsening areas of pneumonia by laterally in the lungs. Probable small pleural effusions as well. Dictated by: Aaron Rendon M.D. on 07/22/2016 at 11:42 X-RAY CHEST ONE VIEW, PORTABLE IMPRESSION: Improved aeration of the right lung since yesterday suggesting resolving multifocal aspiration, although superimposed pneumonia cannot be excluded. Recommend clinical correlation Dictated by: Horace Pantoja M.D. on 07/23/2016 at 7:16 Cardiac Echo Impressions Echocardiogram Report Interpretation Summary 1) Mild concentric left ventricular hypertrophy with normal left ventricular size and mildly to moderately reduced systolic function (EF 45-50%). 2) Severe septal hypokinesis and apical inferior hypokinesis present. 3) Normal right ventricular size with mildly to moderately reduced systolic function. 4) Marked biatrial enlargement. 5) Moderate to severe mitral regurgitation that is directed posteriorly. Mitral leaflet do not coapt well. 6) Moderate to severe tricuspid regurgitation. 7) Pulmonary hypertension present, estimated systolic pulmonary pressure of 50mmHg. 8) Dilated IVC suggested of elevated right sided filling pressures. 9) Mildly to moderately enlarged ascending aorta (diameter 4.2cm) and mildly enlarged aortic arch (diameter 3.3cm). 10) No prior Echo available for comparison. Additional Diagnostics 07/22/2016 04:45 pH ____7.404 - 7.350 7.450 pCO2 ___35.4__ -mmHg 35.0 45.0 pO2 101 -mmHg 69.0 116 HCO3- ___21.7__ -mmol/L 22.0 26.0 Plan Impression Impression #1 stage V kidney disease #2 hypertension with hypertensive heart disease and hypertensive nephrosclerosis #3 diabetic nephropathy Recommendations #1 back down a bit on his sodium bicarbonate however I am quite pleased with his condition. David Parikh DO Jul 25, 2016 12:03
--- NOTE | 2016-07-25 13:01 | PROG NOTE ---
[address] [address] PROGRESS NOTE PATIENT: ROLA GILLESPIE : 1930 MR#: [id number] ADMIT: 07/21/2016 JOB ID: [id number] DATE: 07/25/2016 PROBLEMS: 1. Hypoxemic ventilatory failure, resolving. 2. Atrial fibrillation. 3. Pulmonary infiltrate. 4. Hypertension. 5. Congestive heart failure. 6. Possible COPD. SUBJECTIVE: Breathing comfortably. Minimal cough. No phlegm. No particular problem with shortness of breath. No chest pain. Appetite improving and eating much better. OBJECTIVE: Temperature 36.8. Pulse mid 80s. Respiratory rate mid teens. Blood pressure 123/71 to 157/87. O2 sat on 3 L is 98%. Currently O2 sat on room air is 94%. General appearance: No acute distress. Sitting upright in bed. Speaking easily. Chest: Absent breath sounds at the right base. Remainder of lung wallis are clear with good breath sounds. No use of accessory muscles. No pulmonary adventitial sounds. There was a brief inspiratory squeak in the room right anterior lung field that resolved after one breath. Heart: Irregular rhythm. Heart tones normal. Abdomen is soft. Bowel tones present. LABORATORY DATA: Shows a white count of 13,600 with 83 polymorphonuclears, 6 lymphs, 9 monocytes. Hemoglobin stable at 9.6. Platelet count stable at 262,000. Lytes are normal. BUN 76 and slowly increasing. Creatinine 4.1 and stable. Calcium 8.2 with an albumin of 2.8. ALT 53, mildly increased and decreasing. INR 2.18. ASSESSMENT: Hypoxemic respiratory failure. Doing quite well at this point. Off supplemental oxygen. Would monitor his oxygen at night to make sure he does not have nocturnal hypoxemia either because of the decreased respiratory drive with sleep or with any element of sleep apnea. In any case, he is currently on room air and doing rather well. PLAN: Nocturnal oxygen monitoring to make sure he does not have nocturnal hypoxemia. Will cease following on a routine basis. If any questions or problems arise, then please feel free to contact me.
--- NOTE | 2016-07-25 17:10 | NUR ---
O2/BM/Urinal The pt was able to remain on RA throughout the whole shift, with sats staying above 91%. Bipap still in the room incase needed for PM. The pt was given lactulose this afternoon - BM occurred at the [facility]. The pt's sparks has been DC'ed, and is using the urinal independently.
--- NOTE | 2016-07-25 17:18 | PCM.PNMED ---
Subjective Date of Service Jul 25, 2016 Subjective Patient is an 86-year-old gentleman with hypertension, congestive heart failure , nephrolithiasis and atrial fibrillation (on anticoagulation) admitted for CHF exacerbation and shortness of breath Overnight: Patient remains off BiPAP, was on nasal cannula for some of the night but was able to be transitioned off of supplemental O2. Oxygenating well on room air. Today: Patient saturating well in the mid to high 90s on room air. In no apparent distress. Overall states he feels absolutely fine, is ready to go home. He denies chest pain, shortness breath, headache, nausea vomiting, dizziness, abdominal pain. States complete resolution of his right flank/right lower & upper quadrant abdominal pain. Exam Vital Signs Vital Sign - Last Date Time Temp Pulse Resp B/P Pulse Ox O2 Delivery O2 Flow Rate FiO2 07/25/16 16:18 91 14 132/77 93 Room Air 07/25/16 11:52 36.9 07/25/16 07:56 3.00 07/24/16 08:53 25 Intake and Output 07/24/16 07/24/16 07/25/16 Cumulative From/Thru 15:00 23:00 07:00 07/21/16 14:31 - 07/25/16 04:51 Intake Total 880 ml 150 ml 3865 ml Output Total 525 ml 350 ml 4971 ml Balance 355 ml -200 ml -1106 ml Intake Oral 700 ml 0 ml 1140 ml IV Total 180 ml 150 ml 2158 ml Packed Cells 567 ml Output Urine Total 525 ml 350 ml 4971 ml # Bowel Movements 0 1 Exam General: Obese male sitting up in bed, awake and alert and appropriately interactive without supplemental oxygen in place. HEENT: Normocephalic, atraumatic. Anicteric sclerae, moist conjunctivae, and no lid lag. Oropharynx free of erythema with moist mucosa. Cardiovascular: Irregularly irregular rhythm, no murmurs rubs or gallops appreciated. Regular rate Pulmonary: Clear to auscultation bilaterally upper anterior lobes. No wheezes crackles or rhonchi appreciated. Normal respiratory effort with no use of accessory muscles Abdomen: Soft. No tenderness on palpation x 4 quadrants. Extremities: Bilateral lower extremity edema, improved from yesterday. SCD's in place. No cyanosis appreciated extremities warm to palpation, left ankle tender to palpation Skin: Normal temperature, turgor, and texture; no rash, ulcers, or subcutaneous nodules appreciated. Neurological: Cranial nerves grossly intact. Patient has known gait impairment, requiring the use of cane while walking. Psychiatric: Normal mood and affect. Alert and oriented to person, place, and time. IVs and Medications Medications Reviewed: Medications were reviewed in detail Lab and Diagnostics Result Diagram: 07/25/1640607/25/16406 Microbiology All appropriate cultures and serologies negative to date X-Rays, CTs and MRIs . X-RAY CHEST ONE VIEW, PORTABLE IMPRESSION: 1. Continued extensive bilateral airspace disease (right significantly greater than left), suspicious for multifocal pneumonia. The need for better characterization of this airspace disease utilizing CT of the chest may be determined clinically. 2. Cardiomegaly with mild vascular congestion. Dictated by: Leoncio Langston M.D. on 07/21/2016 at 14:52 US RENAL SONOGRAM IMPRESSION: Findings suggesting acute cholecystitis as above. Please correlate clinically and with LFTs. Findings were provided to the patient's clinical team (Nathalie Linares RN), by the mobile tester, at the time of the examination 1855 hours on . 38 cc postvoid residual. Bilateral renal cortical thinning/atrophy and multiple bilateral renal cysts. No hydronephrosis. Dictated by: Horace Pantoja M.D. on 07/21/2016 at 19:38 X-RAY CHEST ONE VIEW, PORTABLE IMPRESSION: Worsening areas of pneumonia by laterally in the lungs. Probable small pleural effusions as well. Dictated by: Aaron Rendon M.D. on 07/22/2016 at 11:42 X-RAY CHEST ONE VIEW, PORTABLE IMPRESSION: Improved aeration of the right lung since yesterday suggesting resolving multifocal aspiration, although superimposed pneumonia cannot be excluded. Recommend clinical correlation Dictated by: Horace Pantoja M.D. on 07/23/2016 at 7:16 Cardiac Echo Impressions Echocardiogram Report Interpretation Summary 1) Mild concentric left ventricular hypertrophy with normal left ventricular size and mildly to moderately reduced systolic function (EF 45-50%). 2) Severe septal hypokinesis and apical inferior hypokinesis present. 3) Normal right ventricular size with mildly to moderately reduced systolic function. 4) Marked biatrial enlargement. 5) Moderate to severe mitral regurgitation that is directed posteriorly. Mitral leaflet do not coapt well. 6) Moderate to severe tricuspid regurgitation. 7) Pulmonary hypertension present, estimated systolic pulmonary pressure of 50mmHg. 8) Dilated IVC suggested of elevated right sided filling pressures. 9) Mildly to moderately enlarged ascending aorta (diameter 4.2cm) and mildly enlarged aortic arch (diameter 3.3cm). 10) No prior Echo available for comparison. Additional Diagnostics 07/22/2016 04:45 pH ____7.404 - 7.350 7.450 pCO2 ___35.4__ -mmHg 35.0 45.0 pO2 101 -mmHg 69.0 116 HCO3- ___21.7__ -mmol/L 22.0 26.0 Assessment & Plan 86-year-old gentleman with past medical history of A. fib (on warfarin), CHF, hypertension, chronic kidney disease, pneumonia and probable COPD direct admit to CCU from [facility] emergency Department secondary to shortness of breath and acute blood loss anemia. Hospital day 5. 1. CHF exacerbation with systolic dysfunction. Present on admission. Improved. - Most likely secondary to noncompliance with home medications - Continue home metoprolol 12.5 twice a day - Hold home Enalapril due to TIFF and advanced CKD , amlodipine initially held secondary to hydrodynamic state ,now BP controlled without it - Nephrology following, appreciate their recommendations - Per nephrology start Torsemide 40mg am, 20mg pm and chlorthalidone 25 mg daily - CXR showed cardiomegaly - ECHO showed EF 45-50% with severe septal hypokinesis. Marked biatrial enlargement. Moderate to severe MR. Moderate to severe tricuspid regurgitation. Pulmonary hypertension. - Continue to monitor 2. Acute hypoxic respiratory failure. Present on admission. resolved - Etiologies include pneumonia, obesity hypoventilation syndrome, undiagnosed COPD exacerbation ,CHF - weaned off BiPAP, maintaining saturations on room air - CXR showed possible bilateral multifocal pneumonia - DuoNeb's every 4H when necessary - Prednisone 40 mg daily, consider taper tomorrow for 04/04/2017 3. Suspicion for pneumonia. Present on admission. Ongoing - Etiologies include community acquired pneumonia as well as aspiration pneumonia - Appropriate cultures and serologies negative to date - Procalcitonin now trending down 0.89 from a peak of 1.54 - Stop vancomycin secondary to negative MRSA screen - Continue meropenem 1 g twice a day, 2/2 good coverage for both CAP and aspiration pneumonia,will discontinue up on discharge 4. Acute blood loss anemia. Present on admission. Improving - Source most likely GI - INR supratherapudic on admit - s/p 10mg Vitamin K - INR normalized - 3 units PRBCs received in total - Warfarin, pharmacy to dose - Ultrasound - no free fluid - CT held secondary to #5 - Stool guaiacs positive - H&H remains anemic though stable 5. Chronic kidney disease. Present on admission. Ongoing - Per interview patient "on the road to dialysis" - Nephrology following, we appreciate their recommendations - Diuretics as in # 1 - Renvela per nephrology - Bicarbonate, dosing per nephrology 6. Morbid obesity. Present on admission. Ongoing - BMI 44.5 - Encourage weight loss 7. Drug dependence. Present on admission. Ongoing - Patient on oxycodone 10/325 twice a day secondary to chronic back pain - Continue to monitor 8. Hyperlipidemia, chronic. Present on admission. Ongoing - Lipid panel within normal limits - Continue home pravastatin 9. Depression, chronic. Present on admission. Ongoing - Continue home venlafaxine 10. Hyperglycemia. Present on admission. Ongoing - A1c 6.0 - Low-dose correctional scale 11. Atrial fibrillation, chronic. Present on admission. Ongoing - Pharmacy to dose warfarin DVT prophylaxis: SCDs, anticoagulation held secondary to supratherapeutic INR and anemia. Disposition: Pt has improved clinically within the last 2 days. Anticipate discharge in the next few days, possibly tomorrow depending on volume status and oxygenation requirements. Neurology signed off today. Nephrology also pleased with patient's progress, anticipate discharge tomorrow. GI Prophylaxis: H2 kacey VTE Prophylaxis: Theraputic Anticoag with Warfarin, SCDs VTE Mechanical Devices: Intermittant Pneumatic CD Resuscitation Status: Limited Interventions Limited Interventions: Compressions, Cardioversion/Defibrillation, BiPAP, Medications and IV Fluid Attending Statement The patient was seen and examined together with Dr. Hahn on 07/25/2016 and I agree with the history, exam and plan as outlined in the note above. MATTHEW HAHN DO Jul 25, 2016 17:18 Santiago Hoyos MD Jul 25, 2016 18:04
[2016-07-25] MEDS: LATANOPROST 0.005% BOTH_EYES SCH (20:12)
[2016-07-26] VITALS (11 sets, daily range): BP systolic 129–150; BP diastolic 64–82; PULSE 86–96; RESP 14–31; O2SAT 95–99
[2016-07-26 03:56] LABS: BASOPHILS % (AUTO) 0 % (0-3); EOSINOPHILS % (AUTO) 0.3 % (0-5); MONOCYTES % (AUTO) 8.1 % (4-12); Mean Corpuscular Hemoglobin 27.3 pg (27.0-35.0); Mean Corpuscular Volume 89.2 fL (81-100); NEUTROPHILS % (AUTO) 82.8 % (40-74); Platelet Count 260 bil/L (150-400)
[2016-07-26 04:09] LABS: INR 2.66 ratio
[2016-07-26 04:26] LABS: Magnesium 2.4 mg/dL (1.6-2.6)
--- NOTE | 2016-07-26 05:08 | NUR ---
Respiratory: Uneventful night, pt sleeping. Sp02 remains mid-high 90s on RA. Pt denies any pain, Vitals stable. Tele Afib 90s.
--- NOTE | 2016-07-26 05:09 | ABG ---
DateTimeAnalyzed 05:06:00 -_ pH ____7.414 - 7.350 7.450 pCO2 ___41.8__ -mmHg 35.0 45.0 pO2 ___66.7__ -mmHg 69.0 116 HCO3- ___26.3__ -mmol/L 22.0 26.0 ABE ____2.0__ -mmol/L -2.0 2.0 tHb ____9.7__ -g/dL O2Hb ___91.0__ -% COHb ____1.8__ -% MetHb ____1.0__ -% sO2 ___93.6__ -% 25.0 FIO2 ___21.0__ -% Drawn By MM - Notified By MM - B 749 -mmHg tO2 ___12.4__ -Vol% Scooter test _Positive -
[2016-07-26] MEDS: Albuterol-Ipratropium 3 mL Inhalation Solution NEB SCH ×4 (07:49→21:02)
[2016-07-26] MEDS: Insulin LISPRO 300 Unit/3 mL Inj SUBQ SCH ×4 (08:14→22:02)
[2016-07-26] MEDS: predniSONE 20 mg Tablet PO SCH (08:15)
[2016-07-26] MEDS: Venlafaxine XR 75 mg ER24 Capsule PO SCH (08:15)
[2016-07-26] MEDS: [UNRECOGNIZED DRUG - OTHER] BOTH_EYES SCH (08:24)
--- NOTE | 2016-07-26 11:55 | PCM.PHAPRO ---
Progress Warfarin Dosing Indication: AFIB C=V Score 3 o/ Recent dosing: Date 7-Jul 22-Jul 23-Jul 24-Jul 25-Jul 26-Jul 27-Jul 28-Jul INR 8.1 2.6 1.36 1.56 2.18 2.66 48 Warf Dose Hold HELD 2.5 2.5 1 0.5 Enox/Heparin N a/ CHF exacerbation complicating dose - VERY sensitive to warfarin. p/ Give small dose (0.5mg) today and follow. Vinod Alcala Pharm D Jul 26, 2016 11:55
--- NOTE | 2016-07-26 12:25 | NUR ---
Activity Pt up to chair for lunch. Tolerated well.
[2016-07-26] MEDS: Meropenem Inj 1,000 MG in 0.9% Sodium Chloride 100 ML IV SCH ×2 (12:30→23:38)
--- NOTE | 2016-07-26 12:33 | NUR ---
Social Work Note - Continued Discharge Planning: D/A: The Pt is an 86 y/o male that is now on day 5 of admission for respiratory failure, CRD, and severe anemia. PT eval completed, recommending discharge to SNF via cabulance. SW met with the Pt and his , SNF recommendations discussed. Pt and agreeable for SNF services, list provided. Pt and has SNF preferences for [facility] (1st pref) and [facility] (2nd pref). Referral request placed to [facility] delfina Patino. SW will continue to follow. P: The Pt is not medically stable for discharge, likely discharge to SNF when medically ready. PT eval completed, recommending discharge to SNF via cabulance. List provided, preference for [facility] (1st pref) and [facility] (2nd pref). Referral assistance requested. SW will continue to follow. RANDI Marvin Cycle Consultant Addendum: 07/26/16 at 1518 by MYAH MORA SW informed that [facility] is not contracted with the Pt's insurance. SW explored other options with the Pt and his . [facility] is now their 1st preference, 2nd preference is [facility]. [place] requested referral assistance with [facility]elf[facility]. RANDI Marvin Cycle Consultant
[2016-07-26] MEDS ORDERED: 0.9% Sodium Chloride 100 ML ONE (12:48)
--- NOTE | 2016-07-26 14:04 | NUR ---
Gave access to [facility] and faxed facesheet per [employer] Addendum: 07/26/16 at 1614 by MELODIE EDWARDS CM [facility], [facility] and [facility] and [facility] are no contracted with insurance. Gave access and faxed facesheet to [facility] [employer]
--- NOTE | 2016-07-26 16:30 | PCM.PNNEPH ---
Subjective Date of Service Jul 26, 2016 Subjective Patient continues to improve. He offers no new complaints and denies any chest pain, shortness of breath, cough or wheezing. His intake and output are 790 and and 1775 out. His sodium is 143, potassium 3.8, chloride 102, bicarbonate 24, renin were 76 and 3.98. Exam Vital Signs Vital Sign - Last Date Time Temp Pulse Resp B/P Pulse Ox O2 Delivery O2 Flow Rate FiO2 07/26/16 15:01 88 18 96 Room Air 07/26/16 12:33 36.6 142/76 07/25/16 07:56 3.00 07/24/16 08:53 25 Intake and Output 07/25/16 07/25/16 07/26/16 Cumulative From/Thru 15:00 23:00 07:00 07/21/16 14:31 - 07/26/16 05:09 Intake Total 640 ml 521 ml 5026 ml Output Total 1425 ml 400 ml 6796 ml Balance -785 ml 121 ml -1770 ml Intake Oral 540 ml 250 ml 1930 ml IV Total 100 ml 271 ml 2529 ml Packed Cells 567 ml Output Urine Total 1425 ml 400 ml 6796 ml # Bowel Movements 1 2 Exam Lungs are clear to auscultation. Heart is regular and rhythmic although somewhat distant. Abdomen is soft without any tenderness rebound guarding masses or hepatosplenomegaly. Extremities not show any evidence of any clubbing cyanosis or edema. Lab and Diagnostics Result Diagram: 07/26/16 0345 07/26/16 0345 Microbiology All appropriate cultures and serologies negative to date X-Rays, CTs and MRIs . X-RAY CHEST ONE VIEW, PORTABLE IMPRESSION: 1. Continued extensive bilateral airspace disease (right significantly greater than left), suspicious for multifocal pneumonia. The need for better characterization of this airspace disease utilizing CT of the chest may be determined clinically. 2. Cardiomegaly with mild vascular congestion. Dictated by: Leoncio Langston M.D. on 07/21/2016 at 14:52 US RENAL SONOGRAM IMPRESSION: Findings suggesting acute cholecystitis as above. Please correlate clinically and with LFTs. Findings were provided to the patient's clinical team (Nathalie Linares RN), by the health informatics specialist, at the time of the examination 1855 hours on . 38 cc postvoid residual. Bilateral renal cortical thinning/atrophy and multiple bilateral renal cysts. No hydronephrosis. Dictated by: Horace Pantoja M.D. on 07/21/2016 at 19:38 X-RAY CHEST ONE VIEW, PORTABLE IMPRESSION: Worsening areas of pneumonia by laterally in the lungs. Probable small pleural effusions as well. Dictated by: Aaron Rendon M.D. on 07/22/2016 at 11:42 X-RAY CHEST ONE VIEW, PORTABLE IMPRESSION: Improved aeration of the right lung since yesterday suggesting resolving multifocal aspiration, although superimposed pneumonia cannot be excluded. Recommend clinical correlation Dictated by: Horace Pantoja M.D. on 07/23/2016 at 7:16 Cardiac Echo Impressions Echocardiogram Report Interpretation Summary 1) Mild concentric left ventricular hypertrophy with normal left ventricular size and mildly to moderately reduced systolic function (EF 45-50%). 2) Severe septal hypokinesis and apical inferior hypokinesis present. 3) Normal right ventricular size with mildly to moderately reduced systolic function. 4) Marked biatrial enlargement. 5) Moderate to severe mitral regurgitation that is directed posteriorly. Mitral leaflet do not coapt well. 6) Moderate to severe tricuspid regurgitation. 7) Pulmonary hypertension present, estimated systolic pulmonary pressure of 50mmHg. 8) Dilated IVC suggested of elevated right sided filling pressures. 9) Mildly to moderately enlarged ascending aorta (diameter 4.2cm) and mildly enlarged aortic arch (diameter 3.3cm). 10) No prior Echo available for comparison. 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 He does need nephrology follow-up in the next few weeks especially to address his anemia. David Parikh DO Jul 26, 2016 16:30
--- NOTE | 2016-07-26 17:14 | PCM.PNMED ---
Subjective Date of Service Jul 26, 2016 Subjective Patient is an 86-year-old gentleman with hypertension, congestive heart failure , nephrolithiasis and atrial fibrillation (on anticoagulation) admitted for CHF exacerbation and shortness of breath Overnight: Patient remains off BiPAP, as well as supplemental O2. He is able to saturate well on room air. Uneventful night Today: Today patient awake and alert sitting in bedside chair on room air saturating well on the upper 90s. Overall he states he feels completely better as well as he felt prior to becoming sick leading him to his hospital admission. He states he is ready to go home no chest pain no shortness of breath no abdominal pain no nausea vomiting no headaches or visual changes. He does endorse a bilateral lower extremity pain/soreness which she says is chronic in nature. Physical therapy is working with this gentleman Exam Vital Signs Vital Sign - Last Date Time Temp Pulse Resp B/P Pulse Ox O2 Delivery O2 Flow Rate FiO2 07/26/16 15:01 88 18 96 Room Air 07/26/16 12:33 36.6 142/76 07/25/16 07:56 3.00 07/24/16 08:53 25 Intake and Output 07/25/16 07/25/16 07/26/16 Cumulative From/Thru 15:00 23:00 07:00 07/21/16 14:31 - 07/26/16 05:09 Intake Total 640 ml 521 ml 5026 ml Output Total 1425 ml 400 ml 6796 ml Balance -785 ml 121 ml -1770 ml Intake Oral 540 ml 250 ml 1930 ml IV Total 100 ml 271 ml 2529 ml Packed Cells 567 ml Output Urine Total 1425 ml 400 ml 6796 ml # Bowel Movements 1 2 Exam General: Obese male sitting in bedside chair, awake and alert and appropriately interactive without submental oxygen in place in no apparent distress. HEENT: Normocephalic, atraumatic. Anicteric sclerae, moist conjunctivae, and no lid lag. Oropharynx free of erythema with moist mucosa. Cardiovascular: Irregularly irregular rhythm, no murmurs rubs or gallops appreciated. Regular rate Pulmonary: Clear to auscultation bilaterally upper anterior lobes. No wheezes crackles or rhonchi appreciated. Normal respiratory effort with no use of accessory muscles Abdomen: Soft. No tenderness on palpation x 4 quadrants. Extremities: Lower extremity edema resolved. SCDs no longer in place. Nontender to palpation Skin: Normal temperature, turgor, and texture Neurological: Cranial nerves grossly intact. Patient has known gait impairment, requiring the use of cane while walking. Psychiatric: Normal mood and affect. Alert and oriented to person, place, and time. IVs and Medications Medications Reviewed: Medications were reviewed in detail Lab and Diagnostics Result Diagram: 07/26/1634407/26/16344 Microbiology All appropriate cultures and serologies negative to date X-Rays, CTs and MRIs . X-RAY CHEST ONE VIEW, PORTABLE IMPRESSION: 1. Continued extensive bilateral airspace disease (right significantly greater than left), suspicious for multifocal pneumonia. The need for better characterization of this airspace disease utilizing CT of the chest may be determined clinically. 2. Cardiomegaly with mild vascular congestion. Dictated by: Leoncio Langston M.D. on 07/21/2016 at 14:52 US RENAL SONOGRAM IMPRESSION: Findings suggesting acute cholecystitis as above. Please correlate clinically and with LFTs. Findings were provided to the patient's clinical team (Nathalie Linares RN), by the tanker service attendant, at the time of the examination 1855 hours on . 38 cc postvoid residual. Bilateral renal cortical thinning/atrophy and multiple bilateral renal cysts. No hydronephrosis. Dictated by: Horace Pantoja M.D. on 07/21/2016 at 19:38 X-RAY CHEST ONE VIEW, PORTABLE IMPRESSION: Worsening areas of pneumonia by laterally in the lungs. Probable small pleural effusions as well. Dictated by: Aaron Rendon M.D. on 07/22/2016 at 11:42 X-RAY CHEST ONE VIEW, PORTABLE IMPRESSION: Improved aeration of the right lung since yesterday suggesting resolving multifocal aspiration, although superimposed pneumonia cannot be excluded. Recommend clinical correlation Dictated by: Horace Pantoja M.D. on 07/23/2016 at 7:16 Cardiac Echo Impressions Echocardiogram Report Interpretation Summary 1) Mild concentric left ventricular hypertrophy with normal left ventricular size and mildly to moderately reduced systolic function (EF 45-50%). 2) Severe septal hypokinesis and apical inferior hypokinesis present. 3) Normal right ventricular size with mildly to moderately reduced systolic function. 4) Marked biatrial enlargement. 5) Moderate to severe mitral regurgitation that is directed posteriorly. Mitral leaflet do not coapt well. 6) Moderate to severe tricuspid regurgitation. 7) Pulmonary hypertension present, estimated systolic pulmonary pressure of 50mmHg. 8) Dilated IVC suggested of elevated right sided filling pressures. 9) Mildly to moderately enlarged ascending aorta (diameter 4.2cm) and mildly enlarged aortic arch (diameter 3.3cm). 10) No prior Echo available for comparison. Additional Diagnostics 07/26/2016 venous blood gas pH ____7.414 - 7.350 7.450 pCO2 ___41.8__ -mmHg 35.0 45.0 pO2 ___66.7__ -mmHg 69.0 116 HCO3- ___26.3__ -mmol/L 22.0 26.0 07/22/2016 04:45 pH ____7.404 - 7.350 7.450 pCO2 ___35.4__ -mmHg 35.0 45.0 pO2 101 -mmHg 69.0 116 HCO3- ___21.7__ -mmol/L 22.0 26.0 Assessment & Plan 86-year-old gentleman with past medical history of A. fib (on warfarin), CHF, hypertension, chronic kidney disease, pneumonia and probable COPD direct admit to CCU from [facility] emergency Department secondary to shortness of breath and acute blood loss anemia. Hospital day 6. 1. CHF exacerbation with systolic dysfunction. Present on admission. Improved. - Most likely secondary to noncompliance with home medications - Continue home metoprolol 12.5 twice a day - Hold home Enalapril due to TIFF and advanced CKD , amlodipine initially held secondary to hydrodynamic state - Continue home amlodipine 5 mg by mouth twice a day - Nephrology following, appreciate their recommendations - Per nephrology start Torsemide 40mg am, 20mg pm and chlorthalidone 25 mg daily - CXR showed cardiomegaly - ECHO showed EF 45-50% with severe septal hypokinesis. Marked biatrial enlargement. Moderate to severe MR. Moderate to severe tricuspid regurgitation. Pulmonary hypertension. - Continue to monitor 2. Acute hypoxic respiratory failure. Present on admission. resolved - Etiologies include pneumonia, obesity hypoventilation syndrome, undiagnosed COPD exacerbation ,CHF - weaned off BiPAP, maintaining saturations on room air - CXR showed possible bilateral multifocal pneumonia - DuoNeb's every 4H when necessary - Prednisone 40 mg daily, tapered down to 30 mg daily starting 07/27/2016 3. Suspicion for pneumonia. Present on admission. Ongoing - Etiologies include community acquired pneumonia as well as aspiration pneumonia - Appropriate cultures and serologies negative to date - Procalcitonin continues to trend down 0.67 from peak of 1.54 - Stop vancomycin secondary to negative MRSA screen - Continue meropenem 1 g twice a day, 2/2 good coverage for both CAP and aspiration pneumonia,will discontinue up on discharge 4. Acute blood loss anemia. Present on admission. Improving - Source most likely GI on top of chronic kidney disease - INR supratherapudic on admit - s/p 10mg Vitamin K - INR normalized - 3 units PRBCs received in total - Warfarin, pharmacy to dose - Ultrasound - no free fluid - CT held secondary to #5 - Stool guaiacs positive - H&H remains anemic though stable 5. Chronic kidney disease. Present on admission. Ongoing - Per interview patient "on the road to dialysis" - Nephrology following, we appreciate their recommendations - Diuretics as in # 1 - Renvela per nephrology - Bicarbonate, dosing per nephrology 6. Morbid obesity. Present on admission. Ongoing - BMI 44.5 - Encourage weight loss 7. Drug dependence. Present on admission. Ongoing - Patient on oxycodone 10/325 twice a day secondary to chronic back pain - Continue to monitor 8. Hyperlipidemia, chronic. Present on admission. Ongoing - Lipid panel within normal limits - Continue home pravastatin 9. Depression, chronic. Present on admission. Ongoing - Continue home venlafaxine 10. Hyperglycemia. Present on admission. Ongoing - A1c 6.0 - Low-dose correctional scale 11. Atrial fibrillation, chronic. Present on admission. Ongoing - Pharmacy to dose warfarin 12. Peripheral neuropathy. Present on admission. Ongoing - Restarted at home gabapentin DVT prophylaxis: SCDs, anticoagulation held secondary to supratherapeutic INR and anemia. Disposition: Discharged to SNF tomorrow 07/27/2016 awaiting acceptance. GI Prophylaxis: H2 kacey VTE Prophylaxis: Theraputic Anticoag with Warfarin, SCDs VTE Mechanical Devices: Intermittant Pneumatic CD Resuscitation Status: Limited Interventions Limited Interventions: Compressions, Cardioversion/Defibrillation, BiPAP, Medications and IV Fluid Attending Statement The patient was seen and examined independently on 07/26/2016 and case discussed with Dr. Hahn . I agree with the history, exam and plan as outlined in the note above. MATTHEW HAHN DO Jul 26, 2016 17:14 Santiago Hoyos MD Jul 27, 2016 06:30
[2016-07-26] MEDS: LATANOPROST 0.005% BOTH_EYES SCH (21:32)
[2016-07-27] VITALS (11 sets, daily range): BP systolic 129–144; BP diastolic 76–89; PULSE 84–109; RESP 18–24; O2SAT 94–100
[2016-07-27 04:29] LABS: BASOPHILS % (AUTO) 0.1 % (0-3); EOSINOPHILS % (AUTO) 0.1 % (0-5); MONOCYTES % (AUTO) 8.5 % (4-12); Mean Corpuscular Hemoglobin 27.4 pg (27.0-35.0); Mean Corpuscular Volume 88.3 fL (81-100); NEUTROPHILS % (AUTO) 80.8 % (40-74); Platelet Count 264 bil/L (150-400)
--- NOTE | 2016-07-27 06:08 | NUR ---
weight pts bed was changed yesterday and weight is very off this morning, ptnot wanting to get up on the standing scale until he gets up for breakfast.
--- NOTE | 2016-07-27 06:09 | NUR ---
respiratory pt on RA SpO2 mid to high 90s pt denies any SOB, pt sleeping well through the night
[2016-07-27 08:25] LABS: INR 2.6 ratio
[2016-07-27] MEDS: Albuterol-Ipratropium 3 mL Inhalation Solution NEB SCH ×4 (08:33→20:46)
[2016-07-27] MEDS: Venlafaxine XR 75 mg ER24 Capsule PO SCH (08:36)
[2016-07-27] MEDS: Insulin LISPRO 300 Unit/3 mL Inj SUBQ SCH ×4 (08:36→21:03)
[2016-07-27] MEDS: predniSONE 20 mg Tablet PO SCH (08:37)
[2016-07-27] MEDS: [UNRECOGNIZED DRUG - OTHER] BOTH_EYES SCH (08:38)
--- NOTE | 2016-07-27 09:08 | NUR ---
Spoke with Rojas at [facility] and he is reviewing now and they do have a contract with [employer].
--- NOTE | 2016-07-27 09:55 | DRSVH ---
PROCEDURE: X-RAY CHEST ONE VIEW, PORTABLE ([id number]) INDICATIONS: CHF exacerbation TECHNIQUE: One view of the chest was acquired. COMPARISON: Residual patchy pulmonary edema. [facility], CR, XR CHEST 1VW (PORTABLE), , 3:00. FINDINGS: Surgical changes and devices: None. Lungs and pleura: Persistent airspace opacity at right lung redemonstrated otherwise interstitium is prominent and similar prior examination. Mediastinum: Mediastinal contours appear normal. Heart size is enlarged. Bones and chest wall: No suspicious bony lesions. Overlying soft tissues appear unremarkable. IMPRESSION: Cardiomegaly and interstitial prominence suggesting mild pulmonary edema and there is focal airspace opacity within the mid right lung consistent with atelectasis, aspiration, or residual patchy pulmona ry edema. Dictated by: Vlad HAY Interpreted: Soumya Valentin MD on 07/27/2016 at 9:53 Transcribed by: DANIELLA on 07/27/2016 at 9:55 Approved by: Soumya Valentin M.D. on 07/27/2016 at 11:16
--- NOTE | 2016-07-27 10:05 | NUR ---
Social Work: Readiness for Discharge D: Pt discussed in am rounds. Pt is medically stable for SNF discharge. [facility] holds a [employer] contract. CONTROLLER OPERATIONS AND HR MANAGER spoke with Rojas who states they can accept the pt with Dr. Puente to follow pending authorization from [facility]. He is submit the request and will update CONTROLLER OPERATIONS AND HR MANAGER when he receives information. CONTROLLER OPERATIONS AND HR MANAGER updated MD. CONTROLLER OPERATIONS AND HR MANAGER met with pt at bedside to confirm discharge plan. CONTROLLER OPERATIONS AND HR MANAGER updated pt that [facility] does not hold a [employer] contract. Pt is agreeable to discharge to [facility] and was updated about need for authorization. Pt agrees with plan for the day and to await notification from insurance. CONTROLLER OPERATIONS AND HR MANAGER also updated pt's via telephone about plan as pt does have some noted dementia. PPW on chart. PASSR signed by . A: Pt who is currently Charles with FWW however only ambulating 12 feet and is high fall risk. P: Anticipate pt to discharge to [facility] with Dr. Puente to follow pending [facility] Authorization; CONTROLLER OPERATIONS AND HR MANAGER to continue to follow. RANDI Crowell
[2016-07-27] MEDS ORDERED: Darbepoetin Alfa 60 mCg/0.3 mL Inj SUBQ ONE (10:30)
--- NOTE | 2016-07-27 10:47 | NUR ---
Spoke with Rojas at [facility] and they can accept patient. Rojas has started authorization through [facility] and he will updated me as soon as he has decision. Updated L[employer]ANK [employer]UTTER
--- NOTE | 2016-07-27 11:22 | PCM.PHAPRO ---
Progress WARFARIN DOSING INDICATION: AFIB HOME DOSE; 5mg MOTUTHFR, 2.5mg AOD Date -Jul 22-Jul 23-Jul 24-Jul 25-Jul 26-Jul 27-Jul 14-Jul INR 8.1 2.6 1.36 1.56 2.18 2.66 2.6 INR change -5.5 -1.24 0.2 0.62 0.48 -0.06 Warf Dose Hold HELD 2.5 2.5 1 0.5 1 Enox/Heparin N a/ Decreased sensitivity 2/2 CHF decompensation, likely to continue until resolved p/ Continue with 1mg dose today and follow Vindo Alcala Pharm D Jul 27, 2016 11:22
[2016-07-27] MEDS: Meropenem Inj 1,000 MG in 0.9% Sodium Chloride 100 ML IV SCH (12:47)
--- NOTE | 2016-07-27 14:11 | NUR ---
NUTRITION FOLLOW UP: ASSESS: 86 YO male admitted for CHF exacerbation, acute respiratory failure requiring BiPAP and possible pneumonia. Nephrology is following pt. Diet continues on a Dysphagia Mechanical and ST is recommending pt remain on this diet after discharge. PO has been good at 100% of all trays. There is a large discrepancy btwn pt wt 07/27 and 07/25 PMHx: A-fib, CHF, HTN, nephrolithiasis, pneumonia, possible COPD. DIET: Dysphagia mechanical. PO intake 100% all meals LABS: Bun 90, A P Manager 3.51, Glu 177, Ca 8.4, Alb 2.8 MEDICATIONS: Lasix, Prednisone, Coumadin, Insulin. Perla: 1 BM 07/26. SKIN: No issues reported. Rojelio 21 ANTHROPOMETRICS: Current Wt: 103 kg, BMI: 32.6 kg/m2, IBW: 75.45 kg (182% IBW) ESTIMATED NEEDS (BMI, CKD ): Calories: 1869-7492 kcal (25-30 kcal/kg IBW) Protein: 75-91 g protein (1.0-1.2 g/kg IBW) Fluid: Approx. 3440 mL (25 mL/kg BW) NUTRITION DIAGNOSIS: 1) Chewing/swallowing difficulties related to requirement for BiPAP, as evidenced by NPO status per ST order, inadequate oral intake.-IMPROVING. INTERVENTION: 1) Continue current diet. 2) Do to adequate PO will decrease supplements to Glucerna on L tray and Magic Cup on D tray 3) Will monitor wt trends MONITOR/EVALUATE: Diet tolerance, PO, wt, labs, GI/nutrition status. Follow per moderate nutrition risk guidelines.
--- NOTE | 2016-07-27 17:34 | PCM.PNMED ---
Subjective Date of Service Jul 27, 2016 Subjective Patient is an 86-year-old gentleman with hypertension, congestive heart failure , nephrolithiasis and atrial fibrillation (on anticoagulation) admitted for CHF exacerbation and shortness of breath Overnight: Patient slept well through the night maintaining O2 saturation levels on room air. Today: Patient awake and alert sitting in bedside chair appropriately interactive. Ready to be discharged from hospital. Unfortunately inch patient' s insurance is providing a barrier to discharge to assisted facility. Exam Vital Signs Vital Sign - Last Date Time Temp Pulse Resp B/P Pulse Ox O2 Delivery O2 Flow Rate FiO2 07/27/16 16:45 89 20 96 Room Air 07/27/16 16:06 36.5 129/78 07/25/16 07:56 3.00 07/24/16 08:53 25 Intake and Output 07/26/16 07/26/16 07/27/16 Cumulative From/Thru 14:59 22:59 06:59 07/21/16 14:31 - 07/27/16 06:33 Intake Total 1720 ml 420 ml 7166 ml Output Total 750 ml 825 ml 8371 ml Balance 970 ml -405 ml -1205 ml Intake Oral 1720 ml 300 ml 3950 ml IV Total 120 ml 2649 ml Packed Cells 567 ml Output Urine Total 750 ml 825 ml 8371 ml # Bowel Movements 1 3 Exam General: Obese male sitting in bedside chair, awake and alert and appropriately interactive without submental oxygen in place in no apparent distress, eating meal. HEENT: Normocephalic, atraumatic. Anicteric sclerae, moist conjunctivae, and no lid lag. Oropharynx free of erythema with moist mucosa. Cardiovascular: Irregularly irregular rhythm, no murmurs rubs or gallops appreciated. Regular rate Pulmonary: Clear to auscultation bilaterally upper anterior lobes. No wheezes crackles or rhonchi appreciated. Normal respiratory effort with no use of accessory muscles Abdomen: Soft. No tenderness on palpation x 4 quadrants. Extremities: Lower extremity edema resolved. SCDs no longer in place. Nontender to palpation Skin: Normal temperature, turgor, and texture Neurological: Cranial nerves grossly intact. Patient has known gait impairment, requiring the use of cane while walking. Psychiatric: Normal mood and affect. Alert and oriented to person, place, and time. IVs and Medications Medications Reviewed: Medications were reviewed in detail Lab and Diagnostics Result Diagram: 07/27/16 0351 07/27/16 0351 Microbiology All appropriate cultures and serologies negative to date X-Rays, CTs and MRIs . X-RAY CHEST ONE VIEW, PORTABLE IMPRESSION: 1. Continued extensive bilateral airspace disease (right significantly greater than left), suspicious for multifocal pneumonia. The need for better characterization of this airspace disease utilizing CT of the chest may be determined clinically. 2. Cardiomegaly with mild vascular congestion. Dictated by: Leoncio Langston M.D. on 07/21/2016 at 14:52 US RENAL SONOGRAM IMPRESSION: Findings suggesting acute cholecystitis as above. Please correlate clinically and with LFTs. Findings were provided to the patient's clinical team (Nathalie Linares RN), by the thermodynamics engineer, at the time of the examination 1855 hours on . 38 cc postvoid residual. Bilateral renal cortical thinning/atrophy and multiple bilateral renal cysts. No hydronephrosis. Dictated by: Horace Pantoja M.D. on 07/21/2016 at 19:38 X-RAY CHEST ONE VIEW, PORTABLE IMPRESSION: Worsening areas of pneumonia by laterally in the lungs. Probable small pleural effusions as well. Dictated by: Aaron Rendon M.D. on 07/22/2016 at 11:42 X-RAY CHEST ONE VIEW, PORTABLE IMPRESSION: Improved aeration of the right lung since yesterday suggesting resolving multifocal aspiration, although superimposed pneumonia cannot be excluded. Recommend clinical correlation Dictated by: Horace Pantoja M.D. on 07/23/2016 at 7:16 Cardiac Echo Impressions Echocardiogram Report Interpretation Summary 1) Mild concentric left ventricular hypertrophy with normal left ventricular size and mildly to moderately reduced systolic function (EF 45-50%). 2) Severe septal hypokinesis and apical inferior hypokinesis present. 3) Normal right ventricular size with mildly to moderately reduced systolic function. 4) Marked biatrial enlargement. 5) Moderate to severe mitral regurgitation that is directed posteriorly. Mitral leaflet do not coapt well. 6) Moderate to severe tricuspid regurgitation. 7) Pulmonary hypertension present, estimated systolic pulmonary pressure of 50mmHg. 8) Dilated IVC suggested of elevated right sided filling pressures. 9) Mildly to moderately enlarged ascending aorta (diameter 4.2cm) and mildly enlarged aortic arch (diameter 3.3cm). 10) No prior Echo available for comparison. Additional Diagnostics 07/26/2016 venous blood gas pH ____7.414 - 7.350 7.450 pCO2 ___41.8__ -mmHg 35.0 45.0 pO2 ___66.7__ -mmHg 69.0 116 HCO3- ___26.3__ -mmol/L 22.0 26.0 07/22/2016 04:45 pH ____7.404 - 7.350 7.450 pCO2 ___35.4__ -mmHg 35.0 45.0 pO2 101 -mmHg 69.0 116 HCO3- ___21.7__ -mmol/L 22.0 26.0 Assessment & Plan 86-year-old gentleman with past medical history of A. fib (on warfarin), CHF, hypertension, chronic kidney disease, pneumonia and probable COPD direct admit to CCU from [facility] emergency Department secondary to shortness of breath and acute blood loss anemia. Hospital day 7. 1. CHF exacerbation with systolic dysfunction. Present on admission. Improved. - Most likely secondary to noncompliance with home medications - Continue home metoprolol 12.5 twice a day - Hold home Enalapril due to TIFF and advanced CKD , amlodipine initially held secondary to hydrodynamic state - Continue home amlodipine 5 mg by mouth twice a day - Nephrology following, appreciate their recommendations - Per nephrology start Torsemide 40mg am, 20mg pm and chlorthalidone 25 mg daily - CXR showed cardiomegaly - ECHO showed EF 45-50% with severe septal hypokinesis. Marked biatrial enlargement. Moderate to severe MR. Moderate to severe tricuspid regurgitation. Pulmonary hypertension. - Continue to monitor 2. Acute hypoxic respiratory failure. Present on admission. resolved - Etiologies include pneumonia, obesity hypoventilation syndrome, undiagnosed COPD exacerbation ,CHF - weaned off BiPAP, maintaining saturations on room air - CXR showed possible bilateral multifocal pneumonia - DuoNeb's every 4H when necessary - Prednisone taper started 3. Suspicion for pneumonia. Present on admission. Ongoing - Etiologies include community acquired pneumonia as well as aspiration pneumonia - Appropriate cultures and serologies negative to date - Procalcitonin continues to trend down 0.67 from peak of 1.54 - Stop vancomycin secondary to negative MRSA screen - DC'd meropenem 4. Acute blood loss anemia. Present on admission. Improving - Source most likely GI on top of chronic kidney disease - INR supratherapudic on admit - s/p 10mg Vitamin K - INR normalized - 3 units PRBCs received in total - Warfarin, pharmacy to dose - Ultrasound - no free fluid - CT held secondary to #5 - Stool guaiacs positive - H&H remains anemic though stable 5. Chronic kidney disease. Present on admission. Ongoing - Per interview patient "on the road to dialysis" - Nephrology following, we appreciate their recommendations - Diuretics as in # 1 - Renvela per nephrology - Bicarbonate, dosing per nephrology 6. Morbid obesity. Present on admission. Ongoing - BMI 44.5 - Encourage weight loss 7. Drug dependence. Present on admission. Ongoing - Patient on oxycodone 10/325 twice a day secondary to chronic back pain - Continue to monitor 8. Hyperlipidemia, chronic. Present on admission. Ongoing - Lipid panel within normal limits - Continue home pravastatin 9. Depression, chronic. Present on admission. Ongoing - Continue home venlafaxine 10. Hyperglycemia. Present on admission. Ongoing - A1c 6.0 - Low-dose correctional scale 11. Atrial fibrillation, chronic. Present on admission. Ongoing - Pharmacy to dose warfarin 12. Peripheral neuropathy. Present on admission. Ongoing - Restarted at home gabapentin DVT prophylaxis: SCDs, warfarin pharmacy to dose Disposition: Discharged to SNF tomorrow 07/28/2016 awaiting insurance approval GI Prophylaxis: H2 kacey VTE Prophylaxis: Theraputic Anticoag with Warfarin, SCDs VTE Mechanical Devices: Intermittant Pneumatic CD Resuscitation Status: Limited Interventions Limited Interventions: Compressions, Cardioversion/Defibrillation, BiPAP, Medications and IV Fluid Attending Statement The patient was seen and examined together with Dr. Hahn on 07/27/16 and I agree with the history, exam and plan as outlined in the note above. MATTHEW HAHN DO Jul 27, 2016 17:34 Santiago Hoyos MD Jul 27, 2016 18:40
[2016-07-27] MEDS: LATANOPROST 0.005% BOTH_EYES SCH (20:35)
[2016-07-27] MEDS ORDERED: 0.9% Sodium Chloride 100 ML ONE (23:07)
[2016-07-28 00:03] VITALS: BP 151/80; PULSE 94; RESP 18; O2SAT 97
[2016-07-28 03:13] VITALS: PULSE 86
--- NOTE | 2016-07-28 03:55 | NUR ---
Tele/Activity/incont/BG level Telemetry: AFIB HR 80-90s per telemetry monitor. Pt dangled on the side of the bed a couple of times this shift and needed 2:1 per ext assistance with bed boosting. Pt had a couple of incont urine episodes and also used the urinal when able. Pt wears pull ups for dignity. BG levels 213/187 no s/sx of hypo/hyperglycemia noted at this time. care ongoing.
[2016-07-28 04:20] LABS: BASOPHILS % (AUTO) 0.1 % (0-3); EOSINOPHILS % (AUTO) 0.1 % (0-5); MONOCYTES % (AUTO) 8.6 % (4-12); Mean Corpuscular Hemoglobin 27.5 pg (27.0-35.0); Mean Corpuscular Volume 88.1 fL (81-100); NEUTROPHILS % (AUTO) 79.3 % (40-74); Platelet Count 263 bil/L (150-400)
[2016-07-28 04:39] LABS: INR 2.37 ratio
[2016-07-28 04:49] VITALS: BP 154/85; PULSE 85; RESP 20; O2SAT 95
[2016-07-28] MEDS: predniSONE 20 mg Tablet PO SCH (07:56)
[2016-07-28] MEDS: Venlafaxine XR 75 mg ER24 Capsule PO SCH (07:56)
[2016-07-28] MEDS: [UNRECOGNIZED DRUG - OTHER] BOTH_EYES SCH (07:58)
[2016-07-28] MEDS: Insulin LISPRO 300 Unit/3 mL Inj SUBQ SCH (07:58)
[2016-07-28] MEDS ORDERED: SEVE800T7 PO (07:59)
[2016-07-28] MEDS ORDERED: TORS20TA PO ×2 (07:59)
[2016-07-28] MEDS ORDERED: SODI325T PO (07:59)
[2016-07-28 08:00] VITALS: BP 152/80; PULSE 80; PULSE 89; RESP 26; O2SAT 94
[2016-07-28 08:11] VITALS: PULSE 84; RESP 20; O2SAT 97
[2016-07-28] MEDS: Albuterol-Ipratropium 3 mL Inhalation Solution NEB SCH ×2 (08:11→11:00)
[2016-07-28] MEDS ORDERED: IPRA3AMP NEB (08:15)
[2016-07-28] MEDS ORDERED: METO-272 PO (08:23)
[2016-07-28] MEDS ORDERED: PRE10 PO ×2 (08:23→08:30)
--- NOTE | 2016-07-28 08:25 | NUR ---
Rojas from [facility] called and Ricardo has approved patient for transfer to [facility] today.
[2016-07-28] MEDS ORDERED: HYG25 PO (09:09)
--- NOTE | 2016-07-28 09:12 | PCM.DIMED ---
Discharge Instructions Date of Service Jul 28, 2016 Dates of Hospitalization Jul 21, 2016 at 11:57 Discharge Diagnosis Discharge Diagnosis . 1. CHF exacerbation with systolic dysfunction 2. Acute hypoxic respiratory failure 3. Suspicion for pneumonia 4. Acute blood loss anemia 5. Chronic kidney disease 6. Morbid obesity 7. Drug dependence, opioid medication 8. Hyperlipidemia, chronic 9. Depression, chronic 10. Hyperglycemia 11. Atrial fibrillation 12. Peripheral neuropathy Medication Instructions Please continue to take all of your regularly prescribed medications in the regularly prescribed doses at the regularly prescribed intervals. With the exception of your metoprolol. Your home dose of metoprolol was 100 mg of metoprolol succinate ER by mouth twice a day. During your hospital stay. Heart rate was controlled with 12.5 mg by mouth twice a day. Your being discharged with half of your home dose to take twice a day. This means you are to take 50 mg tablet of metoprolol succinate ER by mouth twice a day. If you notice any heart palpitations dizziness visual disturbances chest pain or shortness of breath please notify your healthcare provider, return to the urgent care or the hospital immediately. I have stopped your diuretic medication furosemide. Other prescriptions you are being discharged with that are new include: 1. Renvela. You are to take an 800 mg tablet of this medication via mouth 3 times a day with meals. 2. Sodium bicarbonate. 650 mg by mouth twice a day 3. You will now take a new diuretic medication called torsemide. You are to take 40 mg of this medication by mouth in the morning. In the afternoon at approximately 3 PM you are to take an additional 20 mg of this medication by mouth. 4. I am giving you a prescription for more nebulizer treatments as you seem to a found benefit with these while in the hospital. Please take 1 nebulizer treatment as needed every 4 hours for shortness of breath or wheezing. 5. Per nephrology being prescribed a medication called chlorthalidone you are to take a 25 mg tablet of this medication by mouth every morning 6. You are also getting a prescription for prednisone, as you receive this medication while in the hospital is important that you do a taper of this steroid medication. You received a 30 mg dose on the day of discharge 2016, tomorrow 07/29/2016 you are to take 20 mg of this medication , the following day 07/30/2016 you are to take 20 mg of this medication by mouth, and then on 07/31/2016 you are to take 10 mg of this medication by mouth. Finally on 08/01/2016 you are to take 10 mg of this medication by mouth This will complete her prednisone taper Today, Sunday: 07/28/2016 - 30 mg prednisone given in hospital Tomorrow, Sunday: 07/29/2016- 20 mg prednisone by mouth Sunday: 07/30/2016- 20 mg prednisone by mouth Sunday: 07/31/2016- 10 mg prednisone by mouth Sunday: 08/01/2016 - 10 mg prednisone by mouth Diet Heart Healthy, Diabetic Activity Limited until seen by PCP Call your provider Fever or Chills, Shortness of breath, Bleeding, Chest pain, Vomitting, Excessive diarrhea, Weakness (unilateral) Patient Instructions Please follow-up with your primary care provider within the next week or two. You will need to see a plate colorer in the next 2 weeks, this can either be your plate colorer that you currently see at [facility] or you are welcome to see one of our nephrologists here at [facility]. Dr. Parikh would be happy to be your plate colorer and it is very important that you follow up with Dr. Parikh in the next 2 weeks. Please get a basic metabolic profile in 3-4 days as the medications you have been started on may cause electrolyte disturbances Follow-up plan Follow-up with her primary care doctor in the next 1-2 weeks, follow-up with plate colorer Dr. Parikh in 3 weeks. Please call to schedule an appointment with Dr. Parikh at [facility] nephrology Department. Follow-up Provider: David Nascimento MD Follow-up with PCP in: 1 week Provider: David Parikh DO Follow-up in: 2 weeks MATTHEW VALENTIN DO Jul 28, 2016 08:08
--- NOTE | 2016-07-28 10:09 | NUR ---
Social Work: Discharge D: Pt discussed in am rounds. Pt is medically stable for discharge. SAS ARCHITECT and [employer] OPERATOR have received notification from [facility] that [facility] has authorized the pt's SNF stay. notified and has completed orders. SAS ARCHITECT spoke with pt and pt's to update. They are both very pleased and agree with plan to d/c to [facility]. Orders faxed. PPW and copies of orders/discharge packet on chart. A: Pt who will require continued rehab at time of discharge for continued strengthening and mobility training. P: Pt to discharge to [facility] with Dr. Puente to follow; SAS ARCHITECT requested transport time from [facility] and will update bedside RN with time once received. RANDI Crowell
[2016-07-28 11:46] VITALS: BP 146/76; PULSE 90; RESP 24; O2SAT 95
--- NOTE | 2016-07-28 13:16 | NUR ---
Discharge Patient A&O x3. Denies pain/discomfort. VSS. Patient in chronic Afib with rate in the 70s. Report called to RN at [facility]. IV DC'd intact. Patient left unit via WC accompanied by family and transported to facility via cabulance.
[2016-07-28] MEDS ORDERED: OXYC-466 PO (13:50)
--- NOTE | 2016-07-28 15:36 | PCM.DC.MED ---
Discharge Summary Date of Service Jul 28, 2016 Dates of Hospitalization Date of Hospital Admission Jul 21, 2016 at 11:57 Date of Discharge: Jul 28, 2016 Providers: Admitting Physician: Dayday Leyva MD Primary Care Physician: David Nascimento MD Attending Physician: Dayday Leyva MD Diagnosis at Time of Discharge Diagnosis at Time of Discharge . 1. CHF exacerbation with systolic dysfunction 2. Acute hypoxic respiratory failure 3. Suspicion for pneumonia 4. Acute blood loss anemia 5. Chronic kidney disease 6. Morbid obesity 7. Drug dependence, opioid medication 8. Hyperlipidemia, chronic 9. Depression, chronic 10. Hyperglycemia 11. Atrial fibrillation 12. Peripheral neuropathy Consultations Dr. Jl D.O. Nephrology Dr. Merrill Black Pulmonology Dr. Lianna Black Gen. surgery Procedures XRay, CTs & MRIs . X-RAY CHEST ONE VIEW, PORTABLE IMPRESSION: 1. Continued extensive bilateral airspace disease (right significantly greater than left), suspicious for multifocal pneumonia. The need for better characterization of this airspace disease utilizing CT of the chest may be determined clinically. 2. Cardiomegaly with mild vascular congestion. Dictated by: Leoncio Langston M.D. on 07/21/2016 at 14:52 US RENAL SONOGRAM IMPRESSION: Findings suggesting acute cholecystitis as above. Please correlate clinically and with LFTs. Findings were provided to the patient's clinical team (Nathalie Linares RN), by the career development associate, at the time of the examination 1855 hours on . 38 cc postvoid residual. Bilateral renal cortical thinning/atrophy and multiple bilateral renal cysts. No hydronephrosis. Dictated by: Horace Pantoja M.D. on 07/21/2016 at 19:38 X-RAY CHEST ONE VIEW, PORTABLE IMPRESSION: Worsening areas of pneumonia by laterally in the lungs. Probable small pleural effusions as well. Dictated by: Aaron Rendon M.D. on 07/22/2016 at 11:42 X-RAY CHEST ONE VIEW, PORTABLE IMPRESSION: Improved aeration of the right lung since yesterday suggesting resolving multifocal aspiration, although superimposed pneumonia cannot be excluded. Recommend clinical correlation Dictated by: Horace Pantoja M.D. on 07/23/2016 at 7:16 X-RAY CHEST ONE VIEW, PORTABLE IMPRESSION: Cardiomegaly and interstitial prominence suggesting mild pulmonary edema and there is focal airspace opacity within the mid right lung consistent with atelectasis, aspiration, or residual patchy pulmonary edema. Dictated by: Vlad HAY Interpreted: Soumya Valentin MD on 07/27/2016 at 9:53 Cardiac Echo Impression Echocardiogram Report Interpretation Summary 1) Mild concentric left ventricular hypertrophy with normal left ventricular size and mildly to moderately reduced systolic function (EF 45-50%). 2) Severe septal hypokinesis and apical inferior hypokinesis present. 3) Normal right ventricular size with mildly to moderately reduced systolic function. 4) Marked biatrial enlargement. 5) Moderate to severe mitral regurgitation that is directed posteriorly. Mitral leaflet do not coapt well. 6) Moderate to severe tricuspid regurgitation. 7) Pulmonary hypertension present, estimated systolic pulmonary pressure of 50mmHg. 8) Dilated IVC suggested of elevated right sided filling pressures. 9) Mildly to moderately enlarged ascending aorta (diameter 4.2cm) and mildly enlarged aortic arch (diameter 3.3cm). 10) No prior Echo available for comparison. Other Diagnostics 07/26/2016 venous blood gas pH ____7.414 - 7.350 7.450 pCO2 ___41.8__ -mmHg 35.0 45.0 pO2 ___66.7__ -mmHg 69.0 116 HCO3- ___26.3__ -mmol/L 22.0 26.0 07/22/2016 04:45 pH ____7.404 - 7.350 7.450 pCO2 ___35.4__ -mmHg 35.0 45.0 pO2 101 -mmHg 69.0 116 HCO3- ___21.7__ -mmol/L 22.0 26.0 Brief History Mr. Sanchez is an 86-year-old gentleman with past medical history of hypertension, congestive heart failure, nephrolithiasis and atrial fibrillation (on anticoagulation) who presented [facility] via EMS secondary to worsening of dyspnea 2-3 days. At time of interview patient on BiPAP and unable to answer in short 1-2 word answers history of present illness obtained though patient as well as his , daughter and son-in-law all present in the room. Approximately 3 weeks prior to today's admission patient had a ground-level fall (trip and fall) in his home landing on the right side of his body did not strike his head did not lose consciousness, reports no significant injuries resulting from this fall at the time. The following morning patient was unable to get out of bed secondary to extreme neck, back and right sided abdominal/flank pain presumably from this fall. This gradually improved over the next few weeks though never completely dissipated. During this time patient became noncompliant with some of his medications most notably his Lasix (160 mg daily) as it would "make him P2 much " so he stopped taking these. He became progressively short of breath to the point where he was unable to walk more than 10 feet. Upon discovering this his restarted him on this medication approximately one week ago. Over the last 2-3 days he has become progressively short of breath on exertion as well as while at rest to the point where called EMS. He does not endorse a cough with the exception of a chronic cough after drinking liquids which has been present for some time now. He denies any fevers or sick contacts. Denies any headache, altered mental status denies, visual changes though endorses a left eye blurriness which has been present for some time. He does endorse shortness of breath upon exertion, right lower quadrant abdominal/flank pain right lower extremity pain and a right lower and upper extremity weakness. Family history: Mother passed secondary to call patient's from diabetes requiring multiple amputations as well as eventual intubation and ventilatory support prior to her . Father passed from myocardial infarction age 74. Sister passed from stroke 2 years ago. Social history: Prior smoker quit 50 years ago prior to that in approximately one pack per day. Drinks 1-2 drinks of alcohol whiskey/beer per day. Denies drug use. Exposures/travel/work history: Patient joined the [employer] at a young age working on a [employer] in [place] and the [facility]. He has worked in [place] in the [facility]. He endorses a tuberculosis exposure from his mother at age 11, requiring quarantine unsure if medications were administered. 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 Only pets have been cats and dogs though has lived around cows and horses. Last travel was 3 years ago to [place] with . Prior to that he does endorse traveling to the [facility] [place] of the country. Never has traveled outside of the country. He has gotten his flu shot this year and reports she thinks she is up-to-date with his pneumonia shots. In the [facility] emergency department patient received an ECG which showed no acute ischemia chest x-ray showed an enlarged heart. INR was found to be 8.5, d-dimer 0.51, glucose 183, creatinine 4.1, troponin 0.45, WBC 12, hemoglobin 6.3 hematocrit 21.8 and pro calcitonin 0.8. Prior to transfer to [facility] patient received DuoNeb's, vancomycin and gentamicin, and 1 unit of PRBCs with additional unit transfusing at time of admission. A comprehensive review of systems was conducted with the patient and found to be negative except as above in the history of present illness. Hospital Course Brief overview hospital course 86-year-old gentleman with past medical history of A. fib (on warfarin), CHF, hypertension, chronic kidney disease, pneumonia and probable COPD direct admit to CCU from [facility] emergency Department secondary to shortness of breath and acute blood loss anemia. He was restarted on diuretics and rate control orders with positive pressure ventilation via BiPAP which improved his respiratory status. His anemia was stabilized after therapeutic levels of INR were achieved. His CK D remains an issue and he will have to follow up with this as an outpatient. 1. CHF exacerbation with systolic dysfunction. - Most likely secondary to noncompliance with home medications - Continued home metoprolol 12.5 twice a day - Held home Enalapril due to TIFF and advanced CKD , amlodipine initially held secondary to hydrodynamic state - Continued home amlodipine 5 mg by mouth twice a day - Nephrology followed patient throughout her stay - Per nephrology started Torsemide 40mg am, 20mg pm and chlorthalidone 25 mg daily - CXR showed cardiomegaly - ECHO showed EF 45-50% with severe septal hypokinesis. Marked biatrial enlargement. Moderate to severe MR. Moderate to severe tricuspid regurgitation. Pulmonary hypertension. 2. Acute hypoxic respiratory failure. - Etiologies include pneumonia, obesity hypoventilation syndrome, undiagnosed COPD exacerbation ,CHF - weaned off BiPAP, maintaining saturations on room air - CXR showed possible bilateral multifocal pneumonia - DuoNeb's every 4H when necessary - Prednisone taper started 3. Suspicion for pneumonia - Etiologies include community acquired pneumonia as well as aspiration pneumonia - Appropriate cultures and serologies negative to date - Procalcitonin continues to trend down 0.67 from peak of 1.54 - Stop vancomycin secondary to negative MRSA screen - DC'd meropenem 4. Acute blood loss anemia - Source most likely GI on top of chronic kidney disease - INR supratherapudic on admit - s/p 10mg Vitamin K - INR normalized - 3 units PRBCs received in total - Warfarin, pharmacy to dose - Ultrasound - no free fluid - CT held secondary to #5 - Stool guaiacs positive - H&H remains anemic though stable 5. Chronic kidney disease. - Per interview patient "on the road to dialysis" - Nephrology following, we appreciate their recommendations - Diuretics as in # 1 - Renvela per nephrology - Bicarbonate, dosing per nephrology 6. Morbid obesity - BMI 44.5 - Encourage weight loss 7. Drug dependence. - Patient on oxycodone 10/325 twice a day secondary to chronic back pain 8. Hyperlipidemia, chronic. Present on admission. Ongoing - Lipid panel within normal limits - Continued home pravastatin 9. Depression, chronic. Present on admission. Ongoing - Continue home venlafaxine 10. Hyperglycemia. Present on admission. Ongoing - A1c 6.0 - Low-dose correctional scale 11. Atrial fibrillation, chronic. Present on admission. Ongoing - Pharmacy to dose warfarin 12. Peripheral neuropathy. Present on admission. Ongoing - Restarted at home gabapentin Exam Vital Signs (Last) Date Time Temp Pulse Resp B/P Pulse Ox O2 Delivery O2 Flow Rate FiO2 07/28/16 11:46 36.4 90 24 146/76 95 Room Air 07/25/16 07:56 3.00 07/24/16 08:53 25 Exam General: Obese male sitting in bedside chair, awake and alert and appropriately interactive without submental oxygen in place in no apparent distress. Ready to go home HEENT: Normocephalic, atraumatic. Anicteric sclerae, moist conjunctivae, and no lid lag. Oropharynx free of erythema with moist mucosa. Cardiovascular: Irregularly irregular rhythm, no murmurs rubs or gallops appreciated. Regular rate Pulmonary: Clear to auscultation bilaterally upper anterior lobes. No wheezes crackles or rhonchi appreciated. Normal respiratory effort with no use of accessory muscles Abdomen: Soft. No tenderness on palpation x 4 quadrants Extremities: Lower extremity edema resolved. SCDs no longer in place. Skin: Normal temperature, turgor, and texture Neurological: Cranial nerves grossly intact. Patient has known gait impairment, requiring the use of cane while walking. Psychiatric: Normal mood and affect. Alert and oriented to person, place, and time. Test 07/21/16 15:50 07/21/16 16:15 07/21/16 17:41 07/22/16 02:50 Hemoglobin A1c 6.0% (4.8-5.6) Lactic Acid Level 1.9mmol/L (0.4-2.0) Triglycerides Level 77mg/dL (0-149) Cholesterol Level 94mg/dL (100-199) LDL Cholesterol, Calculated 41.600mg/dL (0-99) VLDL Cholesterol 15.400mg/dL HDL Cholesterol 37mg/dL (>39) Cholesterol/HDL Ratio 2.54 (0.0-4.4) Lipase 121U/L (13-60) Vitamin D 25-Hydroxy 69.8ng/mL (30.0-100.0) Thyroid Stimulating Hormone (TSH) 1.370uIU/mL (0.450-4.500) TB Test (QFT) Gold In Tube Indeterminate (Negative) TB Test (QFT) Incubation Comment (.) TB Test (QFT) Mitogen 0.25IU/mL (.) TB Test (QFT) Antigen 0.04IU/mL (.) TB Test (QFT) Antigen Minus Nil <0.00IU/mL (.) TB Test (QFT) TB - Nil 0.06IU/mL (.) TB Test (QFT) Positive Criteria Comment (.) TB Test (QFT) Interpretation Comment (.) Urine Color Dark yellow (YELLOW) Urine Appearance Clear (CLEAR,HAZY) Urine pH 5.5 (5.0-8.0) Urine Specific [place] 1.025 (1.003-1.035) Urine Protein 100mg/dL (NEG,TRACE) Urine Glucose (UA) Negativemg/dL (NEGATIVE) Urine Ketones Negativemg/dL (NEGATIVE) Urine Occult Blood Trace (NEGATIVE) Urine Nitrite Negative (NEGATIVE) Urine Bilirubin Negative (NEGATIVE) Urine Urobilinogen Normalmg/dL (NORMAL) Urine Leukocyte Esterase Small (NEGATIVE) Urine RBC 3-10/hpf (0-2) Urine WBC 6-10/hpf (0-5) Urine Epithelial Cells Few/hpf (NONE-MOD) Urine Crystals None seen (NONE SEEN) Urine Bacteria None/hpf (NONE-FEW) Urine Hyaline Casts None/lpf (NONE) Urine Granular Casts None seen (NONE SEEN) Urine Waxy Casts None seen (NONE SEEN) Urine Red Blood Cell Casts None seen (NONE SEEN) Urine White Blood Cell Casts None seen (NONE SEEN) Urine Mucus Present (None Seen) Urine Trichomonas None seen (NONE SEEN) Urine Yeast None (NONE SEEN) Urine Culture Reflexed Indicated Urine Legionella pneumophilia Ag Negative (Negative) Uric Acid 7.6mg/dL (2.6-7.2) Iron Level 71ug/dL (35-150) Total Iron Binding Capacity 201ug/dL (250-450) Percent Iron Saturation 35%sat (15-50) Unsaturated Iron Binding 129.5ug/dL Globulin (PEP) 2.5g/dL (2.2-3.9) Albumin/Globulin Ratio 1.0 (0.7-1.7) Jpsld-2-Ltxzqupwg 0.4g/dL (0.0-0.4) Ibbce-8-Mmrjdtzzs 0.8g/dL (0.4-1.0) Beta Globulins 0.7g/dL (0.7-1.3) Gamma Globulins 0.5g/dL (0.4-1.8) Serum Monoclonal Protein Not observedg/dL Protein Electrophoresis Comment Comment (.) Protein Electrophoresis Interpret Comment (.) Parathyroid Hormone (Intact) 167pg/mL (15-65) Test 07/23/16 03:30 07/26/16 03:45 07/28/16 04:15 Phosphorus Level 5.5mg/dL (2.5-4.9) Magnesium Level 2.4mg/dL (1.6-2.6) White Blood Count 14.6th/mm3 (3.8-10.1) Red Blood Count 3.45mil/mm3 (4.40-5.80) Hemoglobin 9.5g/dL (13.8-17.2) Hematocrit 30.4% (41.0-50.0) Mean Corpuscular Volume 88.1fL (81-100) Mean Corpuscular Hemoglobin 27.5pg (27.0-35.0) Mean Corpuscular Hemoglobin Concent 31.3% (32.0-37.0) Red Cell Distribution Width 18.3% (12.3-15.4) Platelet Count 263bil/L (150-400) Neutrophils (%) (Auto) 79.3% (40-74) Lymphocytes (%) (Auto) 10.6% (14-46) Monocytes (%) (Auto) 8.6% (4-12) Eosinophils (%) (Auto) 0.1% (0-5) Basophils (%) (Auto) 0.1% (0-3) Prothrombin Time 25.8sec (8.1-12.5) Prothromb Time International Ratio 2.37ratio Sodium Level 141mEq/L (134-144) Potassium Level 4.1mEq/L (3.5-5.2) Chloride Level 102mEq/L (97-108) Carbon Dioxide Level 21mmol/L (18-29) Blood Urea Nitrogen 95mg/dL (8-27) Creatinine 3.32mg/dL (0.76-1.27) Estimat Glomerular Filtration Rate 19mL/min (>59) Glucose Level 189mg/dL (60-99) Calcium Level 8.5mg/dL (8.5-10.1) Total Bilirubin 0.3mg/dL (0.0-1.2) Aspartate Amino Transf (AST/SGOT) 28U/L (0-50) Alanine Aminotransferase (ALT/SGPT) 42U/L (0-44) Alkaline Phosphatase 63U/L (25-160) Total Protein 5.5g/dL (6.4-8.4) Albumin 2.6g/dL (3.4-5.0) Procalcitonin 0.45ng/mL (0.00-0.08) Microbiology Results All appropriate cultures and serologies negative to date Discharge Medications Discharge Medications Allopurinol (Allopurinol) 300 Mg Tablet 300 MG PO DAILY (Reported) Amlodipine (Amlodipine) 5 Mg Tablet 5 MG PO BID (Reported) Calcitriol (Rocaltrol) 0.25 Mcg Capsule 0.25 MCG PO HS (Reported) Chlorthalidone (Chlorthalidone) 25 Mg Tablet 25 MG PO DAILY Prescribed by: MATTHEW VALENTIN DO Cholecalciferol (Vitamin D3) (Vitamin D3) 1,000 Unit Tab.chew 1,000 UNIT PO DAILY (Reported) Enalapril Maleate (Enalapril Maleate) 20 Mg Tablet 20 MG PO BID (Reported) Ferrous Sulfate (Iron) 325 Mg Tablet 325 MG PO BID (Reported) Gabapentin (Gabapentin) 100 Mg Capsule 100 MG PO TID (Reported) Ipratropium/Albuterol Sulfate (Iprat-Albut 0.5-3(2.5) mg/3 mL Inhalant Soln) 3 Ml Ampul.neb 3 ML NEB QIDWA Prescribed by: MATTHEW VALENTIN DO Latanoprost (Latanoprost) 2.5 Ml Drops 1 GTT BOTH_EYES HS (Reported) Metoprolol Succinate ER (Metoprolol Succinate ER) 50 Mg Tab.er.24h 50 MG PO BID Prescribed by: MATTHEW VALENTIN DO Multivit-Min/FA/Lycopene/Lut (Senior Tabs) 0.4 Mg-300 Mcg-250 Mcg Tablet 1 EACH PO DAILY (Reported) Pravastatin (Pravastatin) 40 Mg Tablet 40 MG PO HS (Reported) Prednisone (PredniSONE) 10 Mg Tablet 10 MG PO DAILY Prescribed by: MATTHEW VALENTIN DO Prednisone (PredniSONE) 10 Mg Tablet 10 MG PO DAILY Prescribed by: MATTHEW VALENTIN DO Sevelamer Carbonate (Renvela) 800 Mg Tablet 800 MG PO TIDWM Prescribed by: MATTHEW VALENTIN DO Sodium Bicarbonate (Sodium Bicarbonate) 325 Mg Tablet 650 MG PO BID Prescribed by: MATTHEW VALENTIN DO Solifenacin Succinate (Vesicare) 5 Mg Tablet 5 MG PO HS (Reported) Timolol (Betimol) 5 Ml Drops 5 ML BOTH_EYES DAILY (Reported) Torsemide (Demadex) 20 Mg Tablet 40 MG PO DAILY Prescribed by: MATTHEW VALENTIN DO Torsemide (Demadex) 20 Mg Tablet 20 MG PO 18 Prescribed by: MATTHEW VALENTIN DO Ubidecarenone (Coenzyme Q10) 100 Mg Capsule 300 MG PO DAILY (Reported) Venlafaxine ER (Venlafaxine ER) 75 Mg Tab.er.24 75 MG PO DAILY (Reported) Warfarin Sodium (Warfarin Sodium) 5 Mg Tablet 5 MG PO M,T,Th,F (Reported) Warfarin Sodium (Warfarin Sodium) 2.5 Mg Tablet 2.5 MG PO W,S,S (Reported) As needed Clotrimazole/Betamethasone Dip (Lotrisone) 15 Gm Cream..g. 15 GM TOPICAL BID PRN PRN For Itching (Reported) oxyCODONE-Acetaminophen 10-325 mg (oxyCODONE-Acetaminophen 10-325 mg) 1 Each Tablet 1 TABLET PO BID PRN PRN For Pain Prescribed by: MATTHEW VALENTIN DO Additional med instructions Please continue to take all of your regularly prescribed medications in the regularly prescribed doses at the regularly prescribed intervals. With the exception of your metoprolol. Your home dose of metoprolol was 100 mg of metoprolol succinate ER by mouth twice a day. During your hospital stay. Heart rate was controlled with 12.5 mg by mouth twice a day. Your being discharged with half of your home dose to take twice a day. This means you are to take 50 mg tablet of metoprolol succinate ER by mouth twice a day. If you notice any heart palpitations dizziness visual disturbances chest pain or shortness of breath please notify your healthcare provider, return to the urgent care or the hospital immediately. I have stopped your diuretic medication furosemide. Other prescriptions you are being discharged with that are new include: 1. Renvela. You are to take an 800 mg tablet of this medication via mouth 3 times a day with meals. 2. Sodium bicarbonate. 650 mg by mouth twice a day 3. You will now take a new diuretic medication called torsemide. You are to take 40 mg of this medication by mouth in the morning. In the afternoon at approximately 3 PM you are to take an additional 20 mg of this medication by mouth. 4. I am giving you a prescription for more nebulizer treatments as you seem to a found benefit with these while in the hospital. Please take 1 nebulizer treatment as needed every 4 hours for shortness of breath or wheezing. 5. Per nephrology being prescribed a medication called chlorthalidone you are to take a 25 mg tablet of this medication by mouth every morning 6. You are also getting a prescription for prednisone, as you receive this medication while in the hospital is important that you do a taper of this steroid medication. You received a 30 mg dose on the day of discharge 2016, tomorrow 07/29/2016 you are to take 20 mg of this medication , the following day 07/30/2016 you are to take 20 mg of this medication by mouth, and then on 07/31/2016 you are to take 10 mg of this medication by mouth. Finally on 08/01/2016 you are to take 10 mg of this medication by mouth This will complete her prednisone taper Today, Sunday: 07/28/2016 - 30 mg prednisone given in hospital Tomorrow, Sunday: 07/29/2016- 20 mg prednisone by mouth Sunday: 07/30/2016- 20 mg prednisone by mouth Sunday: 07/31/2016- 10 mg prednisone by mouth Sunday: 08/01/2016 - 10 mg prednisone by mouth Followup Plan Disposition: Patient discharged to SNF in stable condition Follow-up plan Follow-up with her primary care doctor in the next 1-2 weeks, follow-up with central supply nurse Dr. Parikh in 3 weeks. Please call to schedule an appointment with Dr. Parihk at [facility] nephrology Department. Discharge Diet: Heart Healthy, Diabetic Discharge Activity: Limited until seen by PCP Patient Instructions Please follow-up with your primary care provider within the next week or two. You will need to see a central supply nurse in the next 2 weeks, this can either be your central supply nurse that you currently see at [facility] or you are welcome to see one of our nephrologists here at [facility]. Dr. Parikh would be happy to be your central supply nurse and it is very important that you follow up with Dr. Parikh in the next 2 weeks. Please get a basic metabolic profile in 3-4 days as the medications you have been started on may cause electrolyte disturbances Follow-up Provider: David Nascimento MD Follow-up with PCP in: 1 week Provider: David Parikh DO Follow-up in: 2 weeks copies to: David Parikh DO; Dago Puente DO; David Nascimento MD, GILES A DO Jul 28, 2016 15:36
== END 2016-07-28 12:58 | DRG 291 ==
LOC: CCU 11:57 → PCC 07-23 17:30
PROVIDERS: ADMIT Internal Medicine; ATTEND Internal Medicine
PROC: 5A09457 Assistance with Respiratory Ventilation, 24-96 Consecutive Hours, Continuous Positive Airway Pressure (ICD-10-PCS; principal; 2016-07-21)
PROC: 30233N1 Transfusion of Nonautologous Red Blood Cells into Peripheral Vein, Percutaneous Approach (ICD-10-PCS; 2016-07-21)
PROC: 4A033R1 Measurement of Arterial Saturation, Peripheral, Percutaneous Approach (ICD-10-PCS; 2016-07-22)
DX: I50.23 Acute on chronic systolic (congestive) heart failure (principal); J96.01 Acute respiratory failure with hypoxia; J69.0 Pneumonitis due to inhalation of food and vomit; D62 Acute posthemorrhagic anemia; F11.20 Opioid dependence, uncomplicated; Z68.41 Body mass index [BMI] 40.0-44.9, adult; I13.2 Hypertensive heart and chronic kidney disease with heart failure and with stage 5 chronic kidney disease, or end stage renal disease; N18.5 Chronic kidney disease, stage 5; E87.2 Acidosis; Z87.891 Personal history of nicotine dependence; I48.91 Unspecified atrial fibrillation; Z79.01 Long term (current) use of anticoagulants; T50.1X6A Underdosing of loop [high-ceiling] diuretics, initial encounter; Z91.128 Patient's intentional underdosing of medication regimen for other reason; E66.01 Morbid (severe) obesity due to excess calories; E78.5 Hyperlipidemia, unspecified; F32.9 Major depressive disorder, single episode, unspecified; R73.9 Hyperglycemia, unspecified; D63.1 Anemia in chronic kidney disease; Z77.090 Contact with and (suspected) exposure to asbestos; G62.9 Polyneuropathy, unspecified

== ENCOUNTER 2016-08-03 20:58 | Inpatient (IN) | payer MEDICARE ==
[~2016-08-03] VITALS: Ht 180.3 cm; Wt 92.1 kg
[~2016-08-03 20:58] MED LIST: ALLO300T2 PO; AMLO5TAB2 PO; CALC0.257 PO; CHOL10008 PO; CLOT15CR5 TOPICAL; ENAL20TA PO; FERR325T39 PO; GABA-500 PO; HYG25 PO; IPRA3AMP NEB; LATA2.5D6 BOTH_EYES; METO-272 PO; MULT-1083 PO; OXYC-466 PO; PRAV40TA PO; PRE10 PO; SEVE800T7 PO; SODI325T PO; SOLI5TAB2 PO; TIMO5DRO26 BOTH_EYES; TORS20TA PO; UBID100C PO; VENL75TA87 PO; WARF2.5T82 PO; WARF5TAB7 PO
[2016-08-03 21:08] VITALS: BP 114/48; PULSE 76; RESP 26; O2SAT 100
--- NOTE | 2016-08-03 21:13 | ED.REPORT ---
HPI-General Illness Date of Service Aug 03, 2016 ED Provider: Dr. Gale Patient is a demented 86 year old male with a history of atrial fibrillation on Coumadin, hypertension, hyperlipidemia, congestive heart failure, chronic kidney disease, and recent blood loss anemia presents to the ED via EMS with right side pain after he fell from bed just prior to arrival. Per EMS, he has a hematoma along the right side of his back, but did not have any other visible injuries. He was found by his family, with the fall unwitnessed. The patient states that he was "running away" and his admits that he sometimes gets out of bed unintentionally. Loss of consciousness is unknown. Patient states that it hurts "everywhere". The patient was seen her on 07/21/16 and admitted to the hospital with a diagnosis of congestive heart failure, pneumonia, and respiratory failure. During this hospital admission he received 3x units of blood, with the patient thought to be anemic due to his chronic kidney disease. However the ultimate cause of his bleeding was not identified. They deny any recent bloody/tarry stools. His most recent INR was 2.7 on July 28. Patient is unable to provide any history due to his dementia. Nursing Notes Stated Complaint: GROUND LEVEL FALL Chief Complaint: Multiple Trauma/Fall Nursing Notes Reviewed: Yes Allergies: Coded Allergies: No Known Allergies (Unverified , 07/21/16) Scheduled Allopurinol (Allopurinol) 300 Mg Tablet 300 MG PO DAILY Amlodipine (Amlodipine) 5 Mg Tablet 5 MG PO BID Calcitriol (Rocaltrol) 0.25 Mcg Capsule 0.25 MCG PO HS Chlorthalidone (Chlorthalidone) 25 Mg Tablet 25 MG PO DAILY Cholecalciferol (Vitamin D3) (Vitamin D3) 1,000 Unit Tab.chew 1,000 UNIT PO DAILY Enalapril Maleate (Enalapril Maleate) 20 Mg Tablet 20 MG PO BID Ferrous Sulfate (Iron) 325 Mg Tablet 325 MG PO BID Gabapentin (Gabapentin) 100 Mg Capsule 100 MG PO TID Ipratropium/Albuterol Sulfate (Iprat-Albut 0.5-3(2.5) mg/3 mL Inhalant Soln) 3 Ml Ampul.neb 3 ML NEB QIDWA Latanoprost (Latanoprost) 2.5 Ml Drops 1 GTT BOTH_EYES HS Metoprolol Succinate ER (Metoprolol Succinate ER) 50 Mg Tab.er.24h 50 MG PO BID Multivit-Min/FA/Lycopene/Lut (Senior Tabs) 0.4 Mg-300 Mcg-250 Mcg Tablet 1 EACH PO DAILY Pravastatin (Pravastatin) 40 Mg Tablet 40 MG PO HS Prednisone (PredniSONE) 10 Mg Tablet 10 MG PO DAILY Prednisone (PredniSONE) 10 Mg Tablet 10 MG PO DAILY Sevelamer Carbonate (Renvela) 800 Mg Tablet 800 MG PO TIDWM Sodium Bicarbonate (Sodium Bicarbonate) 325 Mg Tablet 650 MG PO BID Solifenacin Succinate (Vesicare) 5 Mg Tablet 5 MG PO HS Timolol (Betimol) 5 Ml Drops 5 ML BOTH_EYES DAILY Torsemide (Demadex) 20 Mg Tablet 40 MG PO DAILY Torsemide (Demadex) 20 Mg Tablet 20 MG PO 18 Ubidecarenone (Coenzyme Q10) 100 Mg Capsule 300 MG PO DAILY Venlafaxine ER (Venlafaxine ER) 75 Mg Tab.er.24 75 MG PO DAILY Warfarin Sodium (Warfarin Sodium) 5 Mg Tablet 5 MG PO M,T,Th,F Warfarin Sodium (Warfarin Sodium) 2.5 Mg Tablet 2.5 MG PO W,S,S Scheduled PRN Clotrimazole/Betamethasone Dip (Lotrisone) 15 Gm Cream..g. 15 GM TOPICAL BID PRN PRN For Itching oxyCODONE-Acetaminophen 10-325 mg (oxyCODONE-Acetaminophen 10-325 mg) 1 Each Tablet 1 TABLET PO BID PRN PRN For Pain General Time Seen by MD: 21:12 Chief Complaint Other (fall from bed) Hx Obtained From: Other family..., EMS Unable to Obtain Hx: Mental status (patient is unable to provide history) Arrived By: Ambulance Sudden in Onset?: Yes Onset Occurred: Just prior to arrival Symptom Duration: Since onset Caused by: Accidental Location: : Back Quality: Painful Severity: Current: Moderate Severity: Maximum: Moderate Recent Healthcare: Recent doctor visit, Recent hospitalization Similar Sx Previous: No Past Medical History Past Medical History Notes: Recent hospital admission for pneumonia, CHF, and respiratory failure (July 2016) Past Medical History dementia nephrolithiasis history of blood loss anemia chronic kidney disease peripheral neuropathy Reports: Congestive heart failure, Hyperlipidemia, Hypertension Reports: Atrial fibrillation, Depression, Morbid Obesity Past Surgical History TURP lithotripsy Reports: Back/neck surgery Family History Diabetes (mother) CAD (father passed from [place]) Smoking History Former Smoker (50 years ago) Social History Other Social History: Good social support, , Local resident Review of Systems + right side pain Unable to Obtain ROS Mental status (patient is unable to provide history, fall unwitnessed) Full Review of Systems GI: Denies: Bloody/tarry stool Physical Exam Vital Signs Vital Signs Date Time Temp Pulse Resp B/P Pulse Ox O2 Delivery O2 Flow Rate FiO2 08/03/16 23:54 64 9 106/39 100 Nasal Cannula 4 08/03/16 23:26 67 14 112/51 97 Nasal Cannula 4 08/03/16 23:04 67 10 88/33 99 Nasal Cannula 4 08/03/16 21:30 76 20 101/43 98 Nasal Cannula 4 08/03/16 21:08 36.7 76 26 114/48 100 Nasal Cannula 4 Initial VS: Reviewed Head / Eyes: Atraumatic, Normocephalic, PERRL Respiratory: Breath sounds normal, Clear to auscultation, No respiratory distress Cardiovascular: Regular rate & rhythm, Heart sounds normal Abdomen / GI: Soft, Non-tender, No guarding, No rebound Extremities: Vascular intact, Neuro intact Skin: Warm, Dry, No cyanosis General/Constitutional: Awake, Alert, No acute distress Appearance / Presentation: Positive: Pale Neck: Supple, Non-tender, No midline vertebral tend Back: Non-tender, No midline vertebral tend Trauma - General: Positive: Contusion Patch of ecchymosis from mid clavicle right to mid scapular right side. Extends from the rib margin to the iliac crest. No fluctuation nor tenderness. No central ball of blood. Upper Extremities Upper Extremity / MS: Atraumatic, Non-tender, No deformity Lower Extremity / Pelvis / MS: Atraumatic, Non-tender, No deformity Interpretation & Diagnostics Lab Results Interpretation Result Diagram: 08/04/16 0511 08/04/16 0511 Test 08/03/16 22:27 Corrected White Blood Count th/mm3 (3.8-10.1) Band Neutrophils % 0% (1-5) Magnesium Level 2.9mg/dL (1.6-2.6) Lipase 59U/L (13-60) Hold Arora Top Tube Received (Received) ECG Interpretation ECG Interpretation: Afib. with none specific ST t-wave laterally. Time: 21:58 Interpreted by: ED physician Normal ECG Interpretation: Normal rate (74) X-Ray Chest Interpretation Chest Xray Interpretation: IMPRESSION: No traumatic abnormalities seen AP supine chest. Heart is enlarged no evidence for failure. Right midlung field minimal patchy streaky disease probably residual infiltrate or atelectasis from earlier in the month. Pneumonia was prominent in the right chest on old x-rays. Dictated by: Aaron Rendon M.D. on 08/03/2016 at 22:08 Approved by: Aaron Rendon M.D. on 08/03/2016 at 22:11 Interpretation / Wet Read by: Interpret - Radiologist X-Ray Interpretation Xray Interpretation: IMPRESSION: No fracture of the pelvis or either hip is appreciated. Dictated by: Aaron Rendon M.D. on 08/03/2016 at 22:11 Approved by: Aaron Rendon M.D. on 08/03/2016 at 22:14 X-Ray Ordered: Pelvis Interpretation / Wet Read by: Interpret - Radiologist CT Head Interpretation IMPRESSION: No acute intracranial abnormality. Colloid cyst of the third ventricle is present. Hydrocephalus is not identified. Diffuse atrophic change and microvascular ischemic change of aging is present. Dictated by: Aaron Rendon M.D. on 08/03/2016 at 21:45 Approved by: Aaron Rendon M.D. on 08/03/2016 at 21:54 Study: Head CT no contrast Interpretation / Wet Read by: Interpret - Radiologist CT Abd / Pelvis Interpretation Impression: There is a right acute retroperitoneal hematoma and right acute psoas muscle hematoma measures 4 cm in greates dimensions. The psoas muscle hematoma measures 10 cm in greatest dimension. Radiologist: August Blandon M.D. Transmitted at 4277, 08/03/2016 to the Emergency room Study type: Abdominal CT no contrast Interpretation / Wet Read by: Interpret - Radiologist CT C-Spine Interpretation IMPRESSION: 1. No acute bony abnormality is found in the cervical spine. Dictated by: Aaron Rendon M.D. on 08/03/2016 at 21:54 Approved by: Aaron Rendon M.D. on 08/03/2016 at 21:57 Interpretation / Wet Read by: Wet read ED physician, Interpret - Radiologist Re-Eval/Medical Decision Med Decision/Clinical Course 86-year-old with dementia A. fib chronically on Coumadin and mostly bedbound, presents after a bed level fall. He has visible hematoma on his right flank. Hemoglobin was known to be low in the mid nine range, but was unexpectedly 5.[address] of his abdomen pelvis reveals a large psoas hematoma and retroperitoneal hematoma. No evidence of free fluid in the peritoneum. No evidence of liver or splenic injury. Discussed with surgery, who will see and consult this morning. He is grossly over anticoagulated with an INR of eleven. He was given vitamin K and K Centra, with normalization of his INR by this morning. Discussed the relative risks of Coumadin anticoagulation with the family at some length. Additional issues include elevated troponin, at least partly due to his chronic renal insufficiency. Creatinine has gone from the mid threes to the mid fives, but with a marked elevation of his BUNs in the setting of hypovolemia. Suspect this is prerenal azotemia superimposed on significant underlying chronic renal disease. Plan to transfuse, and trend as his volume improves. No symptomatic correlate to coronary disease, but he is very inarticulate demented man with limited ability to give a history. Time of Eval: 22:54 Re-Evaluation/Progress Note: Lab results have been discussed with the patients family as well as the need for a blood transfusion. The patients family was informed of the need to admit. They understand and agree with the plan. All questions have been answered at this time. Time of Eval: 23:59 Re-Evaluation/Progress Note: Informed the patient's family of the CT scan results. Consultation #1: Referral / Consult Name: Kanwal Santana MD Consulted With: Surgeon Call Returned at: 00:07 [employer] Sergeant: Will see patient, Agrees with eval, Agrees with plan Note: Spoke with Dr. Santana, surgeon, about the patient's case. She agrees to consult on the patient. Consultation #2: Referral / Consult Name: Rose Lamb DO Consulted With: Hospitalist Requested Call at: 00:11 Call Returned at: 02:35 [employer] Sergeant: Will see patient, Agrees with eval, Agrees with plan, Accepts admit Note: Spoke with Dr. Lamb, hospitalist, who agrees to accept admit. Counseled Regarding: Diagnosis, Lab results, Need for admission Discharge & Departure Primary Impression: Retroperitoneal hematoma Additional Impressions: Hematoma of muscle Anemia Anemia type: unspecified type Qualified Code: D64.9 - Anemia, unspecified Fall from bed Encounter type: initial encounter Qualified Code: W06.XXXA - Fall from bed, initial encounter Supratherapeutic INR Acute renal failure Acute renal failure type: unspecified Qualified Code: N17.9 - Acute kidney failure, unspecified Chronic renal failure Chronic kidney disease stage: stage 4 (severe) Qualified Code: N18.4 - Chronic kidney disease, stage 4 (severe) Disposition: ADMITTED TO HOSPITAL Referrals: David Nascimento MD (PCP) Crit Care Except Billable Proc Time Spent: 30-74 minutes (sixty minutes) Services Performed: Patient management by me, Time spent at bedside, Reviewing test results, Reviewing imaging, Discussing patient care, Documentation in record, Time with fam/surrogate Scribe Attestation Portions of this note were transcribed by Vikas Vera and Jami Vergara. I, Dr. Gale personally performed the history, physical exam and medical decision -making; I reviewed and confirmed the accuracy of the information in the transcribed note. Signed by: Dashawn Christine, 08/04/16 and 0519. copies to: David Nascimento MD, Christopher W MD Aug 03, 2016 21:13 Vikas Vera Aug 03, 2016 21:20 Jami Vergara Aug 04, 2016 00:44 present. Dictated by: Aaron Rendon M.D. on 08/03/2016 at 21:45 Approved by: Aaron Rendon M.D. on 08/03/2016 at 21:54 Study: Head CT no contrast Interpretation / Wet Read by: Interpret - Radiologist CT Abd / Pelvis Interpretation Impression: There is a right acute retroperitoneal hematoma and right acute psoas muscle hematoma measures 4 cm in greates dimensions. The psoas muscle hematoma measures 10 cm in greatest dimension. Radiologist: August Blandon M.D. Transmitted at 9180, 08/03/2016 to the Emergency room Study type: Abdominal CT no contrast Interpretation / Wet Read by: Interpret - Radiologist CT C-Spine Interpretation IMPRESSION: 1. No acute bony abnormality is found in the cervical spine. Dictated by: Aaron Rendon M.D. on 08/03/2016 at 21:54 Approved by: Aaron Rendon M.D. on 08/03/2016 at 21:57 Interpretation / Wet Read by: Wet read ED physician, Interpret - Radiologist Re-Eval/Medical Decision Time of Eval: 22:54 Re-Evaluation/Progress Note: Lab results have been discussed with the patients family as well as the need for a blood transfusion. The patients family was informed of the need to admit. They understand and agree with the plan. All questions have been answered at this time. Time of Eval: 23:59 Re-Evaluation/Progress Note: Informed the patient's family of the CT scan results. Consultation #1: Referral / Consult Name: Kanwal Santana MD Consulted With: Surgeon Call Returned at: 00:07 [employer] Sergeant: Will see patient, Agrees with eval, Agrees with plan Note: Spoke with Dr. Santana, surgeon, about the patient's case. She agrees to consult on the patient. Consultation #2: Referral / Consult Name: Rose Lamb DO Consulted With: Hospitalist Requested Call at: 00:11 Call Returned at: 02:35 [employer] Engineer Sergeant: Will see patient, Agrees with eval, Agrees with plan, Accepts admit Note: Spoke with Dr. Lamb, hospitalist, who agrees to accept admit. Counseled Regarding: Diagnosis, Lab results, Need for admission Discharge & Departure Primary Impression: Retroperitoneal hematoma Additional Impressions: Hematoma of muscle Anemia Anemia type: unspecified type Qualified Code: D64.9 - Anemia, unspecified Fall from bed Encounter type: initial encounter Qualified Code: W06.XXXA - Fall from bed, initial encounter Supratherapeutic INR Disposition: ADMITTED TO HOSPITAL Referrals: David Nascimento MD (PCP) Crit Care Except Billable Proc Time Spent: 30-74 minutes Services Performed: Patient management by me, Time spent at bedside, Reviewing test results, Reviewing imaging, Discussing patient care, Documentation in record, Time with fam/surrogate Scribe Attestation Portions of this note were transcribed by Vikas Vera and Jami Vergara. I, Dr. Gale personally performed the history, physical exam and medical decision -making; I reviewed and confirmed the accuracy of the information in the transcribed note. Signed by: Dashawn Christine, 08/04/16 and 0519. copies to: David Nascimento MD, Christopher W MD Aug 03, 2016 21:13 Vikas Vera Aug 03, 2016 21:20 Jami Vergara Aug 04, 2016 00:44
[2016-08-03 21:30] VITALS: BP 101/43; PULSE 76; RESP 20; O2SAT 98
--- NOTE | 2016-08-03 21:56 | DRSVH ---
PROCEDURE: CT BRAIN WITHOUT CONTRAST ([id number]) INDICATIONS: fall from bed, on coumadin TECHNIQUE: Noncontrast 4.5 mm thick angled axial sections acquired from the foramen magnum to the vertex, with c oronal reformats. COMPARISON: None. FINDINGS: Image quality: Excellent. CSF spaces: Basal cisterns are patent. No extra-axial fluid collections. The ventricles are symmet gigi in size and shape. Brain: No intracranial bleeds. There is a mass measuring 5 x 8 x 6 mm anterosuperiorly in the third ventricle. It is hyperdense and consistent with a colloid cyst. Hydrocephalus is not apparent. There is cerebral volume loss for age, with resultant ventricular and sulcal prominence. There are periven tricular and deep white matter chronic small vessel ischemic changes. There is intracranial internal carotid artery atherosclerosis. Skull and face: Calvarium and visualized facial bones appear intact, without suspicious lesions. Sinuses: Visualized sinuses and mastoids are clear. IMPRESSION: No acute intracranial abnormality. Colloid cyst of the third ventricle is present. Hydrocephalus is not identified. Diffuse atrophic change and microvascular ischemic change of aging is present. Dictated by: Aaron Rendon M.D. on 08/03/2016 at 21:45 Approved by: Aaron Rendon M.D. on 08/03/2016 at 21:54
--- NOTE | 2016-08-03 21:58 | DRSVH ---
PROCEDURE: CT CERVICAL SPINE WITHOUT CONTRAST ([id number]) INDICATIONS: fall from bed, on coumadin TECHNIQUE: Noncontrast 3 mm thick sections acquired from the skull base to the T4 level. Sagittal and coronal r eformats were then constructed. For radiation dose reduction, the following was used: automated exp osure control, adjustment of mA and/or kV according to patient size. COMPARISON: None. FINDINGS: Image quality: Good Bones: No fractures or dislocations. Visualized superior ribs are intact. Diffuse degenerative sotero nges are present in the disc spaces and facet joints. Soft tissues: Prevertebral soft tissues are normal in thickness. No paravertebral hematomas. No ap ical pneumothoraces. IMPRESSION: 1. No acute bony abnormality is found in the cervical spine. Dictated by: Aaron Rendon M.D. on 08/03/2016 at 21:54 Approved by: Aaron Rendon M.D. on 08/03/2016 at 21:57
--- NOTE | 2016-08-03 22:12 | DRSVH ---
PROCEDURE: X-RAY CHEST ONE VIEW, PORTABLE ([id number]) INDICATIONS: bed level fall TECHNIQUE: One view of the chest was acquired. COMPARISON: [facility], CR, XR CHEST 1VW (PORTABLE), 07/27/2016, 5:06. [facility], CR, XR CHEST 1VW (PORTABLE), 07/23/2016, 3:00. [facility], CR, XR CHEST 1VW (TEODORO BLE), 07/22/2016, 3:46. FINDINGS: Surgical changes and devices: sulky driver leads and oxygen tubing are seen over the chest. Lungs and pleura: No pneumothorax is seen. No pleural effusion is seen. There is some patchy streaky disease in the right midlung field probably residual atelectasis or infiltrate in early July. Lungs are otherwise clear. Mediastinum: Mediastinal contours appear normal. Heart size is enlarged. Bones and chest wall: No suspicious bony lesions. Overlying soft tissues appear unremarkable. IMPRESSION: No traumatic abnormalities seen AP supine chest. Heart is enlarged no evidence for failure. Right midlung field minimal patchy streaky disease probably residual infiltrate or atelectasis from [place] in the month. Pneumonia was prominent in the right chest on old x-rays. Dictated by: Aaron Rendon M.D. on 08/03/2016 at 22:08 Approved by: Aaron Rendon M.D. on 08/03/2016 at 22:11
--- NOTE | 2016-08-03 22:15 | DRSVH ---
PROCEDURE: X-RAY PELVIS WITH BILATERAL HIPS, 3 VIEWS INDICATIONS: bed level fall TECHNIQUE: AP pelvis with lateral view(s) of the both hip(s). COMPARISON: [facility], PATTI HOWELL, 01/04/2007, 8:01. FINDINGS: Bones: No fractures or dislocations. Pelvic ring appears intact. No suspicious bony lesions. Soft tissues: The visualized bowel gas pattern is normal. No suspicious soft tissue calcifications. Prostate calcifications are evident. IMPRESSION: No fracture of the pelvis or either hip is appreciated. Dictated by: Aaron Rendon M.D. on 08/03/2016 at 22:11 Approved by: Aaron Rendon M.D. on 08/03/2016 at 22:14
[2016-08-03 22:45] LABS: Mean Corpuscular Hemoglobin 29.4 pg (27.0-35.0); Mean Corpuscular Volume 92.6 fL (81-100)
[2016-08-03 22:46] LABS: BASOPHILS % (AUTO) 0.1 % (0-3); EOSINOPHILS % (AUTO) 3.7 % (0-5); MONOCYTES % (AUTO) 6.5 % (4-12); NEUTROPHILS % (AUTO) 79.6 % (40-74); Platelet Count 210 bil/L (150-400)
[2016-08-03 23:04] VITALS: BP 88/33; PULSE 67; RESP 10; O2SAT 99
[2016-08-03 23:18] LABS: Magnesium 2.9 mg/dL (1.6-2.6)
[2016-08-03 23:20] LABS: INR 11.35 ratio
[2016-08-03 23:22] LABS: TROPONIN T 0.187 ug/L (0.0-0.011)
[2016-08-03] MEDS ORDERED: Phytonadione (Adult) 10 mg/50 mL NS IV ONE ×2 (23:25)
[2016-08-03 23:26] VITALS: BP 112/51; PULSE 67; RESP 14; O2SAT 97
[2016-08-03] MEDS ORDERED: PROTHROMBIN COMPLEX IV ONE (23:35)
[2016-08-03 23:54] VITALS: BP 106/39; PULSE 64; RESP 9; O2SAT 100
[2016-08-04] VITALS (12 sets, daily range): BP systolic 104–126; BP diastolic 40–68; PULSE 65–83; RESP 9–20; O2SAT 92–95
[2016-08-04] MEDS ORDERED: Furosemide 10 mg/mL 10 mL Inj IVPUSH ONE (02:40)
[2016-08-04] MEDS ORDERED: Ondansetron 2 mg/mL 2 mL Inj IVPUSH PRN (02:40)
[2016-08-04] MEDS ORDERED: Polyethylene Glycol (PEG) 17 Gm Powder PO PRN (02:40)
[2016-08-04] MEDS ORDERED: Alum-Mag Hydrox-Simeth 30 mL Suspension PO PRN (02:40)
--- NOTE | 2016-08-04 03:22 | PCM.HPMED ---
Subjective Date of Service Aug 04, 2016 Primary Provider: Admitting Physician: Rose Lamb DO Primary Care Physician: David Nascimento MD Attending Physician: Rose Lamb DO Admit Status: From the Emergency Department Chief Complaint: fall History of Present Illness: 86yoM with past medical history of atrial fibrillation, HFrEF, HTN admitted after GLF with subsequent findings of INR >10, retroperitoneal and psoas hematoma and hgb of 5. Patient was found by family after a fall out of bed. As per ED fall was unwitnessed. Patient stated he was "running away" and that he sometimes gets out of bed unintentionally. Patient states that he hurts everywhere. On admission patient isn't able to give a history. He is somnolent and alert only to self. Recent admission from 07/21-07/28 where he was a direct admission from [facility] d/t respiratory failure secondary to CHF exacerbation on bipap with supratherapeutic INR and concern for hemorrhage vs anemia of chronic disease. He was treated for CHF exacerbation, probably COPD exacerbation, PNA, and acute blood loss anemia. Review of Systems: complete review of system obtained. positive as per hpi otherwise negative. Allergies Coded Allergies: No Known Allergies (Unverified , 07/21/16) Home Medications Per discharge med list on 07/28 Discharge Medications Allopurinol (Allopurinol) 300 Mg Tablet 300 MG PO DAILY (Reported) Amlodipine (Amlodipine) 5 Mg Tablet 5 MG PO BID (Reported) Calcitriol (Rocaltrol) 0.25 Mcg Capsule 0.25 MCG PO HS (Reported) Chlorthalidone (Chlorthalidone) 25 Mg Tablet 25 MG PO DAILY Prescribed by: MATTHEW VALENTIN DO Cholecalciferol (Vitamin D3) (Vitamin D3) 1,000 Unit Tab.chew 1,000 UNIT PO DAILY (Reported) Enalapril Maleate (Enalapril Maleate) 20 Mg Tablet 20 MG PO BID (Reported) Ferrous Sulfate (Iron) 325 Mg Tablet 325 MG PO BID (Reported) Gabapentin (Gabapentin) 100 Mg Capsule 100 MG PO TID (Reported) Ipratropium/Albuterol Sulfate (Iprat-Albut 0.5-3(2.5) mg/3 mL Inhalant Soln) 3 Ml Ampul.neb 3 ML NEB QIDWA Prescribed by: MATTHEW VALENTIN DO Latanoprost (Latanoprost) 2.5 Ml Drops 1 GTT BOTH_EYES HS (Reported) Metoprolol Succinate ER (Metoprolol Succinate ER) 50 Mg Tab.er.24h 50 MG PO BID Prescribed by: MATTHEW VALENTIN DO Multivit-Min/FA/Lycopene/Lut (Senior Tabs) 0.4 Mg-300 Mcg-250 Mcg Tablet 1 EACH PO DAILY (Reported) Pravastatin (Pravastatin) 40 Mg Tablet 40 MG PO HS (Reported) Prednisone (PredniSONE) 10 Mg Tablet 10 MG PO DAILY Prescribed by: MATTHEW VALENTIN DO Prednisone (PredniSONE) 10 Mg Tablet 10 MG PO DAILY Prescribed by: MATTHEW VALENTIN DO Sevelamer Carbonate (Renvela) 800 Mg Tablet 800 MG PO TIDWM Prescribed by: MATTHEW VALENTIN DO Sodium Bicarbonate (Sodium Bicarbonate) 325 Mg Tablet 650 MG PO BID Prescribed by: MATTHEW VALENTIN DO Solifenacin Succinate (Vesicare) 5 Mg Tablet 5 MG PO HS (Reported) Timolol (Betimol) 5 Ml Drops 5 ML BOTH_EYES DAILY (Reported) Torsemide (Demadex) 20 Mg Tablet 40 MG PO DAILY Prescribed by: MATTHEW VALENTIN DO Torsemide (Demadex) 20 Mg Tablet 20 MG PO 18 Prescribed by: MATTHEW VALENTIN DO Ubidecarenone (Coenzyme Q10) 100 Mg Capsule 300 MG PO DAILY (Reported) Venlafaxine ER (Venlafaxine ER) 75 Mg Tab.er.24 75 MG PO DAILY (Reported) Warfarin Sodium (Warfarin Sodium) 5 Mg Tablet 5 MG PO M,T,Th,F (Reported) Warfarin Sodium (Warfarin Sodium) 2.5 Mg Tablet 2.5 MG PO W,S,S (Reported) As needed Clotrimazole/Betamethasone Dip (Lotrisone) 15 Gm Cream..g. 15 GM TOPICAL BID PRN PRN For Itching (Reported) oxyCODONE-Acetaminophen 10-325 mg (oxyCODONE-Acetaminophen 10-325 mg) 1 Each Tablet 1 TABLET PO BID PRN PRN For Pain Prescribed by: MATTHEW VALENTIN DO PMH Atrial fibrillation on warfarin Congestive heart failure HFeEF Hypertension Nephrolithiasis Pneumonia Possible COPD Morbid obesity HLD Surgical History Back surgery Shoulder surgery Family History Diabetes (mother) CAD (father passed from [place]) Social History Hx Alcohol Use: Yes Hx Substance Use: No Hx Tobacco Use: Yes (see history of present illness) Smoking Status: Former Smoker (50 years ago) Exam Vital Signs Vital Sign - Last Date Time Temp Pulse Resp B/P Pulse Ox O2 Delivery O2 Flow Rate FiO2 08/04/16 02:51 36.6 68 11 108/55 Room Air 08/03/16 23:54 100 4 Intake and Output 08/03/16 08/03/16 08/04/16 Cumulative From/Thru 15:00 23:00 07:00 08/03/16 21:08 - 08/04/16 02:53 Intake Total 1011 ml 1011 ml Balance 1011 ml 1011 ml Intake IV Total 1011 ml 1011 ml Exam General: Not Alert, Oriented to self, Cooperative, No acute Distress Eyes: PERRLA, Scleral Anicteric Mouth: Mouth Normal, Mucous Membranes dry/Damar Neck: Supple, no Thyromegaly, trachea central. Chest & Lungs: decreased breathe sounds left lower Cardiovascular: Normal S1, Normal S2, distant, Irregular Rhythm, (unable to assess JVD, 3-4+ pitting edema) Pulses: Radial (present and equal), Dorsalis Pedi (present and equal) Abdomen: Soft, Non-tender, Non-distended, Normoactive bowel tones. Musculoskeletal: Unremarkable. Normal range of motion, no swollen or erythematous joints Extremities: 3-4+ pitting edema, no cyanosis, no clubbing. Skin: No rashes. Warm and dry, no erythematous areas Neurological: Grossly neurologically intact, Normal Speech, Sensation Intact Lymphatic: Lymph nodes Cervical and Axillary not palpable. Lab and Diagnostics Result Diagram: 08/03/16222608/03/162226 X-Rays, CTs and MRIs Per ED documentation ECG Interpretation ECG Interpretation: Afib. with none specific ST t-wave laterally. Time: 21:58 Interpreted by: ED physician Normal ECG Interpretation: Normal rate (74) X-Ray Chest Interpretation Chest Xray Interpretation: IMPRESSION: No traumatic abnormalities seen AP supine chest. Heart is enlarged no evidence for failure. Right midlung field minimal patchy streaky disease probably residual infiltrate or atelectasis from earlier in the month. Pneumonia was prominent in the right chest on old x-rays. Dictated by: Aaron Rendon M.D. on 08/03/2016 at 22:08 Approved by: Aaron Rendon M.D. on 08/03/2016 at 22:11 Interpretation / Wet Read by: Interpret - Radiologist X-Ray Interpretation Xray Interpretation: IMPRESSION: No fracture of the pelvis or either hip is appreciated. Dictated by: Aaron Rendon M.D. on 08/03/2016 at 22:11 Approved by: Aaron Rendon M.D. on 08/03/2016 at 22:14 X-Ray Ordered: Pelvis Interpretation / Wet Read by: Interpret - Radiologist CT Head Interpretation IMPRESSION: No acute intracranial abnormality. Colloid cyst of the third ventricle is present. Hydrocephalus is not identified. Diffuse atrophic change and microvascular ischemic change of aging is present. Dictated by: Aaron Rendon M.D. on 08/03/2016 at 21:45 Approved by: Aaron Rendon M.D. on 08/03/2016 at 21:54 Study: Head CT no contrast Interpretation / Wet Read by: Interpret - Radiologist CT Abd / Pelvis Interpretation Impression: There is a right acute retroperitoneal hematoma and right acute psoas muscle hematoma measures 4 cm in greates dimensions. The psoas muscle hematoma measures 10 cm in greatest dimension. Radiologist: August Blandon M.D. Transmitted at 4295, 08/03/2016 to the Emergency room Study type: Abdominal CT no contrast Interpretation / Wet Read by: Interpret - Radiologist CT C-Spine Interpretation IMPRESSION: 1. No acute bony abnormality is found in the cervical spine. Dictated by: Aaron Rendon M.D. on 08/03/2016 at 21:54 Approved by: Aaron Rendon M.D. on 08/03/2016 at 21:57 Interpretation / Wet Read by: Wet read ED physician, Interpret - Radiologist Assessment & Plan 86yoM with past medical history of atrial fibrillation, CHF, HTN admitted after GLF with subsequent findings of INR >10, retroperitoneal and psoas hematoma and hgb of 5. Acute blood loss anemia, acute, POA -secondary to GLF in the setting of supratherapeutic INR -3rd unit pRBC running during transfer to floor -repeat CBC pending - collected prior to completion of 3rd unit -2 units ordered to be held -q4HR H&H Acute on chronic renal failure, POA -likely prerenal -pending repeat CMP -Nephrology consult, recs appreciated SIRs, acute - elevated WBC, T 38.6 following admission -unclear source of infection -UA pending, possible PNA with recent admission and SNF -empiric treatment with piperacillin-tazobactam, MRSA screen pending Retroperitoneal hematoma -secondary to GLF -contact IR if H&H doesn't stabilize, repeat pending Hematoma psoas -secondary to GLF Supratherapeutic INR, acute -INR 11 on presentation -kcentra and vitamin K given -repeat INR pending Metabolic encephalopathy, acute, POA -2/2 uremia, acute blood loss anemia -CN intact, no focal deficit -CT negative Anasarca, unknown chronicity -a/w chf and arf -diurese when bp tolerates -pre-albumin pending -TSH and free T4 pending Elevated troponin -likely 2/2 acute renal dysfunction, no CP on admission, encephalopathic -no EKG with patient following admission -EKG stat Lower extremity edema asymmetric -concerning for DVT, R>L -lower extremity doppler US CHF decompensated, acute on chronic restart torsemide when bp tolerates restart metoprolol when bp tolerates Atrial fibrillation, chronic -restart beta kacey when BP tolerates -hold warfarin at this time. Not a candidate for anticoagulation on discharge. Pain Evaluation: Adequate Pain Control VTE Prophylaxis: SCDs Resuscitation Status: CPR: Attempt Resuscitation Rose Lamb DO Aug 04, 2016 03:22
--- NOTE | 2016-08-04 04:58 | NUR ---
Fentanyl Patch removed Patient arrived upon admit with 25mcg Fentanyl patch on right chest, dated 08/02/16. Patient's respirations 9-11/minute. Patch removed, verbally reported to MD. Addendum: 08/04/16 at 0614 by JAZZY SEARS RN Per MD order, Narcan administered to patient at 0530. Two doses, first was 0.2mg and second was 0.1mg for total of 0.3 mg. Patient became more alert- able to answer name, place, birthdate, [place] president, and was making sensible conversation. Close monitoring in place.
--- NOTE | 2016-08-04 05:17 | ABG ---
DateTimeAnalyzed 05:13:00 -_ pH ____7.326 - 7.350 7.450 pCO2 ___50.5__ -mmHg 35.0 45.0 pO2 ___69.5__ -mmHg 69.0 116 HCO3- ___25.7__ -mmol/L 22.0 26.0 ABE ____0.1__ -mmol/L -2.0 2.0 tHb ____7.8__ -g/dL O2Hb ___91.3__ -% COHb ____2.6__ -% MetHb ____1.1__ -% sO2 ___94.8__ -% 25.0 FIO2 ___32.0__ -% Drawn By LT - Date/Time Notified____ 05:16:00 -_ Notified By LT - Notified Whom DR SULLENBERGER - B 767 -mmHg tO2 ___10.1__ -Vol% Scooter test _Positive -
[2016-08-04 05:35] LABS: BASOPHILS % (AUTO) 0.1 % (0-3); MONOCYTES % (AUTO) 7.3 % (4-12); Mean Corpuscular Hemoglobin 27.6 pg (27.0-35.0); Mean Corpuscular Volume 88.8 fL (81-100); NEUTROPHILS % (AUTO) 78.1 % (40-74); Platelet Count 198 bil/L (150-400)
[2016-08-04 05:43] LABS: APPEARANCE,URINE HAZY (CLEAR,HAZY); COLOR,URINE STRAW (YELLOW); OCCULT BLOOD,URINE MODERATE (NEGATIVE); UROBILINOGEN,URINE NORMAL (NORMAL)
[2016-08-04 05:47] LABS: INR 1.18 ratio
--- NOTE | 2016-08-04 06:17 | NUR ---
Admit Patient admitted to room 3016 at 0320 from ED. Telemetry connected- A-fib 60-70's per tech. Patient very lethargic, RR 9-12 with assessments. Vital signs stable, otherwise. On 1-2L oxygen via [place], saturations 95-100%. Unit 3 of 3 PRBC's infused after admit, first 2 were given in ED. Patient follows commands, but is intermittently difficult to arouse. PUP started for Rojelio score of 10, already on P500 bed. Bed alarm and Jonnie alarm in place. Patient oriented to plan, white board updated. Med List not entered-will pass on to day RN. Med list from [facility] is in paper chart. Addendum: 08/04/16 at 0642 by AMY COELHO RN 0630: oral mucosa is very dry, tongue is coated w/ thick dry brown gunk. tolerated oral care w/ toothettes, able to loosen up some of the gunk so he could swallow secretions easier. face and mouth/lips washed gently w/ warm washcloth, chapstick applied. continues w/ NPO status.
--- NOTE | 2016-08-04 07:25 | PCM.PNMED ---
Subjective Date of Service Aug 04, 2016 Exam Vital Signs Vital Sign - Last Date Time Temp Pulse Resp B/P Pulse Ox O2 Delivery O2 Flow Rate FiO2 08/04/16 06:05 36.4 67 16 104/67 95 Nasal Cannula 2.00 Intake and Output 08/03/16 08/03/16 08/04/16 Cumulative From/Thru 15:00 23:00 07:00 08/03/16 21:08 - 08/04/16 06:50 Intake Total 1336 ml 1336 ml Output Total 550 ml 550 ml Balance 786 ml 786 ml Intake Oral 0 ml 0 ml IV Total 1061 ml 1061 ml Packed Cells 275 ml 275 ml Output Urine Total 550 ml 550 ml Lab and Diagnostics overnight/ admitted fell out of bed recurrent inr 11/right retroperitoneal hematoma, 3U RBC, k centra, narcan improved narcosis, 7.3 pCO 51, contact precautions O/ 2L O2 awakens to voice, mumbling speech RRR no m/r/g CTAB anterior bilateral punch hand strength intact soft + BS right ecchymosis 2+ edema legs sparks clear > 300cc Result Diagram: 08/04/16 0511 08/04/16 0511 X-Rays, CTs and MRIs Per ED documentation ECG Interpretation ECG Interpretation: Afib. with none specific ST t-wave laterally. Time: 21:58 Interpreted by: ED physician Normal ECG Interpretation: Normal rate (74) X-Ray Chest Interpretation Chest Xray Interpretation: IMPRESSION: No traumatic abnormalities seen AP supine chest. Heart is enlarged no evidence for failure. Right midlung field minimal patchy streaky disease probably residual infiltrate or atelectasis from earlier in the month. Pneumonia was prominent in the right chest on old x-rays. Dictated by: Aaron Rendon M.D. on 08/03/2016 at 22:08 Approved by: Aaron Rendon M.D. on 08/03/2016 at 22:11 Interpretation / Wet Read by: Interpret - Radiologist X-Ray Interpretation Xray Interpretation: IMPRESSION: No fracture of the pelvis or either hip is appreciated. Dictated by: Aaron Rendon M.D. on 08/03/2016 at 22:11 Approved by: Aaron Rendon M.D. on 08/03/2016 at 22:14 X-Ray Ordered: Pelvis Interpretation / Wet Read by: Interpret - Radiologist CT Head Interpretation IMPRESSION: No acute intracranial abnormality. Colloid cyst of the third ventricle is present. Hydrocephalus is not identified. Diffuse atrophic change and microvascular ischemic change of aging is present. Dictated by: Aaron Rendon M.D. on 08/03/2016 at 21:45 Approved by: Aaron Rendon M.D. on 08/03/2016 at 21:54 Study: Head CT no contrast Interpretation / Wet Read by: Interpret - Radiologist CT Abd / Pelvis Interpretation Impression: There is a right acute retroperitoneal hematoma and right acute psoas muscle hematoma measures 4 cm in greates dimensions. The psoas muscle hematoma measures 10 cm in greatest dimension. Radiologist: August Blandon M.D. Transmitted at 2355, 08/03/2016 to the Emergency room Study type: Abdominal CT no contrast Interpretation / Wet Read by: Interpret - Radiologist CT C-Spine Interpretation IMPRESSION: 1. No acute bony abnormality is found in the cervical spine. Dictated by: Aaron Rendon M.D. on 08/03/2016 at 21:54 Approved by: Aaron Rendon M.D. on 08/03/2016 at 21:57 Interpretation / Wet Read by: Wet read ED physician, Interpret - Radiologist Assessment & Plan 86yoM with atrial fibrillation/CHF, admitted after GLF with recurrent INR >10, retroperitoneal and psoas hematoma and hgb of 5, somnolence improved w/ narcan, TIFF. Acute blood loss anemia, acute, POA -secondary to GLF in the setting of supratherapeutic INR -3U RBC kcentral -2 units ordered to be held -q4HR H&H Acute on chronic renal failure, POA -likely prerenal --HOLD ACEI AND CHLORTHALIDONE -Nephrology consult, recs appreciated SIRs, acute - elevated WBC, T 38.6 following admission -unclear source of infection -UA neg, CXR neg -empiric treatment with piperacillin-tazobactam, MRSA screen pending Retroperitoneal hematoma -secondary to GLF --appreciate gen surg/Dr. Santos العلي -contact IR if H&H doesn't stabilize, q12 HOURS Hematoma psoas -secondary to GLF Supratherapeutic INR, acute - RESOLVED -INR 11 on presentation -kcentra and vitamin K given -repeat INR QAM --ANTICIPATE ASA FOR AFIB ON DISCHARGE Metabolic encephalopathy, acute, POA -2/2 uremia, acute blood loss anemia -CN intact, no focal deficit -CT negative Anasarca, unknown chronicity -a/w chf and arf, WT UNCHANGED -diurese when bp tolerates -TSH and free T4 NORMAL Elevated troponin, resolving -likely 2/2 acute renal dysfunction, no CP on admission, encephalopathic -no EKG with patient following admission -EKG stat Lower extremity edema asymmetric -concerning for DVT, R>L -lower extremity doppler US CHF decompensated, acute on chronic wt unchanged 101.4kg from 2 weeks ago restart torsemide / metoprolol when bp tolerates Atrial fibrillation, chronic -restart beta kacey when BP tolerates -hold warfarin. Not a candidate for anticoagulation on discharge. Dispo eventually return to his snf VTE Prophylaxis: SCDs Resuscitation Status: CPR: Attempt Resuscitation Sahara Canales MD Aug 04, 2016 07:25
[2016-08-04] MEDS ORDERED: Venlafaxine XR 75 mg ER24 Capsule PO ONE (07:30)
[2016-08-04] MEDS ORDERED: Calcium GLUCO 10% (mEq) Inj 4.65 MEQ in Dextrose 5% 50 ML IV ONE (08:05)
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
[2016-08-04] MEDS ORDERED: OXYC-466 PO (08:59)
[2016-08-04] MEDS ORDERED: MAGN400O4 PO (09:03)
[2016-08-04] MEDS ORDERED: BISA10SU61 RC (09:04)
[2016-08-04] MEDS ORDERED: ACET325T51 PO (09:06)
[2016-08-04] MEDS ORDERED: IPRA3AMP IH (09:11)
[2016-08-04] MEDS ORDERED: MULT-620 PO (09:12)
[2016-08-04] MEDS ORDERED: UBID30CA12 PO (09:13)
[2016-08-04] MEDS ORDERED: TORS20TA3 PO ×2 (09:15→09:20)
[2016-08-04] MEDS ORDERED: METO-272 PO (09:16)
[2016-08-04] MEDS ORDERED: SEVE800T7 PO (09:18)
[2016-08-04] MEDS ORDERED: SODI650T PO (09:19)
[2016-08-04] MEDS ORDERED: HYG25 PO (09:19)
[2016-08-04] MEDS ORDERED: FENT1PAT7 TRANSDERM (09:22)
[2016-08-04] MEDS ORDERED: AZIT500T5 PO (09:23)
[2016-08-04] MEDS ORDERED: CEFT1VIA6 IM (09:24)
--- NOTE | 2016-08-04 09:24 | DRSVH ---
PROCEDURE: US VENOUS LEG DUPLEX BILATERAL INDICATIONS: Right leg swelling. TECHNIQUE: Real-time imaging, as well as color and pulse Doppler interrogation, were performed of the deep veins of both legs from the inguinal ligament to the popliteal fossa. COMPARISON: None. FINDINGS: The deep veins are normally compressible, and free of intraluminal thrombus. Color and pu lse Doppler demonstrate normal phasic intravascular flow. There is normal augmentation response to d istal compression maneuver. IMPRESSION: 1. No evidence of deep venous thrombosis in the right or left lower extremity. Dictated by: Malcom Phan M.D. on 08/04/2016 at 9:18 Approved by: Malcom Phan M.D. on 08/04/2016 at 9:22
--- NOTE | 2016-08-04 09:45 | DRSVH ---
PROCEDURE: CT ABDOMEN AND PELVIS WITHOUT CONTRAST ([id number]) INDICATIONS: 86 year-old man with fall. TECHNIQUE: Noncontrast 5 mm thick sections acquired from the diaphragms to the symphysis. 5 mm coronal and sagi ttal reformats were then performed. For radiation dose reduction, the following was used: automated exposure control, adjustment of mA and/or kV according to patient size. COMPARISON: None. FINDINGS: Image quality: Excellent. ABDOMEN: Lung bases: There is a small right pleural effusion with bibasilar consolidation or atelectasis. He art size is moderately increased. Solid organs: Liver and spleen are normal in size. Gallbladder is normal. Pancreas is normal in co ntours. No adrenal nodules. Kidneys are small in size, without hydronephrosis or nephrolithiasis. Peritoneum and bowel: Unenhanced bowel loops demonstrate normal wall thickness and caliber. There a re scattered colonic diverticula. No evidence for active diverticulitis. No free fluid or air. Nodes and vessels: No retroperitoneal or mesenteric adenopathy by size criteria. Aorta and inferior vena cava are normal in caliber. Aortic and iliac artery calcification consistent with atherosclero sis. Miscellaneous: There is a large retroperitoneal hematoma involving the right psoas muscle measuring 9.7 cm anterior-posterior, 13.2 cm transverse, and 16.1 cm craniocaudal. A 4.6 cm soft tissue nodule posterior to the large hematoma is seen, also likely a hematoma. There is subcutaneous soft tissue st randing and edema in flanks bilaterally. PELVIS: Genitourinary: Bladder wall thickness is normal. Miscellaneous: No inguinal hernias or adenopathy. Bones: No suspicious bony lesions. No vertebral body compression fractures. Severe degenerative ch anges in lumbar spine. IMPRESSION: 1. A large retroperitoneal hematoma involving the psoas muscle measuring 9.7 x 13.2 x 16.1 cm. A smal ler 4.6 cm hematoma is seen just posterior to the large sores hematoma. 2. Bilateral flank soft tissue contusion. 3. Small right pleural effusion with right basilar consolidation or atelectasis. 4. Bilateral renal atrophy. No hydronephrosis. 5. Diverticulosis. No active diverticulitis. 6. Moderate to severe atherosclerosis. 7. Moderate cardiomegaly 8. Severe degenerative changes in lumbar spine. No significant discrepancy with the night coordinator radiology preliminary report. Dictated by: Nicole Good M.D. on 08/04/2016 at 9:34 Transcribed by: STAN on 08/04/2016 at 9:44 Approved by: Nicole Good M.D. on 08/04/2016 at 21:59
[2016-08-04] MEDS ORDERED: OXYB5TAB10 PO (10:35)
[2016-08-04] MEDS: Piperacillin-Tazo 3.375 Gm Inj 3.375 GM in Dextrose 5% Minibag Plus 50 ML IV SCH ×2 (10:50→21:08)
[2016-08-04] MEDS: MeTOProlol XL 50 mg ER24 Tablet PO SCH ×2 (10:51→21:08)
[2016-08-04] MEDS: Timolol 0.5% 5 mL Ophthalmic Solution BOTH_EYES SCH (10:52)
--- NOTE | 2016-08-04 12:25 | NUR ---
Oxygen/cares Pt taken off oxygen d/t sustaining on RA at 93-94%. Pt resting in bed. Tolerating Q2hr turns well. Family at bedside.
[2016-08-04] MEDS: 0.9% Sodium Chloride 1,000 ML IV SCH (12:55)
--- NOTE | 2016-08-04 14:11 | NUR ---
spiritual care: family request brief caring visit with prayer. pt sleepy, family at bedside, supportive.
--- NOTE | 2016-08-04 15:08 | NUR ---
Wound Care Pressure ulcer protocol received patient seen at bedside with nursing. 86 yo male admitted to [facility] 08/03 after falling out of bed at home, patient is a demented male lying in bed pleasantly. Pt currently has no pressure related skin issues, he does have a large area of ecchymosis at his right flank from his fall out of bed, due to patients dementia he will probably need frequent repositioning as bed mobility is going to be limited in terms of his own initiation of it.
[2016-08-04] MEDS ORDERED: Darbepoetin Alfa 60 mCg/0.3 mL Inj SUBQ ONE (17:15)
[2016-08-04] MEDS ORDERED: Furosemide 10 mg/mL 4 mL Inj IVPUSH ONE (18:00)
[2016-08-05] VITALS (9 sets, daily range): BP systolic 112–134; BP diastolic 55–67; PULSE 73–88; RESP 16–20; O2SAT 90–97
[2016-08-05 05:39] LABS: Mean Corpuscular Hemoglobin 27.5 pg (27.0-35.0); Mean Corpuscular Volume 88.8 fL (81-100)
[2016-08-05 05:52] LABS: INR 1.18 ratio
--- NOTE | 2016-08-05 06:04 | NUR ---
[employer] Pt was confused while awake over the shift, making nonsensical statements and requiring frequent re-orientation. Pt slept most of shift and would occasionally talk in his sleep as well as tossing a turning frequently
[2016-08-05 06:16] LABS: Phosphorus 8.7 mg/dL (2.5-4.9)
[2016-08-05 06:27] LABS: TROPONIN T 0.133 ug/L (0.0-0.011)
[2016-08-05] MEDS: Timolol 0.5% 5 mL Ophthalmic Solution BOTH_EYES SCH (08:57)
[2016-08-05] MEDS: Piperacillin-Tazo 3.375 Gm Inj 3.375 GM in Dextrose 5% Minibag Plus 50 ML IV SCH ×2 (09:00→21:07)
[2016-08-05] MEDS: MeTOProlol XL 50 mg ER24 Tablet PO SCH ×2 (09:00→21:09)
--- NOTE | 2016-08-05 11:09 | CONS ---
[address] [address] CONSULTATION REPORT PATIENT: ROLA GILLESPIE : 1930 MR#: [id number] ADMIT: 08/04/2016 JOB ID: [id number] DATE OF SERVICE: 08/05/2016 NEPHROLOGY CONSULTATION: REQUESTING PHYSICIAN: Sahara Canales MD REASON FOR CONSULTATION: Management of abnormal kidney function. CHIEF COMPLAINT: Status post fall. PRESENT ILLNESS: This is a 76-year-old male with a significant past medical history of chronic kidney disease stage 4, heart failure, hypertension, nephrolithiasis, atrial fibrillation, who presented to the hospital after the ground level fall. There is no family member available at the moment. The patient now is being fed by the CLINICAL AUDITOR. He is not able to provide me any meaningful history. I have gathered history from the medical record. Apparently, the patient was found down by his family members after a ground level fall. There was no witness at that time. He reports hurting all over. The patient came to the hospital for further investigation. Unfortunately he was found to have supratherapeutic INR with the level of 11.35. The initial hemoglobin was 5.5. The abdominal and pelvic CT showed a large retroperitoneal hematoma involving the right psoas muscle measuring 9.7 cm x 13.2 cm x 16.1 cm. The patient received blood transfusion, IV vitamin K and prothrombin complex concentration. His current hemoglobin is 7.6. Current INR is 1.18. His blood pressure has been stable throughout the night. The patient was found to have temperature a day before as well as leukocytosis was noted. He was started on IV Zosyn empirically. The patient was recently admitted at the [facility] due to CHF exacerbation. He was evaluated by my partner, Dr. Parikh. His initial serum creatinine at that time was 4.05 and went down to 3.32 on the day of discharge, July 28, 2016. The patient was also evaluated by a construction equipment operator in [place] at [facility]. Seems like he has a history of chronic kidney disease stage 5 related to hypertension. During this admission, his initial BUN and creatinine were 131 and 5.19 respectively. After the fluid resuscitation and some IV diuretics, his current BUN is 120 and creatinine is 4.95. The patient reports feeling comfortable. He is not in pain. He has no chest pain. No shortness of breath at the moment. PAST MEDICAL HISTORY: 1. Chronic kidney disease stage 5, followed by the construction equipment operator in [facility]. 2. Chronic atrial fibrillation on anticoagulant. 3. Congestive heart failure. 4. Hypertension with hypertensive nephrosclerosis. 5. Nephrolithiasis. 6. Obesity. 7. Dyslipidemia. 8. Possible COPD. PAST SURGICAL HISTORY: 1. Back surgery. 2. Shoulder surgery. FAMILY HISTORY: Positive for diabetes and coronary artery disease in the family. SOCIAL HISTORY: The patient is a former smoker. MEDICATIONS: Reviewed. ALLERGIES: No known drug allergies. PHYSICAL EXAMINATION: Vitals: Temperature 36.9, pulse 85, respiratory rate 18, blood pressure 120/67, O2 sat 90% on room air. General appearance: Awake, oriented only to self. In no acute distress. Not tachypneic. HEENT: Mild pallor. No jaundice. No JVD. No lymphadenopathy. No thyroid enlargement. Heart: Irregular rhythm. Normal S1, S2. No significant murmur. Lungs: Decreased breath sounds at bases. No wheezing. No rhonchi. Abdomen: Soft, mild distended, active bowel sounds. Positive pitting edema on the abdominal wall. Extremities: 1+ edema on the right lower extremity and no edema on the left lower extremity. Positive for sacral swelling. LABORATORY: Sodium 144, potassium 3.8, chloride 100, bicarbonate 22, BUN 120, creatinine 4.95. Glucose 138, calcium 7.5, phosphorus 8.7, albumin 2.8, PTH 360. Lower extremity Doppler showed no evidence of DVT of the right or left lower extremity. CT abdomen and pelvis showed a large retroperitoneal hematoma involving the right psoas muscle measuring 9.7 x 13.2 x 16.1 cm, bilateral renal atrophy. No hydronephrosis. [id number] atherosclerosis, moderate cardiomegaly, severe degenerative changes in the lumbar spine. ASSESSMENT: 1. Acute kidney injury on chronic kidney disease secondary to prerenal azotemia due to severe anemia in the setting of congestive heart failure. I agreed with the primary team to hold CLAUDIA inhibitor. It seems like renal replacement therapy will be required in the very near future. Unfortunately given multiple comorbidities, he might not be an excellent candidate for dialysis. However, I will discuss with the family in terms of overall goals of care. Nonetheless he does not require urgent dialysis at the moment. We will continue to monitor closely. 2. Supratherapeutic INR. 3. Retroperitoneal hematoma. 4. Systemic inflammatory response syndrome (SIRS). 5. History of atrial fibrillation, taking anticoagulant. 6. History of congestive heart failure. 7. Secondary hyperparathyroidism. PLAN: Will continue supportive treatment for now. We will give him another dose of the IV Lasix 40 mg x1. Aranesp was delivered last night without complications. Will discuss with the family in terms of goals of care. Thank you for the consultation. We will monitor along with you. GAYE
[2016-08-05] MEDS ORDERED: Furosemide 10 mg/mL 4 mL Inj IVPUSH ONE (12:00)
--- NOTE | 2016-08-05 13:22 | PROG NOTE ---
[address] [address] PROGRESS NOTE PATIENT: ROLA GILLESPIE : 1930 MR#: [id number] ADMIT: 08/04/2016 JOB ID: [id number] DATE: 08/05/2016 SUBJECTIVE: The patient is seen in followup. He had a ground level fall and was in the setting of hyper anticoagulation with an INR of 11.35. He has developed a large right psoas hematoma. The patient is having no pain. He is hemodynamically stable. PAST MEDICAL HISTORY: 1. Atrial fibrillation. 2. Anticoagulation status. 3. Congestive heart failure. 4. Hypertension. 5. Stage 5 chronic renal failure. 6. COPD. 7. Obesity. REVIEW OF SYSTEMS: No pain. PHYSICAL EXAMINATION: The patient in his room surrounded by family. He looks comfortable. No distress. Temperature 36.9, brachial blood pressure 120/67, pulse 85, respiratory rate 16, O2 sat room air 90%. LABORATORY RESULTS: White blood cell count 12.7, hematocrit 24.5, platelet count 183,000. Last INR this morning 1.18. Creatinine 4.95, potassium is 3.8. CT scan is personally reviewed by myself showing his large right psoas hematoma. IMPRESSION: Large right psoas hematoma from a ground level fall in the setting of supratherapeutic anticoagulation on warfarin. RECOMMENDATIONS: There is no need for surgical intervention. I will be signing off and if you need further surgical advice or evaluation please reconsult our team.
--- NOTE | 2016-08-05 13:50 | PCM.PNMED ---
Subjective Date of Service Aug 05, 2016 Exam Vital Signs Vital Sign - Last Date Time Temp Pulse Resp B/P Pulse Ox O2 Delivery O2 Flow Rate FiO2 08/05/16 10:02 36.9 85 16 120/67 90 Room Air 08/04/16 06:05 2.00 Intake and Output 08/04/16 08/04/16 08/05/16 Cumulative From/Thru 15:00 23:00 07:00 08/03/16 21:08 - 08/05/16 06:52 Intake Total 537 ml 0 ml 1873 ml Output Total 1750 ml 1475 ml 3775 ml Balance -1213 ml -1475 ml -1902 ml Intake Oral 200 ml 0 ml 200 ml IV Total 337 ml 1398 ml Packed Cells 275 ml Output Urine Total 1750 ml 1475 ml 3775 ml Lab and Diagnostics Result Diagram: 08/05/16 0528 08/05/16527 X-Rays, CTs and MRIs Per ED documentation ECG Interpretation ECG Interpretation: Afib. with none specific ST t-wave laterally. Time: 21:58 Interpreted by: ED physician Normal ECG Interpretation: Normal rate (74) X-Ray Chest Interpretation Chest Xray Interpretation: IMPRESSION: No traumatic abnormalities seen AP supine chest. Heart is enlarged no evidence for failure. Right midlung field minimal patchy streaky disease probably residual infiltrate or atelectasis from earlier in the month. Pneumonia was prominent in the right chest on old x-rays. Dictated by: Aaron Rendon M.D. on 08/03/2016 at 22:08 Approved by: Aaron Rendon M.D. on 08/03/2016 at 22:11 Interpretation / Wet Read by: Interpret - Radiologist X-Ray Interpretation Xray Interpretation: IMPRESSION: No fracture of the pelvis or either hip is appreciated. Dictated by: Aaron Rendon M.D. on 08/03/2016 at 22:11 Approved by: Aaron Rendon M.D. on 08/03/2016 at 22:14 X-Ray Ordered: Pelvis Interpretation / Wet Read by: Interpret - Radiologist CT Head Interpretation IMPRESSION: No acute intracranial abnormality. Colloid cyst of the third ventricle is present. Hydrocephalus is not identified. Diffuse atrophic change and microvascular ischemic change of aging is present. Dictated by: Aaron Rendon M.D. on 08/03/2016 at 21:45 Approved by: Aaron Rendon M.D. on 08/03/2016 at 21:54 Study: Head CT no contrast Interpretation / Wet Read by: Interpret - Radiologist CT Abd / Pelvis Interpretation Impression: There is a right acute retroperitoneal hematoma and right acute psoas muscle hematoma measures 4 cm in greates dimensions. The psoas muscle hematoma measures 10 cm in greatest dimension. Radiologist: August Blandon M.D. Transmitted at 2355, 08/03/2016 to the Emergency room Study type: Abdominal CT no contrast Interpretation / Wet Read by: Interpret - Radiologist CT C-Spine Interpretation IMPRESSION: 1. No acute bony abnormality is found in the cervical spine. Dictated by: Aaron Rendon M.D. on 08/03/2016 at 21:54 Approved by: Aaron Rendon M.D. on 08/03/2016 at 21:57 Interpretation / Wet Read by: Wet read ED physician, Interpret - Radiologist Assessment & Plan 08/04- admitted fell out of bed recurrent inr 11/right retroperitoneal hematoma, 3U RBC, k centra, narcan improved narcosis, 7.3 pCO 51, contact precautions o/n confused restless,. 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 DC zosyn for SIRS after procalcitonin is neg Acute blood loss anemia, acute, POA -secondary to GLF in the setting of supratherapeutic INR -3U RBC kcentra -2 units ordered to be held -qd H&H Acute on chronic renal failureV, POA -likely prerenal --HOLD ACEI AND CHLORTHALIDONE --lasix per -Nephrology Dr.Anon, anticipate HD need in the future w/ known CKD 5 , followed in [facility], though poor candidate due to comorbidities SIRs, acute - elevated WBC, T 38.6 following admission -unclear source of infection, pending procalcitonin -UA neg, CXR neg prior pneumonia had been on rocephine azithromycin -empiric treatment with piperacillin-tazobactam, neg MRSA screen Retroperitoneal psoas hematoma --appreciate gen surg/Dr. Santos العلي - they signed off 08/05 Supratherapeutic INR, acute - RESOLVED -INR 11 on presentation -kcentra and vitamin K given - INR QAM --ANTICIPATE ASA FOR AFIB ON DISCHARGE Metabolic encephalopathy, acute, POA -2/2 uremia, acute blood loss anemia -CN intact, no focal deficit -CT negative Anasarca, unknown chronicity -a/w chf and arf, WT UNCHANGED -diurese when bp tolerates -TSH and free T4 NORMAL Elevated troponin, resolving -likely 2/2 acute renal dysfunction, no CP on admission, encephalopathic -no EKG with patient following admission -EKG stat Lower extremity edema asymmetric -concerning for DVT, R>L -lower extremity doppler US CHF decompensated, acute on chronic wt unchanged 101.4kg from 2 weeks ago restarted metoprolol when bp tolerates Atrial fibrillation, chronic -restart beta kacey when BP tolerates -hold warfarin. Not a candidate for anticoagulation on discharge. Dispo eventually return to his snf VTE Prophylaxis: SCDs DNR VTE Prophylaxis: SCDs VTE Mechanical Devices: Intermittant Pneumatic CD Resuscitation Status: CPR: Attempt Resuscitation Sahara Canales MD Aug 05, 2016 12:48
--- NOTE | 2016-08-05 15:10 | NUR ---
Social Work: Initial Assessment Data: Pt is an 86 y/o male admitted for severe anemia / bed level fall / hematoma. Pt's PCP is Dr Nascimento, pt's insurance is [employer]. EMR reviewed. Readmit score is 5. HOG DRIVER met with pt at bedside, role explained.Pt responded "I don't know" to the question, "where do you live", and HOG DRIVER asked if he remembers [facility]. Pt fell asleep in the middle of conversation with HOG DRIVER. HOG DRIVER called pt's to complete initial Assessment. She states that pt is a SNF resident at [facility] for rehab. She states that he typically lives with her in [place], but that he came to SNF in [facility] because it was the closest one that their insurance covers. She states that pt at baseline uses a cane but that he has been using a wheel chair recently at [facility]. He does not drive, has no HH or SNF hx prior to current SNF stay and he is not [facility] connected. She states they have AD/DPOA, HOG DRIVER requested a copy for hospital. Pt's spouse agreeable to pt returning to [facility]. HOG DRIVER called [facility] and left a voice mail requesting a call back to confirm that they can take pt back when he is ready for d/c. Assessment: Pt from SNF, rehab. Plan: Pt will d/c back to [facility] likely pending their confirmation that they can take him back. HOG DRIVER will continue to follow. RANDI Larsen Addendum: 08/05/16 at 1514 by CHACHO BRADSHAW Amended: Links added.
[2016-08-05] MEDS: 0.9% Sodium Chloride 1,000 ML IV SCH (17:06)
--- NOTE | 2016-08-05 17:56 | NUR ---
Mentation per patient family, patient has been more "like himself". [id number] reports that patient stated that he "wanted to go home and ". patient made a similar comment to NADIR Chaves today. at lunch patient refused to take his Renela stating, "I'm done with those damn pills". this evening he's more alert (to self and place) and compliant with care, taking all medications. continue to monitor.
[2016-08-05] MEDS: Albuterol-Ipratropium 3 mL Inhalation Solution NEB SCH (20:39)
[2016-08-06] VITALS (11 sets, daily range): BP systolic 126–149; BP diastolic 64–78; PULSE 79–102; RESP 16–21; O2SAT 90–94
[2016-08-06 05:59] LABS: BASOPHILS % (AUTO) 0.1 % (0-3); EOSINOPHILS % (AUTO) 2.3 % (0-5); MONOCYTES % (AUTO) 6.6 % (4-12); Mean Corpuscular Hemoglobin 27.8 pg (27.0-35.0); Mean Corpuscular Volume 89.8 fL (81-100); NEUTROPHILS % (AUTO) 81.7 % (40-74); Platelet Count 197 bil/L (150-400)
--- NOTE | 2016-08-06 06:21 | NUR ---
Poor nutrition intake Pts called last night to assess Pts well being. This RN informed her that Pt ate 25% of breakfast and only small bites of his lunch and dinner. This RN attempted to get Pt to eat apple sauce and pudding but Pt only ate what was required to take his HS medication and then would not stay awake or stay focused.
[2016-08-06] MEDS: Albuterol-Ipratropium 3 mL Inhalation Solution NEB SCH ×2 (07:56→20:43)
[2016-08-06] MEDS: MeTOProlol XL 50 mg ER24 Tablet PO SCH ×2 (08:30→19:58)
[2016-08-06] MEDS: Piperacillin-Tazo 3.375 Gm Inj 3.375 GM in Dextrose 5% Minibag Plus 50 ML IV SCH (08:36)
[2016-08-06] MEDS: Timolol 0.5% 5 mL Ophthalmic Solution BOTH_EYES SCH (08:36)
--- NOTE | 2016-08-06 10:43 | NUR ---
Social Work: Continued Discharge Planning Data & Assessment: ARGENTINA spoke with Priscilla at [facility] and she stated that they are able to accept the patient back when he is medically ready for discharge. Priscilla stated that they will attempt obtain authorization from patient's insurance. ARGENTINA gave [facility] access to the patient's chart. SW will continue to follow and assist patient throughout stay. Plan: Patient will likely discharge back to [facility] pending insurance authorization. ARGENTINA will continue to follow and assist patient throughout stay. Massiel Mancera, SHAYY, ACM
[2016-08-06] MEDS ORDERED: Dextrose 5% 1,000 ML IV SCH (11:25)
--- NOTE | 2016-08-06 11:30 | PCM.PNMED ---
Subjective Date of Service Aug 06, 2016 Exam Vital Signs Vital Sign - Last Date Time Temp Pulse Resp B/P Pulse Ox O2 Delivery O2 Flow Rate FiO2 08/06/16 11:19 90 08/06/16 08:41 36.9 18 130/64 90 Room Air 08/04/16 06:05 2.00 Intake and Output 08/05/16 08/05/16 08/06/16 Cumulative From/Thru 15:00 23:00 07:00 08/03/16 21:08 - 08/06/16 05:19 Intake Total 333 ml 2206 ml Output Total 1700 ml 5475 ml Balance -1367 ml -3269 ml Intake Oral 200 ml IV Total 333 ml 1731 ml Packed Cells 275 ml Output Urine Total 1700 ml 5475 ml # Bowel Movements 0 0 Lab and Diagnostics Result Diagram: 08/06/16 0520 08/06/16 0520 X-Rays, CTs and MRIs Per ED documentation ECG Interpretation ECG Interpretation: Afib. with none specific ST t-wave laterally. Time: 21:58 Interpreted by: ED physician Normal ECG Interpretation: Normal rate (74) X-Ray Chest Interpretation Chest Xray Interpretation: IMPRESSION: No traumatic abnormalities seen AP supine chest. Heart is enlarged no evidence for failure. Right midlung field minimal patchy streaky disease probably residual infiltrate or atelectasis from earlier in the month. Pneumonia was prominent in the right chest on old x-rays. Dictated by: Aaron Rendon M.D. on 08/03/2016 at 22:08 Approved by: Aaron Rendon M.D. on 08/03/2016 at 22:11 Interpretation / Wet Read by: Interpret - Radiologist X-Ray Interpretation Xray Interpretation: IMPRESSION: No fracture of the pelvis or either hip is appreciated. Dictated by: Aaron Rendon M.D. on 08/03/2016 at 22:11 Approved by: Aaron Rendon M.D. on 08/03/2016 at 22:14 X-Ray Ordered: Pelvis Interpretation / Wet Read by: Interpret - Radiologist CT Head Interpretation IMPRESSION: No acute intracranial abnormality. Colloid cyst of the third ventricle is present. Hydrocephalus is not identified. Diffuse atrophic change and microvascular ischemic change of aging is present. Dictated by: Aaron Rendon M.D. on 08/03/2016 at 21:45 Approved by: Aaron Rendon M.D. on 08/03/2016 at 21:54 Study: Head CT no contrast Interpretation / Wet Read by: Interpret - Radiologist CT Abd / Pelvis Interpretation Impression: There is a right acute retroperitoneal hematoma and right acute psoas muscle hematoma measures 4 cm in greates dimensions. The psoas muscle hematoma measures 10 cm in greatest dimension. Radiologist: August Blandon M.D. Transmitted at 2355, 08/03/2016 to the Emergency room Study type: Abdominal CT no contrast Interpretation / Wet Read by: Interpret - Radiologist CT C-Spine Interpretation IMPRESSION: 1. No acute bony abnormality is found in the cervical spine. Dictated by: Aaron Rendon M.D. on 08/03/2016 at 21:54 Approved by: Aaron Rendon M.D. on 08/03/2016 at 21:57 Interpretation / Wet Read by: Wet read ED physician, Interpret - Radiologist Assessment & Plan 08/04 o/n- admitted fell out of bed recurrent inr 11/right retroperitoneal hematoma, 3U RBC, k centra, narcan improved narcosis, 7.3 pCO 51, contact precautions 08/05 o/n confused restless,. 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 s/p zosyn for SIRS as procalcitonin was positive, DPOA and family want to honor patient wishes ie, no procedures and interested in palliative options when ready to return to his SNF. Acute blood loss anemia, acute, POA -secondary to GLF in the setting of supratherapeutic INR -3U RBC kcentra / darbopoetin -2 units held -qd H&H TIFF on CKD5, POA, associated anasarca --ongoing good UOP --HOLD ACEI AND CHLORTHALIDONE --lasix intially, now D5 IVF per Nephrology , followed in [facility] , no need for HD, and poor candidate due to comorbidities -TSH and free T4 NORMAL -secondary hyperparathyroidism, resume home meds SIRs, acute - elevated WBC, T 38.6 following admission, likely reactive -unclear source of infection -UA neg, CXR neg prior pneumonia had been on rocephine azithromycin -s/p empiric treatment with piperacillin-tazobactam, neg MRSA screen Retroperitoneal psoas hematoma --appreciate gen surg/Dr. Santos العلي - they signed off 08/05 Supratherapeutic INR, acute - RESOLVED, Atrial fibrillation, chronic -INR 11 on presentation -kcentra and vitamin K given - INR QAM --ANTICIPATE ASA FOR AFIB ON DISCHARGE Metabolic encephalopathy, acute, POA resolved --held home narcotics -2/2 uremia, acute blood loss anemia -CN intact, no focal deficit -CT negative Elevated troponin, downward trend -likely 2/2 acute renal dysfunction, no CP on admission, encephalopathic R>L Lower extremity edema asymmetric --lower extremity doppler US negative CHF decompensated, acute on chronic wt unchanged 101.4kg from 2 weeks ago restarted metoprolol w/ holding parameters Dispo eventually return to his snf w/ palliative care. No interest in HD. At his SNF, he had fallen out of bed due to urinary urgency/overactive bladder ( prior TURP)-anticipate sparks remaining in place especially w/ palliative/ hospice direction of patient and family. pending pallitive consult -daughter and agree. VTE Prophylaxis: SCDs VTE Mechanical Devices: Intermittant Pneumatic CD Resuscitation Status: CPR: Attempt Resuscitation Sahara Canales MD Aug 06, 2016 11:30
--- NOTE | 2016-08-06 12:17 | PCM.PNNEPH ---
Subjective Date of Service Aug 06, 2016 Subjective no family members available at bedside. no acute issue. confused and demented. lying in bed comfortably. Exam Vital Signs Vital Sign - Last Date Time Temp Pulse Resp B/P Pulse Ox O2 Delivery O2 Flow Rate FiO2 08/06/16 11:19 90 08/06/16 08:41 36.9 18 130/64 90 Room Air 08/04/16 06:05 2.00 Intake and Output 08/05/16 08/05/16 08/06/16 Cumulative From/Thru 15:00 23:00 07:00 08/03/16 21:08 - 08/06/16 05:19 Intake Total 333 ml 2206 ml Output Total 1700 ml 5475 ml Balance -1367 ml -3269 ml Intake Oral 200 ml IV Total 333 ml 1731 ml Packed Cells 275 ml Output Urine Total 1700 ml 5475 ml # Bowel Movements 0 0 Exam General appearance: Awake, oriented only to self. In no acute distress. Not tachypneic. HEENT: Mild pallor. No jaundice. No JVD. No lymphadenopathy. No thyroid enlargement. dry mucous membrane. Heart: Irregular rhythm. Normal S1, S2. No significant murmur. Lungs: Decreased breath sounds at bases. No wheezing. No rhonchi. Abdomen: Soft, mildly distended, active bowel sounds. Positive pitting edema on the abdominal wall. Extremities: no edema on LE, Positive for sacral swelling. Lab and Diagnostics Result Diagram: 08/06/16 0508/06/16 0520 X-Rays, CTs and MRIs Per ED documentation ECG Interpretation ECG Interpretation: Afib. with none specific ST t-wave laterally. Time: 21:58 Interpreted by: ED physician Normal ECG Interpretation: Normal rate (74) X-Ray Chest Interpretation Chest Xray Interpretation: IMPRESSION: No traumatic abnormalities seen AP supine chest. Heart is enlarged no evidence for failure. Right midlung field minimal patchy streaky disease probably residual infiltrate or atelectasis from earlier in the month. Pneumonia was prominent in the right chest on old x-rays. Dictated by: Aaron Rendon M.D. on 08/03/2016 at 22:08 Approved by: Aaron Rendon M.D. on 08/03/2016 at 22:11 Interpretation / Wet Read by: Interpret - Radiologist X-Ray Interpretation Xray Interpretation: IMPRESSION: No fracture of the pelvis or either hip is appreciated. Dictated by: Aaron Rendon M.D. on 08/03/2016 at 22:11 Approved by: Aaron Rendon M.D. on 08/03/2016 at 22:14 X-Ray Ordered: Pelvis Interpretation / Wet Read by: Interpret - Radiologist CT Head Interpretation IMPRESSION: No acute intracranial abnormality. Colloid cyst of the third ventricle is present. Hydrocephalus is not identified. Diffuse atrophic change and microvascular ischemic change of aging is present. Dictated by: Aaron Rendon M.D. on 08/03/2016 at 21:45 Approved by: Aaron Rendon M.D. on 08/03/2016 at 21:54 Study: Head CT no contrast Interpretation / Wet Read by: Interpret - Radiologist CT Abd / Pelvis Interpretation Impression: There is a right acute retroperitoneal hematoma and right acute psoas muscle hematoma measures 4 cm in greates dimensions. The psoas muscle hematoma measures 10 cm in greatest dimension. Radiologist: August Blandon M.D. Transmitted at 6705, 08/03/2016 to the Emergency room Study type: Abdominal CT no contrast Interpretation / Wet Read by: Interpret - Radiologist CT C-Spine Interpretation IMPRESSION: 1. No acute bony abnormality is found in the cervical spine. Dictated by: Aaron Rendon M.D. on 08/03/2016 at 21:54 Approved by: Aaron Rendon M.D. on 08/03/2016 at 21:57 Interpretation / Wet Read by: Wet read ED physician, Interpret - Radiologist Plan Impression 1. Acute kidney injury on chronic kidney disease secondary to prerenal azotemia due to severe anemia in the setting of congestive heart failure. improving kidney function. 2. Supratherapeutic INR. 3. Retroperitoneal hematoma. 4. Systemic inflammatory response syndrome (SIRS). 5. History of atrial fibrillation, taking anticoagulant. 6. History of congestive heart failure. 7. Secondary hyperparathyroidism. 8. Hypernatremia. Plan: add d5w 60 ml/hr x 1 L. no urgent HD indicated at this moment. continue PO4 binders. repeat CBC and renal panel in am. Eligio Gonzales MD Aug 06, 2016 12:17
[2016-08-06] MEDS: 0.9% Sodium Chloride 1,000 ML IV SCH (12:23)
--- NOTE | 2016-08-06 14:53 | NUR ---
PO intake Pt ate minimal breakfast and lunch today, did not want to eat. Pt is lethargic, but arousable to voice. Family at bedside, aware.
--- NOTE | 2016-08-06 17:13 | NUR ---
[facility] signed
--- NOTE | 2016-08-06 18:29 | NUR ---
Nutrition Patient only ate a few bites of dinner. Patient refused to take more. Patient did have difficulty swallowing Dysphasia mechanical diet with NTL and was found coughing frequently with the meat and mashed potatoes. Patient son was found in room giving patient thin water and patient was coughing. Son was informed of the need for NTL for the patient and he took the thin water away and stated he was unaware of the change.
[2016-08-07] VITALS (10 sets, daily range): BP systolic 133–148; BP diastolic 68–82; PULSE 76–113; RESP 12–20; O2SAT 90–98
--- NOTE | 2016-08-07 06:07 | NUR ---
Restful night Pt slept most of shift. Occasionally awake, continues with confusion while awake. Pt was turned side to side with vitals and when awake.
[2016-08-07 06:38] LABS: BASOPHILS % (AUTO) 0.2 % (0-3); EOSINOPHILS % (AUTO) 1.3 % (0-5); MONOCYTES % (AUTO) 6.6 % (4-12); Mean Corpuscular Hemoglobin 28.1 pg (27.0-35.0); NEUTROPHILS % (AUTO) 84.4 % (40-74); Platelet Count 187 bil/L (150-400)
[2016-08-07 08:01] LABS: Phosphorus 5.3 mg/dL (2.5-4.9)
[2016-08-07] MEDS: Timolol 0.5% 5 mL Ophthalmic Solution BOTH_EYES SCH (08:20)
[2016-08-07] MEDS: MeTOProlol XL 50 mg ER24 Tablet PO SCH ×2 (08:20→20:35)
[2016-08-07] MEDS: Albuterol-Ipratropium 3 mL Inhalation Solution NEB SCH ×2 (08:28→20:30)
[2016-08-07] MEDS ORDERED: Potassium Chloride 20 mEq SR Tablet PO ONE ×2 (08:45→09:30)
--- NOTE | 2016-08-07 10:39 | PCM.CONPAL ---
Date of Service Aug 07, 2016 Date of Hospital Admission: Aug 04, 2016 at 00:32 Date of Palliative Consult: Aug 07, 2016 Requesting Provider: Sahara Canales MD Reason Palliative Care Consult: Goals of Care Discussion Reason for Consultation Palliative Care received order from Dr Ifrah Canales 08/06/16 to assist with goals of care. Patient is an 86 year old man with CKD, severe anemia and CHF. He was recently at [facility] 07/21-07/28/16 and was readmitted 08/04/16. Patient is a resident at [facility]. Hue Sanchez () [phone] Rachel Melton (daughter) [phone] Hospital Unit @time of consult: Medical/Pediatric Care (room 3016) Palliative Care Recommendation Summary of palliative recommendations: -Symptom management (Pain/other): Family has decided on comfort goals with plans to transition to Hospice care at [place] after introductory hospice information visit (to be scheduled here in hospital or at [facility]). In the meantime, they are fine if medical team stops all labs, imaging. Continue to give him whatever oral medications he usually takes, if he is able to swallow them. Consider discontinuation of larger pills or nonessential medications. Family's preferences discussed with Dr. Freitas who will see patient and decided when is appropriate discharge timing. Palliative Care has contact Hospice to get family an hospice information visit. -DPOA/Advanced Directives/POLST: 1. Code status is DNR/DNI. 2. POLST signed today by daughter Rachel, who is pt's HCPOA. This states DNR/ DNI/comfort care/antibiotics (oral) if needed for comfort)/no tube feedings. -Family/emotional support: 1.Hue Sanchez () [phone] 2.Rachel Melton (daughter) [phone] Palliative Care will sign off case today as goals and management are clear. Pt is now awaiting disposition. Problems: Resuscitation Status Resuscitation Status: CPR: Attempt Resuscitation POLST Updates/Changes Previous POLST?: Yes POLST Last Review Date: Aug 07, 2016 Antibiotics: Determine Use or Limitations Artificially Admin Nutrition: No Artifical Nutrition by Tube POLST Discussed with: Health Care Agent (DPOAHC) POLST Review Outcome: New Form Completed . Advanced Care Planning Address: POLST, Comfort care Pain: None Pt History History of Present Illness 86yoM with past medical history of atrial fibrillation/CHF, HFrEF, HTN admitted found down after unwitnessed GLF with subsequent findings of INR >10, retroperitoneal and psoas hematoma and hgb of 5. Recent admission from 07/21-07/28 where he was a direct admission from [place] d/t respiratory failure secondary to CHF exacerbation on bipap with supratherapeutic INR and concern for hemorrhage vs anemia of chronic disease. He was treated for CHF exacerbation, probably COPD exacerbation, PNA, and acute blood loss anemia. Hospital Course: Mr. Sanchez's trauma imaging work-up was negative, he has had a full course of zosyn for SIRS because his procalcitonin was positive on admission. His DPOA and family want to honor patient's wishes ie, no procedures and they are interested in palliative options when he is medically stable to return to his SNF. Past Medical History Significant PMH Noted: Atrial fibrillation on warfarin Congestive heart failure HFeEF Hypertension Nephrolithiasis Pneumonia Possible COPD Morbid obesity HLD Surgical History Back surgery Shoulder surgery Family History Diabetes (mother) CAD (father passed from [facility]) Social History Hx Alcohol Use: Yes Hx Substance Use: No Hx Tobacco Use: Yes (see history of present illness) Smoking Status: Former Smoker (50 years ago) Medications Current Medications: Current Medications Sevelamer Carbonate 800 mg TIDWM PO Last administered on 08/07/16 08:19; Admin Dose 800 MG; Start 08/05/16 at 12:00 Allopurinol 300 mg DAILY PO Last administered on 08/07/16 08:19; Admin Dose 300 MG; Start 08/06/16 at 08:30 Calcitriol 0.25 mcg HS PO Last administered on 08/06/16 19:58; Admin Dose 0.25 MCG; Start 08/05/16 at 21:00 Ferrous Sulfate 325 mg BID PO Last administered on 08/07/16 08:19; Admin Dose 325 MG; Start 08/05/16 at 20:30 Sevelamer Carbonate 800 mg TIDWM PO; Start 08/05/16 at 17:30; Stop 08/05/16 at 17:30; Status DC Sodium Bicarbonate 650 mg BID PO Last administered on 08/07/16 08:19; Admin Dose 650 MG; Start 4/22/17 at 20:30 Albuterol/ Ipratropium 3 ml 3 ml BID NEB Last administered on 08/07/16 08:28; Admin Dose 3 ML; Start 08/05/16 at 20:30 Dextrose/Water 1,000 ml @ 60 mls/hr [id number] IV Last administered on 08/06/16 12:23; Admin Dose 60 MLS/HR; Start 08/06/16 at 11:25; Stop 08/07/16 at 04:04; Status DC Scheduled Allopurinol (Allopurinol) 300 Mg Tablet 300 MG PO DAILY Amlodipine (Amlodipine) 5 Mg Tablet 5 MG PO BID Azithromycin (Azithromycin) 500 Mg Tablet 500 MG PO DAILY Calcitriol (Rocaltrol) 0.25 Mcg Capsule 0.25 MCG PO HS Ceftriaxone Sodium (Ceftriaxone) 1 Gm Vial 1 GM IM DAILY Chlorthalidone (Chlorthalidone) 25 Mg Tablet 25 MG PO DAILY Cholecalciferol (Vitamin D3) (Vitamin D3) 1,000 Unit Tab.chew 1,000 UNIT PO DAILY Enalapril Maleate (Enalapril Maleate) 20 Mg Tablet 20 MG PO BID Fentanyl 25 mcg/hr Patch (Fentanyl 25 mcg/hr Patch) 1 Each Patch.td72 1 PATCH TRANSDERM Q3D Ferrous Sulfate (Iron) 325 Mg Tablet 325 MG PO BID Gabapentin (Gabapentin) 100 Mg Capsule 100 MG PO TID Latanoprost (Latanoprost) 2.5 Ml Drops 1 GTT BOTH_EYES HS Metoprolol Succinate ER (Metoprolol Succinate ER) 50 Mg Tab.er.24h 50 MG PO BID Multivitamin with Minerals (Totalday Multiple) 1 Each Tablet.er 1 EACH PO DAILY Oxybutynin Chloride (Oxybutynin Chloride) 5 Mg Tablet 5 MG PO HS Pravastatin (Pravastatin) 40 Mg Tablet 40 MG PO HS Sevelamer Carbonate (Renvela) 800 Mg Tablet 800 MG PO TIDWM Sodium Bicarbonate (Sodium Bicarbonate) 650 Mg Tablet 650 MG PO BID Timolol (Betimol) 5 Ml Drops 1 DROP BOTH_EYES HS Torsemide (Torsemide) 20 Mg Tablet 20 MG PO 3pm Torsemide (Torsemide) 20 Mg Tablet 40 MG PO DAILY Ubidecarenone (Coq-10) 30 Mg Capsule 90 MG PO DAILY Venlafaxine ER (Venlafaxine ER) 75 Mg Tab.er.24 75 MG PO DAILY Warfarin Sodium (Warfarin Sodium) 5 Mg Tablet 5 MG PO M,T,Th,F Warfarin Sodium (Warfarin Sodium) 2.5 Mg Tablet 2.5 MG PO W,S,S Scheduled PRN Acetaminophen (Acetaminophen) 325 Mg Tablet 650 MG PO Q4H PRN PRN For Mild Pain or Fever Bisacodyl (Dulcolax Rectal) 10 Mg Supp.rect 10 MG RC DAILY PRN PRN For Constipation Ipratropium/Albuterol Sulfate (Iprat-Albut 0.5-3(2.5) mg/3 mL Inhalant Soln) 3 Ml Ampul.neb 1 NEB IH Q4H PRN PRN For Shortness of Breath Magnesium Hydroxide (Milk of Magnesia) 400 Mg/5 Ml Oral.susp 30 ML PO DAILY PRN PRN For Constipation oxyCODONE-Acetaminophen 10-325 mg (oxyCODONE-Acetaminophen 10-325 mg) 1 Each Tablet 1 TABLET PO BID PRN PRN For Pain Objective Findings Exam Vital Sign - Last Date Time Temp Pulse Resp B/P Pulse Ox O2 Delivery O2 Flow Rate FiO2 08/07/16 10:00 36.6 92 18 133/70 91 Room Air 08/04/16 06:05 2.00 Intake and Output 08/06/16 08/06/16 08/07/16 Cumulative From/Thru 15:00 23:00 07:00 08/03/16 21:08 - 08/07/16 06:17 Intake Total 0 ml 704 ml 0 ml 2910 ml Output Total 1350 ml 1100 ml 90 ml 8015 ml Balance -1350 ml -396 ml -90 ml -5105 ml Intake Oral 0 ml 120 ml 0 ml 320 ml IV Total 584 ml 2315 ml Packed Cells 275 ml Output Urine Total 1350 ml 1100 ml 90 ml 8015 ml # Bowel Movements 0 0 0 Objective General appearance: Awake, oriented to self and . In no acute distress. Not tachypneic. HEENT: Head normocephalic, eyes closed while talking. Mild pallor. No jaundice. No JVD. No lymphadenopathy. Mucus membranes dry. Occasionally talks but speech slurred and doesn't make sense. Heart: Irregular rhythm. Normal S1, S2. No significant murmur. Lungs: Decreased breath sounds at bases. No wheezing. No rhonchi. Abdomen: Soft, mildly distended, active bowel sounds. + pitting edema of abdominal wall. Extremities: no edema of bilateral UE or LE Lab/Diagnostics Lab and Imaging results reviewed in detail in EMR. Time spent Total time 70 minutes; >50% face to face with patient and/or family, providing counselling regarding plans and recommendations, and in care coordination with his/her medical teams. I also spent an additional 30 minutes counseling for advanced care planning with the patient/the patients family/the surrogate decision maker. Nikole Jeffries MD Aug 07, 2016 10:39
--- NOTE | 2016-08-07 11:04 | NUR ---
Returned call to [facility] admissions at [facility], left message about [facility] contract and potential referral. Patient comes from [facility] per SUMMER CLERK notes. Updated SUMMER CLERK Addendum: 08/07/16 at 1151 by MELODIE EDWARDS Faxed referral to [facility], [facility] admissions [facility]. Updated SUMMER CLERK if hospice or comfort is desired may need to be Private pay.
--- NOTE | 2016-08-07 11:55 | NUR ---
Social Work- Continued Discharge Planning SW received call from pt's Rachel [phone] who stated she does not want to ept to return to [facility] and instead would like him to go to [facility]. SW agreed to send referral and request auth for [facility] and will update her when more info is received. UR specialist sent referral to [facility]. RANDI Parada
--- NOTE | 2016-08-07 12:07 | NUR ---
Palliative Care Palliative Care received order from Dr Ifrah Canales 08/06/16 to assist with goals of care. Patient is an 86 year old man with CKD, severe anemia and CHF. He was recently at [facility] 07/21-07/28/16 and was readmitted 08/04/16. Patient is a resident at [facility]. Hue Sanchez () [phone] Rachel Melton (daughter) [phone] Palliative Care to follow. Yeimy Crawford
[2016-08-07] MEDS: 0.9% Sodium Chloride 1,000 ML IV SCH (12:21)
--- NOTE | 2016-08-07 14:11 | NUR ---
Palliative care note D/A: Dr. Jeffries has met with family who request a [facility] info visit. Msg left for [facility]. Note that POLST was completed today by Dr. Jeffries. Goals are for comfort. Pt is not able to make her own decisions and POLST is signed by pt dtr Cheyanne Melton. Pt is now DNAR and comfort measures only. Use of antibiotics to be determined at time of infection with comfort as goal. Pt does not wish to have medically assisted nutrition by tube. Msg left for [facility]. P: Palliative care to follow. Stacey PETTIT CCM Addendum: 08/07/16 at 1547 by PERLITA SMITH PC note amendment D/A: Phone call to [facility] regarding info visit-Marily calls back and offers times for 08/08/16. Phone call to pt dtr and she picks 1100 info visit time. Phone call to Marily ([facility]) to alert. Phone call to igor Tarango to inform. Dtr has office phone number if plans change. Stacey PETTIT [facility]
--- NOTE | 2016-08-07 14:24 | PCM.PNNEPH ---
Subjective Date of Service Aug 07, 2016 Subjective Awake. Good UOP. BUN/cr continue to improve. Stable Hb 9.0 Evaluated by palliative care team. Pending for disposition Exam Vital Signs Vital Sign - Last Date Time Temp Pulse Resp B/P Pulse Ox O2 Delivery O2 Flow Rate FiO2 08/07/16 13:04 36.7 93 20 140/71 94 Room Air 08/04/16 06:05 2.00 Intake and Output 08/06/16 08/06/16 08/07/16 Cumulative From/Thru 15:00 23:00 07:00 08/03/16 21:08 - 08/07/16 06:17 Intake Total 0 ml 704 ml 0 ml 2910 ml Output Total 1350 ml 1100 ml 90 ml 8015 ml Balance -1350 ml -396 ml -90 ml -5105 ml Intake Oral 0 ml 120 ml 0 ml 320 ml IV Total 584 ml 2315 ml Packed Cells 275 ml Output Urine Total 1350 ml 1100 ml 90 ml 8015 ml # Bowel Movements 0 0 0 Exam General appearance: Awake, oriented only to self. In no acute distress. Not tachypneic. HEENT: Mild pallor. No jaundice. No JVD. No lymphadenopathy. No thyroid enlargement. dry mucous membrane. Heart: Irregular rhythm. Normal S1, S2. No significant murmur. Lungs: Decreased breath sounds at bases. No wheezing. No rhonchi. Abdomen: Soft, mildly distended, active bowel sounds. Positive pitting edema on the abdominal wall. Extremities: no edema on LE, Positive for sacral swelling. Lab and Diagnostics Result Diagram: 08/07/1660408/07/16 0605 X-Rays, CTs and MRIs Per ED documentation ECG Interpretation ECG Interpretation: Afib. with none specific ST t-wave laterally. Time: 21:58 Interpreted by: ED physician Normal ECG Interpretation: Normal rate (74) X-Ray Chest Interpretation Chest Xray Interpretation: IMPRESSION: No traumatic abnormalities seen AP supine chest. Heart is enlarged no evidence for failure. Right midlung field minimal patchy streaky disease probably residual infiltrate or atelectasis from earlier in the month. Pneumonia was prominent in the right chest on old x-rays. Dictated by: Aaron Rendon M.D. on 08/03/2016 at 22:08 Approved by: Aaron Rendon M.D. on 08/03/2016 at 22:11 Interpretation / Wet Read by: Interpret - Radiologist X-Ray Interpretation Xray Interpretation: IMPRESSION: No fracture of the pelvis or either hip is appreciated. Dictated by: Aaron Rendon M.D. on 08/03/2016 at 22:11 Approved by: Aaron Rendon M.D. on 08/03/2016 at 22:14 X-Ray Ordered: Pelvis Interpretation / Wet Read by: Interpret - Radiologist CT Head Interpretation IMPRESSION: No acute intracranial abnormality. Colloid cyst of the third ventricle is present. Hydrocephalus is not identified. Diffuse atrophic change and microvascular ischemic change of aging is present. Dictated by: Aaron Rendon M.D. on 08/03/2016 at 21:45 Approved by: Aaron Rendon M.D. on 08/03/2016 at 21:54 Study: Head CT no contrast Interpretation / Wet Read by: Interpret - Radiologist CT Abd / Pelvis Interpretation Impression: There is a right acute retroperitoneal hematoma and right acute psoas muscle hematoma measures 4 cm in greates dimensions. The psoas muscle hematoma measures 10 cm in greatest dimension. Radiologist: August Blandon M.D. Transmitted at 6915, 08/03/2016 to the Emergency room Study type: Abdominal CT no contrast Interpretation / Wet Read by: Interpret - Radiologist CT C-Spine Interpretation IMPRESSION: 1. No acute bony abnormality is found in the cervical spine. Dictated by: Aaron Rendon M.D. on 08/03/2016 at 21:54 Approved by: Aaron Rendon M.D. on 08/03/2016 at 21:57 Interpretation / Wet Read by: Wet read ED physician, Interpret - Radiologist Plan Impression 1. Acute kidney injury on chronic kidney disease secondary to prerenal azotemia due to severe anemia in the setting of congestive heart failure. 2. Supratherapeutic INR. 3. Retroperitoneal hematoma. 4. Systemic inflammatory response syndrome (SIRS). 5. History of atrial fibrillation, taking anticoagulant. 6. History of congestive heart failure. 7. Secondary hyperparathyroidism. 8. Hypernatremia. Plan: Supportive treatment. Comfort measures. Pending to transition to hospice care. Renal service will sign off, please do not hesitate to call with any question. Thank you for the consultation. Eligio Gonzales MD Aug 07, 2016 14:24
--- NOTE | 2016-08-07 15:13 | NUR ---
Mentation Patient alert to self and place this shift. Continues to have a poor appetite and decreased intake. Family met with palliative team today. Addendum: 08/07/16 at 1851 by KYLE VOGT RN Patient requesting to sit in chair. Patient max assist, unable to sit upright/or assist to stand. Attempt made to get pt to chair. Attempt unsuccessful as patient was " weight". Patient returned to bed.
--- NOTE | 2016-08-07 22:51 | NUR ---
Fever Fever of 38.1 reported by [employer]. Tylenol and Sponge Bath provided. Will continue to monitor. Addendum: 08/08/16 at 0124 by VANDANA REYNOSO RN Currently on 37.7. Continuing to give tylenol PRIfrah
--- NOTE | 2016-08-07 23:57 | PCM.PNMED ---
Subjective Date of Service Aug 07, 2016 Subjective The patient is pleasantly confused. He has no new complaints. Exam Vital Signs Vital Sign - Last Date Time Temp Pulse Resp B/P Pulse Ox O2 Delivery O2 Flow Rate FiO2 08/07/16 23:35 37.9 08/07/16 20:40 98 18 148/82 94 Room Air 08/04/16 06:05 2.00 Intake and Output 08/06/16 08/06/16 08/07/16 Cumulative From/Thru 15:00 23:00 07:00 08/03/16 21:08 - 08/07/16 06:17 Intake Total 0 ml 704 ml 0 ml 2910 ml Output Total 1350 ml 1100 ml 90 ml 8015 ml Balance -1350 ml -396 ml -90 ml -5105 ml Intake Oral 0 ml 120 ml 0 ml 320 ml IV Total 584 ml 2315 ml Packed Cells 275 ml Output Urine Total 1350 ml 1100 ml 90 ml 8015 ml # Bowel Movements 0 0 0 Exam General: The patient is resting comfortably in bed in no apparent distress. HEENT: Head is atraumatic and normocephalic with normal male pattern baldness. Eyes: Pupils are equally round and reactive to light and accommodation. Extraocular muscles are intact. Sclera are white, anicteric. Subconjunctival mucosa is pink. Ears and nose are unremarkable. Oropharynx: There is no mucosal lesions, there is no thrush, there is no pharyngitis. Neck: Is supple, there are no nodes, or masses or tenderness. Chest: Is significant for bibasilar rales and decreased breath sounds bilaterally. Heart: Rate is controlled, rhythm is regular. There is no new murmur, rub or gallop. Abdomen: Good bowel sounds are present. Abdomen is soft, nontender, no organomegaly or masses were appreciated. Extremities: Are symmetrical and well perfused. There is no significant edema, there is no cellulitis, no rash. Neurologic: There are no focal neurological deficits. Cranial nerves II through XII are intact. There are no sensory or motor deficits. Psychiatric: Patients mood is calm and shows no sign of agitation. Genital: Deferred Rectal: Deferred Lab and Diagnostics Result Diagram: 08/07/16 0605 08/07/16 0605 Microbiology Blood cultures are negative MRSA screen is negative X-Rays, CTs and MRIs Per ED documentation ECG Interpretation ECG Interpretation: Afib. with none specific ST t-wave laterally. Time: 21:58 Interpreted by: ED physician Normal ECG Interpretation: Normal rate (74) X-Ray Chest Interpretation Chest Xray Interpretation: IMPRESSION: No traumatic abnormalities seen AP supine chest. Heart is enlarged no evidence for failure. Right midlung field minimal patchy streaky disease probably residual infiltrate or atelectasis from earlier in the month. Pneumonia was prominent in the right chest on old x-rays. Dictated by: Aaron Rendon M.D. on 08/03/2016 at 22:08 Approved by: Aaron Rendon M.D. on 08/03/2016 at 22:11 Interpretation / Wet Read by: Interpret - Radiologist X-Ray Interpretation Xray Interpretation: IMPRESSION: No fracture of the pelvis or either hip is appreciated. Dictated by: Aaron Rendon M.D. on 08/03/2016 at 22:11 Approved by: Aaron Rendon M.D. on 08/03/2016 at 22:14 X-Ray Ordered: Pelvis Interpretation / Wet Read by: Interpret - Radiologist CT Head Interpretation IMPRESSION: No acute intracranial abnormality. Colloid cyst of the third ventricle is present. Hydrocephalus is not identified. Diffuse atrophic change and microvascular ischemic change of aging is present. Dictated by: Aaron Rendon M.D. on 08/03/2016 at 21:45 Approved by: Aaron Rendon M.D. on 08/03/2016 at 21:54 Study: Head CT no contrast Interpretation / Wet Read by: Interpret - Radiologist CT Abd / Pelvis Interpretation Impression: There is a right acute retroperitoneal hematoma and right acute psoas muscle hematoma measures 4 cm in greates dimensions. The psoas muscle hematoma measures 10 cm in greatest dimension. Radiologist: August Blandon M.D. Transmitted at 4961, 08/03/2016 to the Emergency room Study type: Abdominal CT no contrast Interpretation / Wet Read by: Interpret - Radiologist CT C-Spine Interpretation IMPRESSION: 1. No acute bony abnormality is found in the cervical spine. Dictated by: Aaron Rendon M.D. on 08/03/2016 at 21:54 Approved by: Aaron Rendon M.D. on 08/03/2016 at 21:57 Interpretation / Wet Read by: Wet read ED physician, Interpret - Radiologist Assessment & Plan The patient is a 86yo white male with atrial fibrillation/CHF, admitted after GLF (neg trauma imaging w/u) with recurrent INR >10, retroperitoneal and psoas hematoma and hgb of 5, somnolence improved w/ narcan, TIFF. s/p zosyn for SIRS as procalcitonin was positive, DPOA and family want to honor patient wishes ie, no procedures and interested in palliative options when ready to return to his SNF. 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 Santos العلي - they signed off 08/05 # Supratherapeutic INR, acute - RESOLVED, Atrial fibrillation, chronic -INR 11 on presentation -kcentra and vitamin K given - INR QAM --ANTICIPATE ASA FOR AFIB ON DISCHARGE # Metabolic encephalopathy, acute, present on admission resolved --held home narcotics -2/2 uremia, acute blood loss anemia -CN intact, no focal deficit -CT negative # Elevated troponin, downward trend -likely 2/2 acute renal dysfunction, no CP on admission, encephalopathic # R>L Lower extremity edema asymmetric --lower extremity doppler US negative # CHF decompensated, acute on chronic wt unchanged 101.4kg from 2 weeks ago restarted metoprolol w/ holding parameters Dispo I discussed the case with patient's and she would like hospice to consult on her . Pain Evaluation: Adequate Pain Control VTE Prophylaxis: SCDs VTE Mechanical Devices: Intermittant Pneumatic CD Resuscitation Status: CPR: Attempt Resuscitation Efrain Freitas MD Aug 07, 2016 23:56
--- NOTE | 2016-08-08 00:01 | PCM.ADCARE ---
Advance Care Planning Note Purpose of Encounter: To establish goals of care Parties in Attendance: The patient and his Hue and myself Decisional Capacity: The patient is unable to make any decisions for himself and his spokesperson is his of 58 years Hue. Subjective: The patient is at his end of life with dementia, and atrial fibrillation, congestive heart failure Objective: Patient is extremely weak and remains demented. See progress note for full physical exam and Levaquin findings. Goals of Care Determinations: The patient would want to be comfortable and would not want aggressive therapy according to his Hue. She also would like him to be comfortable. And realizes that he is not going to get better. Plan: We will consult hospice care and the plan is to discharge to the [facility] with hospice care. CODE STATUS: She is a DNR/DNI Time Spent Adv.Care Planning: Approximately 30 minutes. Adv. Care Plan Documenation: See above. Efrain Freitas MD Aug 08, 2016 00:01
[2016-08-08 05:28] VITALS: BP 137/78; PULSE 98; RESP 18; O2SAT 95
--- NOTE | 2016-08-08 06:10 | NUR ---
NOC/Fever Pt denies chest pain, sob, n/v or abd discomfort. Has been pleasant and cooperative with care. Pt having elevated temperature of 38.1. Sponge bath provided, and PO Tylenol administered PRN. Hourly rounding done and pt has slept most of the night.
[2016-08-08 06:35] LABS: BASOPHILS % (AUTO) 0.1 % (0-3); EOSINOPHILS % (AUTO) 1.5 % (0-5); MONOCYTES % (AUTO) 4.3 % (4-12); Mean Corpuscular Hemoglobin 27.3 pg (27.0-35.0); Mean Corpuscular Volume 92.2 fL (81-100); NEUTROPHILS % (AUTO) 88.1 % (40-74); Platelet Count 172 bil/L (150-400)
[2016-08-08 07:02] LABS: Phosphorus 4.7 mg/dL (2.5-4.9)
[2016-08-08] MEDS: Timolol 0.5% 5 mL Ophthalmic Solution BOTH_EYES SCH (07:57)
[2016-08-08] MEDS: MeTOProlol XL 50 mg ER24 Tablet PO SCH ×2 (07:57→20:44)
[2016-08-08 08:42] VITALS: PULSE 96; RESP 16; O2SAT 91
[2016-08-08] MEDS: Albuterol-Ipratropium 3 mL Inhalation Solution NEB SCH ×2 (08:42→20:50)
[2016-08-08 12:35] VITALS: BP 155/84; PULSE 96; RESP 18; O2SAT 94
[2016-08-08] MEDS: 0.9% Sodium Chloride 1,000 ML IV SCH (12:55)
--- NOTE | 2016-08-08 14:37 | NUR ---
SW - continued discharge planning Data: Pt is on day 4 of hospitalization for severe anemia/bed level fall/hematoma. EMR reviewed. Per morning rounds pt will be her 1-2 more days. SW met with family and updated them that we are still awaiting response from [facility]. Family stated they are paying $300/day for bed hold fee at [facility]. SW explained that this fee would hold the bed for the pt but is not required for him to return to [facility], should he not be approved at [facility] and need to return there. They stated that they will opt to stop paying this fee. Hospice will meet with the family at the hospital at 11am today. SW will follow-up with response from [facility] when received. Assessment: Pt who would benefit from SNF Plan: Pt to discharge to SNF, awaiting approval from [facility]. SW will continue to follow. RANDI Parada
--- NOTE | 2016-08-08 18:37 | NUR ---
Intake Patient very alert this am, ate 100% of breakfast. Then refused all intake except ice chips for the rest of shift.
[2016-08-08 20:42] VITALS: BP 143/73; PULSE 96; RESP 22; O2SAT 91
[2016-08-08 20:50] VITALS: PULSE 90; RESP 16; O2SAT 92
--- NOTE | 2016-08-08 23:34 | PCM.PNMED ---
Subjective Date of Service Aug 08, 2016 Subjective Patient is slightly more alert and responsive. He is slightly more lucid today as well. However, he remains pleasantly confused. Exam Vital Signs Vital Sign - Last Date Time Temp Pulse Resp B/P Pulse Ox O2 Delivery O2 Flow Rate FiO2 08/08/16 20:50 90 16 92 Room Air 08/08/16 20:42 36.9 143/73 08/04/16 06:05 2.00 Intake and Output 08/07/16 08/07/16 08/08/16 Cumulative From/Thru 15:00 23:00 07:00 08/03/16 21:08 - 08/08/16 06:16 Intake Total 1448 ml 40 ml 4398 ml Output Total 1100 ml 1000 ml 52082 ml Balance 348 ml -960 ml -5717 ml Intake Oral 630 ml 0 ml 950 ml IV Total 818 ml 40 ml 3173 ml Packed Cells 275 ml Output Urine Total 1100 ml 1000 ml 10675 ml # Bowel Movements 0 Exam General: The patient is resting comfortably in bed in no apparent distress. Vision speech is clear and he appears more lucid. HEENT: Head is atraumatic and normocephalic with normal male pattern baldness. Eyes: Pupils are equally round and reactive to light and accommodation. Extraocular muscles are intact. Sclera are white, anicteric. Subconjunctival mucosa is pink. Ears and nose are unremarkable. Oropharynx: There is no mucosal lesions, there is no thrush, there is no pharyngitis. Neck: Is supple, there are no nodes, or masses or tenderness. Chest: Is significant for a decrease in bibasilar rales and improved breath sounds bilaterally. Heart: Rate is controlled, rhythm is regular. There is no new murmur, rub or gallop. Abdomen: Good bowel sounds are present. Abdomen is soft, nontender, no organomegaly or masses were appreciated. Extremities: Are symmetrical and well perfused. There is no significant edema, there is no cellulitis, no rash. Neurologic: There are no focal neurological deficits. Cranial nerves II through XII are intact. There are no sensory or motor deficits. Patient remains presently confused. Psychiatric: Patients mood is calm and shows no sign of agitation. Genital: Deferred Rectal: Deferred Lab and Diagnostics Result Diagram: 08/08/1661408/08/16614 Microbiology Blood cultures are negative MRSA screen is negative X-Rays, CTs and MRIs Per ED documentation ECG Interpretation ECG Interpretation: Afib. with none specific ST t-wave laterally. Time: 21:58 Interpreted by: ED physician Normal ECG Interpretation: Normal rate (74) X-Ray Chest Interpretation Chest Xray Interpretation: IMPRESSION: No traumatic abnormalities seen AP supine chest. Heart is enlarged no evidence for failure. Right midlung field minimal patchy streaky disease probably residual infiltrate or atelectasis from earlier in the month. Pneumonia was prominent in the right chest on old x-rays. Dictated by: Aaron Rendon M.D. on 08/03/2016 at 22:08 Approved by: Aaron Rendon M.D. on 08/03/2016 at 22:11 Interpretation / Wet Read by: Interpret - Radiologist X-Ray Interpretation Xray Interpretation: IMPRESSION: No fracture of the pelvis or either hip is appreciated. Dictated by: Aaron Rendon M.D. on 08/03/2016 at 22:11 Approved by: Aaron Rendon M.D. on 08/03/2016 at 22:14 X-Ray Ordered: Pelvis Interpretation / Wet Read by: Interpret - Radiologist CT Head Interpretation IMPRESSION: No acute intracranial abnormality. Colloid cyst of the third ventricle is present. Hydrocephalus is not identified. Diffuse atrophic change and microvascular ischemic change of aging is present. Dictated by: Aaron Rendon M.D. on 08/03/2016 at 21:45 Approved by: Aaron Rendon M.D. on 08/03/2016 at 21:54 Study: Head CT no contrast Interpretation / Wet Read by: Interpret - Radiologist CT Abd / Pelvis Interpretation Impression: There is a right acute retroperitoneal hematoma and right acute psoas muscle hematoma measures 4 cm in greates dimensions. The psoas muscle hematoma measures 10 cm in greatest dimension. Radiologist: August Blandon M.D. Transmitted at 4348, 08/03/2016 to the Emergency room Study type: Abdominal CT no contrast Interpretation / Wet Read by: Interpret - Radiologist CT C-Spine Interpretation IMPRESSION: 1. No acute bony abnormality is found in the cervical spine. Dictated by: Aaron Rendon M.D. on 08/03/2016 at 21:54 Approved by: Aaron Rendon M.D. on 08/03/2016 at 21:57 Interpretation / Wet Read by: Wet read ED physician, Interpret - Radiologist Assessment & Plan The patient is a 86yo white male with atrial fibrillation/CHF, admitted after GLF (neg trauma imaging w/u) with recurrent INR >10, retroperitoneal and psoas hematoma and hgb of 5, somnolence improved w/ narcan, TIFF. s/p zosyn for SIRS as procalcitonin was positive, DPOA and family want to honor patient wishes ie, no procedures and interested in palliative options when ready to return to his SNF. 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, POA, associated anasarca --ongoing good UOP --HOLD ACEI AND CHLORTHALIDONE --lasix intially, now D5 IVF per Nephrology , followed in [facility] , no need for HD, and poor candidate due to comorbidities -TSH and free T4 NORMAL -secondary hyperparathyroidism, resume home meds # SIRs, acute - elevated WBC, T 38.6 following admission, likely reactive -unclear source of infection -UA neg, CXR neg prior pneumonia had been on rocephine azithromycin -s/p empiric treatment with piperacillin-tazobactam, neg MRSA screen # Retroperitoneal psoas hematoma --appreciate gen surg/Dr. Santos العلي - they signed off 08/05 # Supratherapeutic INR, acute - RESOLVED, Atrial fibrillation, chronic -INR 11 on presentation -kcentra and vitamin K given - INR QAM --ANTICIPATE ASA FOR AFIB ON DISCHARGE # Metabolic encephalopathy, acute, present on admission resolved --held home narcotics -2/2 uremia, acute blood loss anemia -CN intact, no focal deficit -CT negative # Elevated troponin, downward trend -likely 2/2 acute renal dysfunction, no CP on admission, encephalopathic # R>L Lower extremity edema asymmetric --lower extremity doppler US negative # CHF decompensated, acute on chronic wt unchanged 101.4kg from 2 weeks ago restarted metoprolol w/ holding parameters Dispo I discussed the case with patient's and she would like hospice to consult on her . VTE Prophylaxis: SCDs VTE Mechanical Devices: Intermittant Pneumatic CD Resuscitation Status: CPR: Attempt Resuscitation [place],Efrain Redmond MD Aug 08, 2016 23:34
[2016-08-09 06:17] VITALS: BP 145/75; PULSE 90; RESP 20; O2SAT 93
--- NOTE | 2016-08-09 06:28 | NUR ---
NOC PT has slept off and on tonight. His mentation is quite labile. Pt will go from answering questions somewhat appropriately to being completely disoriented. Pt was stating that he wanted to divorce his and was concerned over financial issues. Redirected with minimal success. V/S WNL. Afebrile this shift. Denies any pain. Turn q2 hours. Hickey draining adequate amount of pale, yellow urine. Had small, soft BM. Pt waiting for placement to [place]. Will CTM.
[2016-08-09 06:59] LABS: BASOPHILS % (AUTO) 0.2 % (0-3); EOSINOPHILS % (AUTO) 1.2 % (0-5); Mean Corpuscular Hemoglobin 27.5 pg (27.0-35.0); NEUTROPHILS % (AUTO) 85.7 % (40-74); Platelet Count 158 bil/L (150-400)
[2016-08-09 07:15] LABS: Magnesium 2.6 mg/dL (1.6-2.6)
[2016-08-09] MEDS ORDERED: Potassium Chloride 20 mEq SR Tablet PO ONE (08:45)
--- NOTE | 2016-08-09 08:53 | NUR ---
Spoke to Saira at [facility], . They are able to accept pt today. Advised RANDI> Addendum: 08/09/16 at 1104 by RENALDO SHARIF SS received TC from Maria Del Carmen at [facility], they do not have the auth from [facility]. She does not think it will be in today. Advised RANDI.
[2016-08-09 09:01] VITALS: PULSE 90; RESP 18; O2SAT 92
[2016-08-09] MEDS: Albuterol-Ipratropium 3 mL Inhalation Solution NEB SCH ×2 (09:01→22:22)
[2016-08-09] MEDS: MeTOProlol XL 50 mg ER24 Tablet PO SCH ×2 (09:09→20:30)
[2016-08-09] MEDS: Timolol 0.5% 5 mL Ophthalmic Solution BOTH_EYES SCH (09:09)
[2016-08-09 09:27] VITALS: BP 132/74; PULSE 90; RESP 18; O2SAT 95
--- NOTE | 2016-08-09 12:22 | PCM.DIMED ---
Discharge Instructions Date of Service Aug 09, 2016 Dates of Hospitalization Aug 04, 2016 at 00:32 Discharge Diagnosis Discharge Diagnosis CHF and Renal Failure and Dementia Diet Heart Healthy Activity Outpatient Physical Therapy Call your provider Fever or Chills, Shortness of breath, Bleeding, Chest pain, Vomitting, Excessive diarrhea, Weakness (unilateral) Patient Instructions Follow-up Provider: David Nascimento MD Follow-up with PCP in: 1 week Additional Information Patient is being discharged to [facility] with Hospice Care Efrain Freitas MD Aug 09, 2016 12:22
[2016-08-09] MEDS ORDERED: CALC667T5 PO (12:31)
[2016-08-09] MEDS ORDERED: ALLO300T2 PO (12:31)
[2016-08-09] MEDS: 0.9% Sodium Chloride 1,000 ML IV SCH (12:55)
[2016-08-09 14:01] VITALS: BP 132/66; PULSE 96; RESP 18; O2SAT 96
--- NOTE | 2016-08-09 18:00 | NUR ---
SW - Readiness for discharge Data: Pt is on day 5 of hospitalization for severe anemia/bed level fall/hematoma. EMR reviewed. Per morning rounds pt is ready to discharge today. SW informed by UR specialist that [facility] has approved the pt but they are still awaiting insurance authorization. SW left message with Hue updating her. SW will follow-up when auth is determined. SW will continue to follow. Assessment: Pt who would benefit from SNF Plan: Pt to discharge to [facility], Pending insurance authorization. SW will continue to follow. RANDI Parada
--- NOTE | 2016-08-09 19:42 | NUR ---
Mentation Patient reported to , "My sister sent me something terrible a couple of years ago". "It is stapled in my bible in [place]" "I want you to take it out and destroy it-it is terrible". "It is about the last days and people eating each other". "I don't want you to read it-just destroy it". "It is very important, but don't read it".
[2016-08-09 20:42] VITALS: BP 145/88; PULSE 93; RESP 22; O2SAT 92
[2016-08-09 22:22] VITALS: PULSE 90; RESP 18; O2SAT 95
--- NOTE | 2016-08-09 23:41 | PCM.PNMED ---
Subjective Date of Service Aug 09, 2016 Subjective The patient is lying supine in bed listening to his daughter read the Bible to him. He remains pleasantly confused. He has no new complaints. Exam Vital Signs Vital Sign - Last Date Time Temp Pulse Resp B/P Pulse Ox O2 Delivery O2 Flow Rate FiO2 08/09/16 22:22 90 18 95 Room Air 08/09/16 20:42 36.5 145/88 08/04/16 06:05 2.00 Intake and Output 08/08/16 08/08/16 08/09/16 Cumulative From/Thru 15:00 23:00 07:00 08/03/16 21:08 - 08/09/16 06:17 Intake Total 320 ml 4718 ml Output Total 1050 ml 72996 ml Balance -730 ml -6447 ml Intake Oral 320 ml 1270 ml IV Total 3173 ml Packed Cells 275 ml Output Urine Total 1050 ml 50287 ml # Bowel Movements 0 Exam General: The patient is resting comfortably in bed in no apparent distress. His speech is more clear and he appears more lucid. HEENT: Head is atraumatic and normocephalic with normal male pattern baldness. Eyes: Pupils are equally round and reactive to light and accommodation. Extraocular muscles are intact. Sclera are white, anicteric. Subconjunctival mucosa is pink. Ears and nose are unremarkable. Oropharynx: There is no mucosal lesions, there is no thrush, there is no pharyngitis. Neck: Is supple, there are no nodes, or masses or tenderness. Chest: Is significant for a decrease in bibasilar rales and improved breath sounds bilaterally. Heart: Rate is controlled, rhythm is regular. There is no new murmur, rub or gallop. Abdomen: Good bowel sounds are present. Abdomen is soft, nontender, no organomegaly or masses were appreciated. Extremities: Are symmetrical and well perfused. There is improvement in his edema. Neurologic: There are no focal neurological deficits. Cranial nerves II through XII are intact. There are no sensory or motor deficits. Patient remains presently confused. Psychiatric: Patients mood is calm and shows no sign of agitation. Genital: Deferred Rectal: Deferred Lab and Diagnostics Result Diagram: 08/09/16 0640 08/09/16 0640 Microbiology Blood cultures are negative MRSA screen is negative X-Rays, CTs and MRIs Per ED documentation ECG Interpretation ECG Interpretation: Afib. with none specific ST t-wave laterally. Time: 21:58 Interpreted by: ED physician Normal ECG Interpretation: Normal rate (74) X-Ray Chest Interpretation Chest Xray Interpretation: IMPRESSION: No traumatic abnormalities seen AP supine chest. Heart is enlarged no evidence for failure. Right midlung field minimal patchy streaky disease probably residual infiltrate or atelectasis from earlier in the month. Pneumonia was prominent in the right chest on old x-rays. Dictated by: Aaron Rendon M.D. on 08/03/2016 at 22:08 Approved by: Aaron Rendon M.D. on 08/03/2016 at 22:11 Interpretation / Wet Read by: Interpret - Radiologist X-Ray Interpretation Xray Interpretation: IMPRESSION: No fracture of the pelvis or either hip is appreciated. Dictated by: Aaron Rendon M.D. on 08/03/2016 at 22:11 Approved by: Aaron Rendon M.D. on 08/03/2016 at 22:14 X-Ray Ordered: Pelvis Interpretation / Wet Read by: Interpret - Radiologist CT Head Interpretation IMPRESSION: No acute intracranial abnormality. Colloid cyst of the third ventricle is present. Hydrocephalus is not identified. Diffuse atrophic change and microvascular ischemic change of aging is present. Dictated by: Aaron Rendon M.D. on 08/03/2016 at 21:45 Approved by: Aaron Rendon M.D. on 08/03/2016 at 21:54 Study: Head CT no contrast Interpretation / Wet Read by: Interpret - Radiologist CT Abd / Pelvis Interpretation Impression: There is a right acute retroperitoneal hematoma and right acute psoas muscle hematoma measures 4 cm in greates dimensions. The psoas muscle hematoma measures 10 cm in greatest dimension. Radiologist: August Blandon M.D. Transmitted at 4875, 08/03/2016 to the Emergency room Study type: Abdominal CT no contrast Interpretation / Wet Read by: Interpret - Radiologist CT C-Spine Interpretation IMPRESSION: 1. No acute bony abnormality is found in the cervical spine. Dictated by: Aaron Rendon M.D. on 08/03/2016 at 21:54 Approved by: Aaron Rendon M.D. on 08/03/2016 at 21:57 Interpretation / Wet Read by: Wet read ED physician, Interpret - Radiologist Cardiac Echo Impressions Echocardiogram Report Name: ROLA GILLESPIE CStudy Da te: 07/21/2016 Height: 70 in Hospital Exam Location: [facility] Weight: 299 lb Gender: Male BSA: 2.5 m2 : 1930 Age: 86 yrs BP: 116/74 mmHg Reason For Study: CHF Ordering Physician: Performed By: Cesar Salcido Interpretation Summary 1) Mild concentric left ventricular hypertrophy with normal left ventricular size and mildly to moderately reduced systolic function (EF 45-50%). 2) Severe septal hypokinesis and apical inferior hypokinesis present. 3) Normal right ventricular size with mildly to moderately reduced systolic function. 4) Marked biatrial enlargement. 5) Moderate to severe mitral regurgitation that is directed posteriorly. Mitral leaflet do not coapt well. 6) Moderate to severe tricuspid regurgitation. 7) Pulmonary hypertension present, estimated systolic pulmonary pressure of 50mmHg. 8) Dilated IVC suggested of elevated right sided filling pressures. 9) Mildly to moderately enlarged ascending aorta (diameter 4.2cm) and mildly enlarged aortic arch (diameter 3.3cm). 10) No prior Echo available for comparison. Assessment & Plan The patient is a 86yo white male with atrial fibrillation/CHF, admitted after GLF (neg trauma imaging w/u) with recurrent INR >10, retroperitoneal and psoas hematoma and hgb of 5, somnolence improved w/ narcan, TIFF. s/p zosyn for SIRS as procalcitonin was positive, DPOA and family want to honor patient wishes ie, no procedures and interested in palliative options when ready to return to his SNF. 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 Santos العلي - they signed off 08/05 # Supratherapeutic INR, acute - RESOLVED, Atrial fibrillation, chronic -INR 11 on presentation -kcentra and vitamin K given - INR QAM --ANTICIPATE ASA FOR AFIB ON DISCHARGE # Metabolic encephalopathy, acute, present on admission resolved --held home narcotics -2/2 uremia, acute blood loss anemia -CN intact, no focal deficit -CT negative # Elevated troponin, downward trend -likely 2/2 acute renal dysfunction, no CP on admission, encephalopathic # R>L Lower extremity edema asymmetric --lower extremity doppler US negative # CHF decompensated, acute on chronic wt unchanged 101.4kg from 2 weeks ago restarted metoprolol w/ holding parameters Disposition: Plan is for patient to be discharged to hospice as soon as approved by [facility] and the patient's insurance plan. Pain Evaluation: Adequate Pain Control VTE Prophylaxis: SCDs VTE Mechanical Devices: Intermittant Pneumatic CD Resuscitation Status: CPR: Attempt Resuscitation Zena,Efrain Redmond MD Aug 09, 2016 23:41
[2016-08-10] VITALS (7 sets, daily range): BP systolic 135–153; BP diastolic 66–80; PULSE 96–108; RESP 18–24; O2SAT 90–93
--- NOTE | 2016-08-10 05:14 | NUR ---
unevenful night Patient slept throughout the night. Q2 hour turns implemented. patient alert and oriented. able to make needs known hard of hearing. vitals stable. HOB kept at 30 degrees. bed alarm in place for safety. will continue to monitor.
[2016-08-10] MEDS: Albuterol-Ipratropium 3 mL Inhalation Solution NEB SCH ×2 (08:19→20:04)
[2016-08-10] MEDS: Timolol 0.5% 5 mL Ophthalmic Solution BOTH_EYES SCH (08:30)
[2016-08-10] MEDS: MeTOProlol XL 50 mg ER24 Tablet PO SCH ×2 (10:06→20:51)
[2016-08-10] MEDS: 0.9% Sodium Chloride 1,000 ML IV SCH (12:55)
--- NOTE | 2016-08-10 19:25 | NUR ---
Safety/mobility Patient attempted to climb out of bed. Patient was repositioned by nurses and educated to use call-light and wait for assist, resident verbalized understanding. Patient stated, "I just want to transfer myself to my wheelchair." Patient bed alarm on. Staff educated to check on frequently.
--- NOTE | 2016-08-11 00:01 | PCM.PNMED ---
Subjective Date of Service Aug 10, 2016 Subjective Patient is beginning to complain more about his current situation which the family thinks may be an indication that he is improving. He remains pleasantly confused. He has no specific complaints. Exam Vital Signs Vital Sign - Last Date Time Temp Pulse Resp B/P Pulse Ox O2 Delivery O2 Flow Rate FiO2 08/10/16 20:58 36.9 108 20 153/68 92 Room Air 08/04/16 06:05 2.00 Intake and Output 08/09/16 08/09/16 08/10/16 Cumulative From/Thru 15:00 23:00 07:00 08/03/16 21:08 - 08/09/16 17:30 Intake Total 200 ml 600 ml 5518 ml Output Total 1000 ml 700 ml 49243 ml Balance -800 ml -100 ml -7347 ml Intake Oral 200 ml 600 ml 2070 ml IV Total 3173 ml Packed Cells 275 ml Output Urine Total 1000 ml 700 ml 73695 ml # Bowel Movements 1 1 Exam General: The patient is resting comfortably in bed in no apparent distress. His speech is more clear and he appears more lucid. HEENT: Head is atraumatic and normocephalic with normal male pattern baldness. Eyes: Pupils are equally round and reactive to light and accommodation. Extraocular muscles are intact. Sclera are white, anicteric. Subconjunctival mucosa is pink. Ears and nose are unremarkable. Oropharynx: There is no mucosal lesions, there is no thrush, there is no pharyngitis. Neck: Is supple, there are no nodes, or masses or tenderness. Chest: Is significant for a decrease in bibasilar rales and improved breath sounds bilaterally. Heart: Rate is controlled, rhythm is regular. There is no new murmur, rub or gallop. Abdomen: Good bowel sounds are present. Abdomen is soft, nontender, no organomegaly or masses were appreciated. Extremities: Are symmetrical and well perfused. There is improvement in his edema. Neurologic: There are no focal neurological deficits. Cranial nerves II through XII are intact. There are no sensory or motor deficits. Patient remains presently confused. Psychiatric: Patients mood is calm and shows no sign of agitation. Genital: Deferred Rectal: Deferred Lab and Diagnostics Result Diagram: 08/09/16 0640 08/09/16 0640 Microbiology Blood cultures are negative MRSA screen is negative X-Rays, CTs and MRIs Per ED documentation ECG Interpretation ECG Interpretation: Afib. with none specific ST t-wave laterally. Time: 21:58 Interpreted by: ED physician Normal ECG Interpretation: Normal rate (74) X-Ray Chest Interpretation Chest Xray Interpretation: IMPRESSION: No traumatic abnormalities seen AP supine chest. Heart is enlarged no evidence for failure. Right midlung field minimal patchy streaky disease probably residual infiltrate or atelectasis from earlier in the month. Pneumonia was prominent in the right chest on old x-rays. Dictated by: Aaron Rendon M.D. on 08/03/2016 at 22:08 Approved by: Aaron Rendon M.D. on 08/03/2016 at 22:11 Interpretation / Wet Read by: Interpret - Radiologist X-Ray Interpretation Xray Interpretation: IMPRESSION: No fracture of the pelvis or either hip is appreciated. Dictated by: Aaron Rendon M.D. on 08/03/2016 at 22:11 Approved by: Aaron Rendon M.D. on 08/03/2016 at 22:14 X-Ray Ordered: Pelvis Interpretation / Wet Read by: Interpret - Radiologist CT Head Interpretation IMPRESSION: No acute intracranial abnormality. Colloid cyst of the third ventricle is present. Hydrocephalus is not identified. Diffuse atrophic change and microvascular ischemic change of aging is present. Dictated by: Aaron Rendon M.D. on 08/03/2016 at 21:45 Approved by: Aaron Rendon M.D. on 08/03/2016 at 21:54 Study: Head CT no contrast Interpretation / Wet Read by: Interpret - Radiologist CT Abd / Pelvis Interpretation Impression: There is a right acute retroperitoneal hematoma and right acute psoas muscle hematoma measures 4 cm in greates dimensions. The psoas muscle hematoma measures 10 cm in greatest dimension. Radiologist: August Blandon M.D. Transmitted at 0780, 08/03/2016 to the Emergency room Study type: Abdominal CT no contrast Interpretation / Wet Read by: Interpret - Radiologist CT C-Spine Interpretation IMPRESSION: 1. No acute bony abnormality is found in the cervical spine. Dictated by: Aaron Rendon M.D. on 08/03/2016 at 21:54 Approved by: Aaron Rendon M.D. on 08/03/2016 at 21:57 Interpretation / Wet Read by: Wet read ED physician, Interpret - Radiologist Cardiac Echo Impressions Echocardiogram Report Name: ROLA GILLESPIE CStudy Da te: 07/21/2016 Height: 70 in Hospital Exam Location: [facility] Weight: 299 lb Gender: Male BSA: 2.5 m2 : 1930 Age: 86 yrs BP: 116/74 mmHg Reason For Study: CHF Ordering Physician: Performed By: Cesar Salcido Interpretation Summary 1) Mild concentric left ventricular hypertrophy with normal left ventricular size and mildly to moderately reduced systolic function (EF 45-50%). 2) Severe septal hypokinesis and apical inferior hypokinesis present. 3) Normal right ventricular size with mildly to moderately reduced systolic function. 4) Marked biatrial enlargement. 5) Moderate to severe mitral regurgitation that is directed posteriorly. Mitral leaflet do not coapt well. 6) Moderate to severe tricuspid regurgitation. 7) Pulmonary hypertension present, estimated systolic pulmonary pressure of 50mmHg. 8) Dilated IVC suggested of elevated right sided filling pressures. 9) Mildly to moderately enlarged ascending aorta (diameter 4.2cm) and mildly enlarged aortic arch (diameter 3.3cm). 10) No prior Echo available for comparison. Assessment & Plan The patient is a 86yo white male with atrial fibrillation/CHF, admitted after GLF (neg trauma imaging w/u) with recurrent INR >10, retroperitoneal and psoas hematoma and hgb of 5, somnolence improved w/ narcan, TIFF. s/p zosyn for SIRS as procalcitonin was positive, DPOA and family want to honor patient wishes ie, no procedures and interested in palliative options when ready to return to his SNF. 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, POA, associated anasarca --ongoing good UOP --HOLD ACEI AND CHLORTHALIDONE --lasix intially, now D5 IVF per Nephrology , followed in [facility] , no need for HD, and poor candidate due to comorbidities -TSH and free T4 NORMAL -secondary hyperparathyroidism, resume home meds # SIRs, acute - elevated WBC, T 38.6 following admission, likely reactive -unclear source of infection -UA neg, CXR neg prior pneumonia had been on rocephine azithromycin -s/p empiric treatment with piperacillin-tazobactam, neg MRSA screen # Retroperitoneal psoas hematoma --appreciate gen surg/Dr. Santos العلي - they signed off 08/05 # Supratherapeutic INR, acute - RESOLVED, Atrial fibrillation, chronic -INR 11 on presentation -kcentra and vitamin K given - INR QAM --ANTICIPATE ASA FOR AFIB ON DISCHARGE # Metabolic encephalopathy, acute, present on admission resolved --held home narcotics -2/2 uremia, acute blood loss anemia -CN intact, no focal deficit -CT negative # Elevated troponin, downward trend -likely 2/2 acute renal dysfunction, no CP on admission, encephalopathic # R>L Lower extremity edema asymmetric --lower extremity doppler US negative # CHF decompensated, acute on chronic wt unchanged 101.4kg from 2 weeks ago restarted metoprolol w/ holding parameters Disposition: Plan is for patient to be transferred to a different correction facility prior to being discharged home with hospice. resident services supervisor working and plans for discharge. Pain Evaluation: Adequate Pain Control VTE Prophylaxis: SCDs VTE Mechanical Devices: Venous Foot Pump Resuscitation Status: CPR: Attempt Resuscitation JessupEfrain MD Aug 11, 2016 00:01
[2016-08-11 04:02] VITALS: BP 157/82; PULSE 103; RESP 20; O2SAT 93
[2016-08-11 05:54] LABS: BASOPHILS % (AUTO) 0.2 % (0-3); EOSINOPHILS % (AUTO) 4.6 % (0-5); MONOCYTES % (AUTO) 4.7 % (4-12); Mean Corpuscular Hemoglobin 27.5 pg (27.0-35.0); Mean Corpuscular Volume 92.7 fL (81-100); NEUTROPHILS % (AUTO) 80.1 % (40-74); Platelet Count 169 bil/L (150-400)
[2016-08-11 06:20] LABS: Magnesium 2.5 mg/dL (1.6-2.6)
[2016-08-11 07:54] VITALS: PULSE 98; RESP 20; O2SAT 92
[2016-08-11] MEDS: Albuterol-Ipratropium 3 mL Inhalation Solution NEB SCH (07:54)
[2016-08-11] MEDS: MeTOProlol XL 50 mg ER24 Tablet PO SCH (09:01)
[2016-08-11] MEDS: Timolol 0.5% 5 mL Ophthalmic Solution BOTH_EYES SCH (09:02)
--- NOTE | 2016-08-11 09:03 | NUR ---
Palliative Care note D/A: Call received from Yaz at [facility] regarding dispo plan. Explained that PC has signed off services. Yaz notes that pt may be going to SNF private pay. She is wondering if plan is to have [facility] serve pt while at SNF. Case discussed with Rashmi who discusses with CM staff. igor Trevino will call Yaz at [facility] to discuss and arrange time for open visit. P: Palliative care has signed off this case. Stacey PETTIT, CCM
[2016-08-11] MEDS: 0.9% Sodium Chloride 1,000 ML IV SCH (12:40)
--- NOTE | 2016-08-11 13:21 | NUR ---
Depression Patient stated he was depressed. On JUN in chart from [facility], Patient was previously taking Venlafaxine 75mg tablet PO daily. MD was made aware.
[2016-08-11 13:49] VITALS: BP 146/79; PULSE 96; RESP 18; O2SAT 92
[2016-08-11] MEDS ORDERED: VENL75CA PO (14:34)
--- NOTE | 2016-08-11 14:52 | NUR ---
Discharge Patient given discharge orders. Patient IV removed fully intact and asymptomatic. Patient report called to Marily nurse at [facility]. Waiting for transportation at 4pm
--- NOTE | 2016-08-11 16:57 | NUR ---
Social Work: Discharge SW met with patient and patient's family at bedside and reviewed discharging to a [facility]illed [facility] facility for rehab and discharging there for mcc care and hospice; they voiced understanding. Patient and patient's family chose for the patient to discharge to [facility] for private pay [facility] care with [facility]. SW notified Stephanie with [facility] and the patient is scheduled to open with hospice on 08/15/16, but if there is an earlier start date then they will admit the patient. SW notified patient's attending physician and everyone's in agreement with the plan. Patient will discharge via cabulance to [facility]. SW will continue to follow. Massiel Mancera, SHAYY, VERONICA
--- NOTE | 2016-08-12 01:06 | PCM.DC.MED ---
Discharge Summary Date of Service Aug 11, 2016 Dates of Hospitalization Date of Hospital Admission Aug 04, 2016 at 00:32 Date of Discharge: Aug 11, 2016 Providers: Admitting Physician: Rose Lamb DO Primary Care Physician: David Nascimento MD Attending Physician: Rose Lamb DO Diagnosis at Time of Discharge Diagnosis at Time of Discharge CHF and Renal Failure and Dementia Procedures XRay, CTs & MRIs Per ED documentation ECG Interpretation ECG Interpretation: Afib. with none specific ST t-wave laterally. Time: 21:58 Interpreted by: ED physician Normal ECG Interpretation: Normal rate (74) X-Ray Chest Interpretation Chest Xray Interpretation: IMPRESSION: No traumatic abnormalities seen AP supine chest. Heart is enlarged no evidence for failure. Right midlung field minimal patchy streaky disease probably residual infiltrate or atelectasis from earlier in the month. Pneumonia was prominent in the right chest on old x-rays. Dictated by: Aaron Rendon M.D. on 08/03/2016 at 22:08 Approved by: Aaron Rendon M.D. on 08/03/2016 at 22:11 Interpretation / Wet Read by: Interpret - Radiologist X-Ray Interpretation Xray Interpretation: IMPRESSION: No fracture of the pelvis or either hip is appreciated. Dictated by: Aaron Rendon M.D. on 08/03/2016 at 22:11 Approved by: Aaron Rendon M.D. on 08/03/2016 at 22:14 X-Ray Ordered: Pelvis Interpretation / Wet Read by: Interpret - Radiologist CT Head Interpretation IMPRESSION: No acute intracranial abnormality. Colloid cyst of the third ventricle is present. Hydrocephalus is not identified. Diffuse atrophic change and microvascular ischemic change of aging is present. Dictated by: Aaron Rendon M.D. on 08/03/2016 at 21:45 Approved by: Aaron Rendon M.D. on 08/03/2016 at 21:54 Study: Head CT no contrast Interpretation / Wet Read by: Interpret - Radiologist CT Abd / Pelvis Interpretation Impression: There is a right acute retroperitoneal hematoma and right acute psoas muscle hematoma measures 4 cm in greates dimensions. The psoas muscle hematoma measures 10 cm in greatest dimension. Radiologist: August Blandon M.D. Transmitted at 1176, 08/03/2016 to the Emergency room Study type: Abdominal CT no contrast Interpretation / Wet Read by: Interpret - Radiologist CT C-Spine Interpretation IMPRESSION: 1. No acute bony abnormality is found in the cervical spine. Dictated by: Aaron Rendon M.D. on 08/03/2016 at 21:54 Approved by: Aaron Rendon M.D. on 08/03/2016 at 21:57 Interpretation / Wet Read by: Wet read ED physician, Interpret - Radiologist Cardiac Echo Impression Echocardiogram Report Name: ROLA GILLESPIE CStudy Da te: 07/21/2016 Height: 70 in Hospital Exam Location: [facility] Weight: 299 lb Gender: Male BSA: 2.5 m2 : 1930 Age: 86 yrs BP: 116/74 mmHg Reason For Study: CHF Ordering Physician: Performed By: Cesar Salcido Interpretation Summary 1) Mild concentric left ventricular hypertrophy with normal left ventricular size and mildly to moderately reduced systolic function (EF 45-50%). 2) Severe septal hypokinesis and apical inferior hypokinesis present. 3) Normal right ventricular size with mildly to moderately reduced systolic function. 4) Marked biatrial enlargement. 5) Moderate to severe mitral regurgitation that is directed posteriorly. Mitral leaflet do not coapt well. 6) Moderate to severe tricuspid regurgitation. 7) Pulmonary hypertension present, estimated systolic pulmonary pressure of 50mmHg. 8) Dilated IVC suggested of elevated right sided filling pressures. 9) Mildly to moderately enlarged ascending aorta (diameter 4.2cm) and mildly enlarged aortic arch (diameter 3.3cm). 10) No prior Echo available for comparison. Brief History The patient is a 86yoM with past medical history of atrial fibrillation/CHF, HFrEF, HTN admitted found down after unwitnessed GLF with subsequent findings of INR >10, retroperitoneal and psoas hematoma and hgb of 5. Recent admission from 07/21-07/28 where he was a direct admission from [place] d/t respiratory failure secondary to CHF exacerbation on bipap with supratherapeutic INR and concern for hemorrhage vs anemia of chronic disease. He was treated for CHF exacerbation, probably COPD exacerbation, PNA, and acute blood loss anemia. The patient was admitted to the hospitalist service for further evaluation and treatment. . Hospital Course The patient is a 86yo white male with atrial fibrillation/CHF, admitted after GLF (neg trauma imaging w/u) with recurrent INR >10, retroperitoneal and psoas hematoma and hgb of 5, somnolence improved w/ narcan, TIFF. s/p zosyn for SIRS as procalcitonin was positive, DPOA and family want to honor patient wishes ie, no procedures and interested in palliative options when ready to return to his SNF. 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 Santos العلي - they signed off 08/05 # Supratherapeutic INR, acute - RESOLVED, Atrial fibrillation, chronic -INR 11 on presentation -kcentra and vitamin K given - INR QAM --ANTICIPATE ASA FOR AFIB after patient is at home. # Metabolic encephalopathy, acute, present on admission resolved --held home narcotics -2/2 uremia, acute blood loss anemia -CN intact, no focal deficit -CT negative # Elevated troponin, downward trend -likely 2/2 acute renal dysfunction, no CP on admission, encephalopathic # R>L Lower extremity edema asymmetric --lower extremity doppler US negative # CHF decompensated, acute on chronic wt unchanged 101.4kg from 2 weeks ago restarted metoprolol w/ holding parameters Disposition: Plan is for patient to be transferred to a different assisted facility prior to being discharged home with hospice. Patient will be discharged today. Exam Vital Signs (Last) Date Time Temp Pulse Resp B/P Pulse Ox O2 Delivery O2 Flow Rate FiO2 08/11/16 13:49 37.1 96 18 146/79 92 Room Air Exam General: The patient is resting comfortably in bed in no apparent distress. His speech is more clear and he continues to appear more lucid. HEENT: Head is atraumatic and normocephalic with normal male pattern baldness. Eyes: Pupils are equally round and reactive to light and accommodation. Extraocular muscles are intact. Sclera are white, anicteric. Subconjunctival mucosa is pink. Ears and nose are unremarkable. Oropharynx: There is no mucosal lesions, there is no thrush, there is no pharyngitis. Neck: Is supple, there are no nodes, or masses or tenderness. Chest: Is significant for a decrease in bibasilar rales and improved breath sounds bilaterally. Heart: Rate is controlled, rhythm is regular. There is no new murmur, rub or gallop. Abdomen: Good bowel sounds are present. Abdomen is soft, nontender, no organomegaly or masses were appreciated. Extremities: Are symmetrical and well perfused. There is improvement in his edema. Neurologic: There are no focal neurological deficits. Cranial nerves II through XII are intact. There are no sensory or motor deficits. Patient remains presently confused. Psychiatric: Patients mood is calm and shows no sign of agitation. Genital: Deferred Rectal: Deferred Test 08/03/16 22:27 08/04/16 05:11 08/04/16 05:30 08/04/16 20:30 Corrected White Blood Count th/mm3 (3.8-10.1) Band Neutrophils % 0% (1-5) Lipase 59U/L (13-60) Hold Arora Top Tube Received (Received) Thyroid Stimulating Hormone (TSH) 3.390uIU/mL (0.450-4.500) Free Thyroxine 1.24ng/dL (0.82-1.77) Urine Color Straw (YELLOW) Urine Appearance Hazy (CLEAR,HAZY) Urine pH 5.0 (5.0-8.0) Urine Specific [place] 1.010 (1.003-1.035) Urine Protein Negativemg/dL (NEG,TRACE) Urine Glucose (UA) Negativemg/dL (NEGATIVE) Urine Ketones Negativemg/dL (NEGATIVE) Urine Occult Blood Moderate (NEGATIVE) Urine Nitrite Negative (NEGATIVE) Urine Bilirubin Negative (NEGATIVE) Urine Urobilinogen Normalmg/dL (NORMAL) Urine Leukocyte Esterase Negative (NEGATIVE) Urine RBC 3-10/hpf (0-2) Urine WBC 0-5/hpf (0-5) Urine Epithelial Cells Few/hpf (NONE-MOD) Urine Crystals None seen (NONE SEEN) Urine Bacteria Few/hpf (NONE-FEW) Urine Hyaline Casts 0/lpf (NONE) Urine Granular Casts Occasional (NONE SEEN) Urine Waxy Casts None seen (NONE SEEN) Urine Red Blood Cell Casts None seen (NONE SEEN) Urine White Blood Cell Casts None seen (NONE SEEN) Urine Mucus Present (None Seen) Urine Trichomonas None seen (NONE SEEN) Urine Yeast None (NONE SEEN) Urinalysis Comment None Ionized Calcium (Calculated) 3.97mg/dL (3.5-5.2) Test 08/05/16 05:28 08/07/16 06:05 08/08/16 06:15 08/11/16 05:45 Prothrombin Time 12.7sec (8.1-12.5) Prothromb Time International Ratio 1.18ratio Troponin T 0.133ug/L (0.0-0.011) Vitamin D 25-Hydroxy 45.5ng/mL (30.0-100.0) Procalcitonin 0.62ng/mL (0.00-0.08) Parathyroid Hormone (Intact) 360pg/mL (15-65) Prealbumin 16mg/dL (20-40) Phosphorus Level 4.7mg/dL (2.5-4.9) White Blood Count 8.3th/mm3 (3.8-10.1) Red Blood Count 3.16mil/mm3 (4.40-5.80) Hemoglobin 8.7g/dL (13.8-17.2) Hematocrit 29.3% (41.0-50.0) Mean Corpuscular Volume 92.7fL (81-100) Mean Corpuscular Hemoglobin 27.5pg (27.0-35.0) Mean Corpuscular Hemoglobin Concent 29.7% (32.0-37.0) Red Cell Distribution Width 18.4% (12.3-15.4) Platelet Count 169bil/L (150-400) Neutrophils (%) (Auto) 80.1% (40-74) Lymphocytes (%) (Auto) 10.3% (14-46) Monocytes (%) (Auto) 4.7% (4-12) Eosinophils (%) (Auto) 4.6% (0-5) Basophils (%) (Auto) 0.2% (0-3) Sodium Level 148mEq/L (134-144) Potassium Level 3.7mEq/L (3.5-5.2) Chloride Level 109mEq/L (97-108) Carbon Dioxide Level 26mmol/L (18-29) Blood Urea Nitrogen 57mg/dL (8-27) Creatinine 3.06mg/dL (0.76-1.27) Estimat Glomerular Filtration Rate 21mL/min (>59) Glucose Level 152mg/dL (60-99) Calcium Level 8.6mg/dL (8.5-10.1) Magnesium Level 2.5mg/dL (1.6-2.6) Total Bilirubin 0.9mg/dL (0.0-1.2) Aspartate Amino Transf (AST/SGOT) 24U/L (0-50) Alanine Aminotransferase (ALT/SGPT) 18U/L (0-44) Alkaline Phosphatase 62U/L (25-160) Total Protein 5.7g/dL (6.4-8.4) Albumin 2.7g/dL (3.4-5.0) Microbiology Results Blood cultures are negative MRSA screen is negative Discharge Medications Discharge Medications Allopurinol (Allopurinol) 300 Mg Tablet 100 MG PO DAILY Prescribed by: SONNY FREITAS MD Amlodipine (Amlodipine) 5 Mg Tablet 5 MG PO BID (Reported) Calcitriol (Rocaltrol) 0.25 Mcg Capsule 0.25 MCG PO HS (Reported) Calcium Acetate (Calcium Acetate) 667 Mg Tablet 667 MG PO TIDWM Prescribed by: SONNY FREITAS MD Cholecalciferol (Vitamin D3) (Vitamin D3) 1,000 Unit Tab.chew 1,000 UNIT PO DAILY (Reported) Ferrous Sulfate (Iron) 325 Mg Tablet 325 MG PO BID (Reported) Gabapentin (Gabapentin) 100 Mg Capsule 100 MG PO TID (Reported) Latanoprost (Latanoprost) 2.5 Ml Drops 1 GTT BOTH_EYES HS (Reported) Metoprolol Succinate ER (Metoprolol Succinate ER) 50 Mg Tab.er.24h 50 MG PO BID (Reported) Multivitamin with Minerals (Totalday Multiple) 1 Each Tablet.er 1 EACH PO DAILY (Reported) Oxybutynin Chloride (Oxybutynin Chloride) 5 Mg Tablet 5 MG PO HS (Reported) Pravastatin (Pravastatin) 40 Mg Tablet 40 MG PO HS (Reported) Sevelamer Carbonate (Renvela) 800 Mg Tablet 800 MG PO TIDWM (Reported) Sodium Bicarbonate (Sodium Bicarbonate) 650 Mg Tablet 650 MG PO BID (Reported) Timolol (Betimol) 5 Ml Drops 1 DROP BOTH_EYES HS (Reported) Torsemide (Torsemide) 20 Mg Tablet 40 MG PO DAILY (Reported) Ubidecarenone (Coq-10) 30 Mg Capsule 90 MG PO DAILY (Reported) Venlafaxine ER (Effexor XR) 75 Mg Capsule 75 MG PO DAILY Prescribed by: SONNY FREITAS MD As needed Acetaminophen (Acetaminophen) 325 Mg Tablet 650 MG PO Q4H PRN PRN For Mild Pain or Fever (Reported) Bisacodyl (Dulcolax Rectal) 10 Mg Supp.rect 10 MG RC DAILY PRN PRN For Constipation (Reported) Ipratropium/Albuterol Sulfate (Iprat-Albut 0.5-3(2.5) mg/3 mL Inhalant Soln) 3 Ml Ampul.neb 1 NEB IH Q4H PRN PRN For Shortness of Breath (Reported) Magnesium Hydroxide (Milk of Magnesia) 400 Mg/5 Ml Oral.susp 30 ML PO DAILY PRN PRN For Constipation (Reported) Followup Plan Disposition: Patient is being discharged to a assisted facility with hospice. Discharge Diet: Heart Healthy Discharge Activity: Outpatient Physical Therapy Follow-up Provider: David Nascimento MD Follow-up with PCP in: 1 week Time spent Time spent on discharging this patient was greater than 35 minutes, over half of which was involved in counseling and coordination of care. Efrain Freitas MD Aug 12, 2016 01:06
[2016-08-12] MEDS ORDERED: Venlafaxine XR 75 mg ER24 Capsule PO SCH (08:00)
== END 2016-08-11 15:10 | DRG 682 ==
LOC: EDBD 20:58 → SED 20:58 → MPC 08-04 00:32
PROVIDERS: ADMIT Internal Medicine; ATTEND Internal Medicine
PROC: 30233N1 Transfusion of Nonautologous Red Blood Cells into Peripheral Vein, Percutaneous Approach (ICD-10-PCS; principal; 2016-08-04)
PROC: 4A033R1 Measurement of Arterial Saturation, Peripheral, Percutaneous Approach (ICD-10-PCS; 2016-08-04)
DX: N17.9 Acute kidney failure, unspecified (principal); G93.41 Metabolic encephalopathy; I50.23 Acute on chronic systolic (congestive) heart failure; S36.892A Contusion of other intra-abdominal organs, initial encounter; D62 Acute posthemorrhagic anemia; I13.2 Hypertensive heart and chronic kidney disease with heart failure and with stage 5 chronic kidney disease, or end stage renal disease; R65.10 Systemic inflammatory response syndrome (SIRS) of non-infectious origin without acute organ dysfunction; S70.01XA Contusion of right hip, initial encounter; W06.XXXA Fall from bed, initial encounter; Y92.003 Bedroom of unspecified non-institutional (private) residence as the place of occurrence of the external cause; Z79.01 Long term (current) use of anticoagulants; Z87.891 Personal history of nicotine dependence; R79.1 Abnormal coagulation profile; R60.1 Generalized edema; I48.2 Chronic atrial fibrillation; N25.81 Secondary hyperparathyroidism of renal origin; N18.5 Chronic kidney disease, stage 5; F03.90 Unspecified dementia, unspecified severity, without behavioral disturbance, psychotic disturbance, mood disturbance, and anxiety